=== PATIENT | male | born 1940 | race Caucasian/White ===

== ENCOUNTER 2016-08-10 07:44 | Day surgery (SDC) | payer MEDICARE, BC ==
[~2016-08-10 07:44] MED LIST: CHONDR SU A NA/HYALUR INTRAOC KIT (SURGICARE) ONE; EPINEPHRINE INJ/PF 1 MG/1 ML AMPULE ONE; KETOROLAC TROMETHAMINE 0.45% 4 DROP/0.4 ML DROPERETTE OD PRN; LIDOCAINE 1% INJ-PF (10 MG/ML) 30 ML SDV ONE; PHENYLEPHRINE/KETOROLAC 1%-0.3% 4 ML VIAL ONE
[2016-08-10] MEDS: TETRACAINE HCL 0.5% OPH SOLN 2 ML OD PRN ×3 (08:20→09:03)
[2016-08-10] MEDS: TROPICAMIDE 1% OPH SOLN 3 ML OD PRN ×3 (08:21→08:43)
[2016-08-10] MEDS: BESIFLOXACIN HCL 0.6% OPH SUSP 5 ML BOTTLE OD PRN ×2 (08:22→08:45)
[2016-08-10] MEDS: CYCLOPENTOLATE 0.2%/PHENYLEPHRINE 1% OPH SOLN 2 ML OD PRN ×3 (08:22→08:44)
[2016-08-10] MEDS ORDERED: MIDAZOLAM 2 MG/2 ML INJ ONE ×2 (08:49→09:11)
[2016-08-10] MEDS ORDERED: FENTANYL CITRATE INJ/PF 100 MCG/2 ML AMPUL ONE (08:49)
[2016-08-10] MEDS ORDERED: FLUMAZENIL INJ 0.5 MG/5 ML VIAL IV ONE (09:34)
[2016-08-10] MEDS ORDERED: DIPHENHYDRAMINE HCL 50 MG/ML VIAL ONE (09:34)
== END 2016-08-10 11:22 | disposition home or self-care (01) ==
LOC: SC 07:44
PROVIDERS: ATTEND Internal Medicine
PROC: 08RJ3JZ Replacement of Right Lens with Synthetic Substitute, Percutaneous Approach (ICD-10-PCS; principal; 2016-08-10 09:00)
DX: H25.811 Combined forms of age-related cataract, right eye (principal); H57.03 Miosis; K21.9 Gastro-esophageal reflux disease without esophagitis; E11.9 Type 2 diabetes mellitus without complications; I10 Essential (primary) hypertension; I25.2 Old myocardial infarction; Z79.899 Other long term (current) drug therapy; Z86.73 Personal history of transient ischemic attack (TIA), and cerebral infarction without residual deficits; Z79.4 Long term (current) use of insulin; Z79.82 Long term (current) use of aspirin; Z79.02 Long term (current) use of antithrombotics/antiplatelets; Z88.8 Allergy status to other drugs, medicaments and biological substances; Z85.038 Personal history of other malignant neoplasm of large intestine; Z85.46 Personal history of malignant neoplasm of prostate
CPT/HCPCS: 66982; 82962; J3490 ×3; J2250; A9270; J1200; J3010; C9447; 142; J0171

== ENCOUNTER 2016-09-21 08:41 | Day surgery (SDC) | payer MEDICARE, BC ==
[~2016-09-21 08:41] MED LIST changes: -CHONDR SU A NA/HYALUR INTRAOC KIT (SURGICARE) ONE; -EPINEPHRINE INJ/PF 1 MG/1 ML AMPULE ONE; -LIDOCAINE 1% INJ-PF (10 MG/ML) 30 ML SDV ONE; -PHENYLEPHRINE/KETOROLAC 1%-0.3% 4 ML VIAL ONE
[2016-09-21] MEDS: TETRACAINE HCL 0.5% OPH SOLN 2 ML OD PRN ×3 (09:14→10:03)
[2016-09-21] MEDS: TROPICAMIDE 1% OPH SOLN 3 ML OD PRN ×3 (09:14→09:34)
[2016-09-21] MEDS: CYCLOPENTOLATE 0.2%/PHENYLEPHRINE 1% OPH SOLN 2 ML OD PRN ×3 (09:15→09:35)
[2016-09-21] MEDS: BESIFLOXACIN HCL 0.6% OPH SUSP 5 ML BOTTLE OD PRN ×4 (09:15→10:27)
[2016-09-21] MEDS ORDERED: PHENYLEPHRINE/KETOROLAC 1%-0.3% 4 ML VIAL ONE (09:25)
[2016-09-21] MEDS ORDERED: LIDOCAINE 1% INJ-PF (10 MG/ML) 30 ML SDV ONE (09:26)
[2016-09-21] MEDS ORDERED: CHONDR SU A NA/HYALUR INTRAOC KIT (SURGICARE) ONE (09:26)
[2016-09-21] MEDS ORDERED: MIDAZOLAM 2 MG/2 ML INJ ONE (09:36)
[2016-09-21] MEDS ORDERED: DIPHENHYDRAMINE HCL 50 MG/ML VIAL ONE (09:36)
--- NOTE | 2016-09-21 18:03 | [facility] OPERATIVE REPORT E ---
[facility] Operative Report NAME: PAOLA RODRIGUEZ AGE: 75Y DATE OF SURGERY: 09/22/2015 ROOM: PREOPERATIVE DIAGNOSES: 1. CATARACT, RIGHT EYE. POSTOPERATIVE DIAGNOSES: 1. CATARACT, RIGHT EYE. OPERATION: Complex cataract extraction with use of a Malyugin ring due to a very myotic pupil. SURGEON: GRIFFIN RANDALL M.D. ANESTHESIA: Topical. PROCEDURE: After obtaining appropriate consent, the patient's right eye was prepped and draped in sterile fashion as well as the surgeon in a sterile manner and cataract surgery was started. First a paracentesis blade was used to make a small side-port incision. Viscoelastic was used to inflate the anterior chamber. Next a 2.4 mm incision was made with the paracentesis blade. A continuous capsulorrhexis incision was made using a cystotome and Utrata forceps. Following this hydrodissection was carried out to make the lens fully loose and mobile and it was rotated 90 degrees. Following this, a zinlud-kqt-tppgfhh technique was used to phacoemulsify the lens with a CDE of 13.99. The remaining cortex was removed with irrigation/aspiration. Provisc was instilled into the capsular bag to inflate the bag. A SN60WF, 24.0 diopter lens was placed. The remaining viscoelastic material was removed with irrigation/aspiration. Following this, a 10-0 nylon suture was used to close the incision and it was found to be watertight. Vigamox was instilled in the eye and a protective shield was placed over the eye. The patient returned to the postoperative recovery in stable condition. DICTATING PHYSICIAN: GRIFFIN RANDALL M.D. [id number] PHY#: [id number] ID: [id number] JOB#: [id number] ACCT: [id number] cc:GRIFFIN RANDALL M.D. > MARY
--- NOTE | 2016-09-21 18:08 | DISCHARGE SUMMARY E ---
Discharge Summary NAME: PAOLA RODRIGUEZ : 1940 AGE: 75Y ADMITTED: 09/21/2016 DISCHARGED: 09/21/2016 REASON FOR ADMISSION: This is a 75-year-old male who underwent cataract extraction of the right eye. DIAGNOSES: 1. Cataract, right eye. HOSPITAL COURSE: The patient underwent surgery because he was having difficulty driving at night secondary to oncoming headlights and trouble reading fine print. He should be on a regular diet. No bending at his waist. No heavy lifting. He should use his Besivance, Ilevro, and Durezol at 3:00 p.m. and 8:00 p.m. and sleep with a rigid shield, and I will see him for a 1-day postoperative tomorrow. DICTATING PHYSICIAN: GRIFFIN RANDALL M.D. [id number] PHY#: [id number] ID: [id number] JOB#: [id number] ACCT: [id number] cc:GRIFFIN RANDALL M.D. > MTDD
== END 2016-09-21 11:25 | disposition home or self-care (01) ==
LOC: SC 08:41
PROVIDERS: ATTEND Internal Medicine
PROC: 08RJ3JZ Replacement of Right Lens with Synthetic Substitute, Percutaneous Approach (ICD-10-PCS; principal; 2016-09-21 10:00)
DX: H25.813 Combined forms of age-related cataract, bilateral (principal); H57.03 Miosis; E11.9 Type 2 diabetes mellitus without complications; I10 Essential (primary) hypertension; K21.9 Gastro-esophageal reflux disease without esophagitis; Z79.4 Long term (current) use of insulin; Z86.73 Personal history of transient ischemic attack (TIA), and cerebral infarction without residual deficits; Z79.899 Other long term (current) drug therapy; Z79.82 Long term (current) use of aspirin; Z79.02 Long term (current) use of antithrombotics/antiplatelets; I25.2 Old myocardial infarction; Z95.1 Presence of aortocoronary bypass graft; Z88.0 Allergy status to penicillin; Z88.8 Allergy status to other drugs, medicaments and biological substances; Z85.46 Personal history of malignant neoplasm of prostate; Z85.038 Personal history of other malignant neoplasm of large intestine
CPT/HCPCS: 66982; 82962; V2632; J2250; J3490 ×2; A9270; J1200; C9447; 142

== ENCOUNTER 2016-10-12 09:09 | Day surgery (SDC) | payer MEDICARE, BC ==
[~2016-10-12 09:09] MED LIST changes: -KETOROLAC TROMETHAMINE 0.45% 4 DROP/0.4 ML DROPERETTE OD PRN; +KETOROLAC TROMETHAMINE 0.45% 4 DROP/0.4 ML DROPERETTE OS PRN
[2016-10-12] MEDS ORDERED: MIDAZOLAM 2 MG/2 ML INJ ONE (09:10)
[2016-10-12] MEDS ORDERED: CHONDR SU A NA/HYALUR INTRAOC KIT (SURGICARE) ONE (09:24)
[2016-10-12] MEDS ORDERED: LIDOCAINE 1% INJ-PF (10 MG/ML) 30 ML SDV ONE (09:24)
[2016-10-12] MEDS ORDERED: PHENYLEPHRINE/KETOROLAC 1%-0.3% 4 ML VIAL ONE (09:24)
[2016-10-12] MEDS: TROPICAMIDE 1% OPH SOLN 3 ML OS PRN ×3 (09:44→10:05)
[2016-10-12] MEDS: CYCLOPENTOLATE 0.2%/PHENYLEPHRINE 1% OPH SOLN 2 ML OS PRN ×3 (09:44→10:05)
[2016-10-12] MEDS: BESIFLOXACIN HCL 0.6% OPH SUSP 5 ML BOTTLE OS PRN ×3 (09:44→11:03)
[2016-10-12] MEDS: TETRACAINE HCL 0.5% OPH SOLN 2 ML OS PRN ×3 (09:45→10:31)
--- NOTE | 2016-10-12 20:13 | [facility] OPERATIVE REPORT E ---
[facility] Operative Report NAME: PAOLA RODRIGUEZ AGE: 75Y DATE OF SURGERY: 10/12/2016 ROOM: PREOPERATIVE DIAGNOSIS: CATARACT, LEFT EYE. POSTOPERATIVE DIAGNOSIS: CATARACT, LEFT EYE. OPERATION: Cataract extraction with Toric intraocular lens implant of the left eye. SURGEON: GRIFFIN RANDALL M.D. ANESTHESIA: Topical. PROCEDURE: After obtaining appropriate consent, the patient's left eye was prepped and draped in sterile fashion as well as the surgeon in a sterile manner and cataract surgery was started. First a paracentesis blade was used to make a small side-port incision. Viscoelastic was used to inflate the anterior chamber. Next a 2.4 mm incision was made with the paracentesis blade. A continuous capsulorrhexis incision was made using a cystotome and Utrata forceps. Following this hydrodissection was carried out to make the lens fully loose and mobile and it was rotated 90 degrees. Following this, a hqvfoh-vks-grhsgag technique was used to phacoemulsify the lens with a CDE of 11.37. The remaining cortex was removed with irrigation/aspiration. Provisc was instilled into the capsular bag to inflate the bag. A SN6AT4, 21.5 diopter lens rotated to 176 degrees was [address]. The remaining viscoelastic material was removed with irrigation/aspiration. Following this, a 10-0 nylon suture was used to close the incision and it was found to be watertight. Vigamox was instilled in the eye and a protective shield was placed over the eye. The patient returned to the postoperative recovery in stable condition. DICTATING PHYSICIAN: GRIFFIN RANDALL M.D. [id number] PHY#: [id number] ID: [id number] JOB#: [id number] ACCT: [id number] cc:GRIFFIN RANDALL M.D. >
--- NOTE | 2016-10-12 20:13 | DISCHARGE SUMMARY E ---
Discharge Summary NAME: PAOLA RODRIGUEZ : 1940 AGE: 75Y ADMITTED: 10/12/2016 DISCHARGED: 10/12/2016 This is a 75-year-old male who underwent cataract extraction with Toric intraocular lens of the left eye. DIAGNOSIS: Cataract, left eye. He underwent surgery because he having difficulty driving at night secondary to significant glare from headlights. DISCHARGE INSTRUCTIONS: He is to be on a regular diet. No bending at his waist, no heavy lifting. He is to use Besivance, Ilevro, and Durezol at 3:00 p.m. and 8:00 p.m., and sleep with a rigid shield. I will see him for his 1-day postoperative tomorrow. DICTATING PHYSICIAN: GRIFFIN RANDALL M.D. [id number] PHY#: [id number] ID: [id number] JOB#: [id number] ACCT: [id number] cc:GRIFFIN RANDALL M.D. >
== END 2016-10-12 12:05 | disposition home or self-care (01) ==
LOC: SC 09:09
PROVIDERS: ATTEND Internal Medicine
PROC: 08RK3JZ Replacement of Left Lens with Synthetic Substitute, Percutaneous Approach (ICD-10-PCS; principal; 2016-10-12 10:30)
DX: H25.812 Combined forms of age-related cataract, left eye (principal); Z96.1 Presence of intraocular lens; H57.03 Miosis; I10 Essential (primary) hypertension; E11.9 Type 2 diabetes mellitus without complications; Z88.0 Allergy status to penicillin; Z88.8 Allergy status to other drugs, medicaments and biological substances
CPT/HCPCS: 66984; 82962; V2787; J2250; J3490 ×2; A9270; C9447; 142

== ENCOUNTER → 2016-12-07 | Outpatient (CLI) | payer MEDICARE, BC ==
[2016-12-07 11:25] LABS: ABSOLUTE EOSINOPHILS # (AUTO) 0.1 10^3/uL (0.0-0.6); ABSOLUTE MONOCYTES (AUTO) 0.9 10^3/uL (0.1-1.4); ABSOLUTE NEUT (AUTO) 4.8 10^3/uL (1.7-8.2); BASOPHILS % (AUTO) 0.2 % (0-2); EOSINOPHILS % (AUTO) 1.6 % (0-6); HEMATOCRIT 36.9 % (37.9-51.0); HEMOGLOBIN 12.4 g/dL (13.5-17.0); HGB HCT DIFFERENCE 0.3; LYMPHOCYTES % (AUTO) 14.7 % (13-45); MEAN CORPUSCULAR HEMOGLOBIN 33.6 pg (27.0-33.4); MEAN CORPUSCULAR HGB CONC 33.6 g/dL (32.0-36.0); MEAN CORPUSCULAR VOLUME 100 fl (80-97); MONOCYTES % (AUTO) 12.7 % (3-13); RED BLOOD COUNT 3.69 10^6/uL (4.35-5.55); RED CELL DISTRIBUTION WIDTH 13.4 % (11.5-14.0); SEGMENTED NEUTROPHILS % (AUTO) 70.8 % (42-78); WHITE BLOOD COUNT 6.8 10^3/uL (4.0-10.5)
[2016-12-07 11:47] LABS: IRON 130.8 ug/dL (49-181)
== END ==
LOC: LAB 10:25
PROVIDERS: ATTEND Specialist
DX: D50.9 Iron deficiency anemia, unspecified (principal); C25.0 Malignant neoplasm of head of pancreas; R97.0 Elevated carcinoembryonic antigen [CEA]; R10.9 Unspecified abdominal pain
CPT/HCPCS: 36415; 82378; 82728; 83540; 85025

== ENCOUNTER → 2016-12-11 | Outpatient (CLI) | payer MEDICARE, BC ==
--- NOTE | 2016-12-11 14:51 | RADIOLOGY REPORT (SQ) ---
EXAM DESCRIPTION: CAROTID DOPPLER COMPLETED DATE/TIME: 12/11/2016 2:43 pm REASON FOR STUDY: DIZZINESS R42 DIZZINESS AND GIDDINESS prior right endarterectomy COMPARISON: None. TECHNIQUE: Grayscale ultrasound, Doppler velocity and spectra, and color Doppler images acquired of the extra-cranial carotid and vertebral arteries. Images stored on PACS. LIMITATIONS: None. FINDINGS: RIGHT CAROTID CCA Velocities: Within normal limits. ICA Velocities Peak systolic 1.2 m/s. End diastolic 0.25 m/s. Proximal ICA/CCA peak systolic ratio 1.2. Spectra normal. No significant plaque. LEFT CAROTID CCA Velocities: Within normal limits. ICA Velocities Peak systolic 0.81 m/s. End diastolic 0.20 m/s. Proximal ICA/CCA peak systolic ratio 0.8. There is complex plaque in the carotid bulb. VERTEBRAL ARTERIES: Antegrade flow. Normal waveforms. SUBCLAVIAN ARTERIES: No finding. OTHER: Velocities are elevated in the left external carotid artery. IMPRESSION: NO HEMODYNAMICALLY SIGNIFICANT STENOSIS. COMMENT: Quality ID #195: Velocity criteria are extrapolated from the diameter data as defined by t he Society of Radiologists in Ultrasound Consensus Conference. Radiology 2003: 229; 340-346. TECHNICAL DOCUMENTATION: JOB ID: [id number] [employer]- All Rights Reserved
== END ==
LOC: SP 13:43
PROVIDERS: ATTEND Family Medicine
DX: R42 Dizziness and giddiness (principal)
CPT/HCPCS: 93880

== ENCOUNTER → 2016-12-19 | Outpatient (CLI) | payer MEDICARE, BC ==
--- NOTE | 2016-12-19 11:56 | RADIOLOGY REPORT (SQ) ---
EXAM DESCRIPTION: MRA NECK WITHOUT COMPLETED DATE/TIME: 12/19/2016 11:13 am REASON FOR STUDY: ARTERIOSCLEROSIS OF CAROTID ARTERY I65.29 OCCLUSION AND STENOSIS OF UNSPECIFIED C AROTID ARTERY I65.23 OCCLUSION AND STENOSIS OF BILATERAL CAROTID ARTERIES COMPARISON: None. TECHNIQUE: Axial 2-D volume acquisition imaging through the extracranial carotid and vertebral arter ies with reformatting using 3-D MIPS. LIMITATIONS: None. FINDINGS: RIGHT CAROTID ARTERY: No stenosis or occlusive changes. Limited visualization of the orig in. LEFT CAROTID ARTERY: No stenosis or occlusive changes. Limited visualization of the origin. VERTEBRAL ARTERY: The left vertebral artery is dominant and patent. The right vertebral artery is sm all and inconsistently visualized throughout its course. OTHER: No other significant finding. IMPRESSION: 1. UNREMARKABLE MRI OF THE CAROTID ARTERIES. NO SIGNIFICANT STENOSIS. 2. DOMINANT LEFT VERTEBRAL ARTERY. RIGHT VERTEBRAL ARTERY IS VERY SMALL AND INCONSISTENTLY VISUALIZE D. CANNOT EXCLUDE STENOSIS OR SHORT SEGMENT OCCLUSION. COMMENT: Quality ID #195: Measurements of distal internal carotid diameter were used as the denomin ator for stenosis measurement. TECHNICAL DOCUMENTATION: JOB ID: [id number] [employer] All Rights Reserved
--- NOTE | 2016-12-19 12:03 | RADIOLOGY REPORT (SQ) ---
EXAM DESCRIPTION: MRA HEAD WITHOUT COMPLETED DATE/TIME: 12/19/2016 11:13 am REASON FOR STUDY: OCCLUSION AND STENOSIS OF BILATERAL CAROTID ARTERIES I65.29 OCCLUSION AND STENOSI S OF UNSPECIFIED CAROTID ARTERY I65.23 OCCLUSION AND STENOSIS OF BILATERAL CAROTID ARTERIES COMPARISON: None. TECHNIQUE: Axial 3-D uzwe-jx-xxzozj acquisition imaging performed through the brain in the area of t he [place]. Images reformatted using 3-D MIPS. LIMITATIONS: None. FINDINGS: SOURCE IMAGES: No unexpected findings on source images. No large masses. 3-D MIP: No aneurysm. No occlusions. Focal narrowing of the cavernous right internal carotid artery . origin of the right posterior cerebral artery. Apparent focal narrowing at the origin of th e right superior cerebellar artery. OTHER: No other significant finding. IMPRESSION: SUSPECT STENOSIS OF THE CAVERNOUS RIGHT INTERNAL CAROTID ARTERY. FOCAL STENOSIS AT THE ORIGIN OF THE RIGHT SUPERIOR CEREBELLAR ARTERY. NO OCCLUSIONS. TECHNICAL DOCUMENTATION: JOB ID: [id number] [employer]- All Rights Reserved
== END ==
LOC: RAD 09:06
PROVIDERS: ATTEND Internal Medicine Cardiovascular Disease
DX: I65.23 Occlusion and stenosis of bilateral carotid arteries (principal)
CPT/HCPCS: 70544; 70547

== ENCOUNTER → 2017-03-21 | Outpatient (CLI) | payer MEDICARE, BC ==
[2017-03-21 08:54] LABS: ABSOLUTE EOSINOPHILS # (AUTO) 0.2 10^3/uL (0.0-0.6); ABSOLUTE NEUT (AUTO) 6.5 10^3/uL (1.7-8.2); BASOPHILS % (AUTO) 0.3 % (0-2); EOSINOPHILS % (AUTO) 1.8 % (0-6); HEMOGLOBIN 13.5 g/dL (13.5-17.0); HGB HCT DIFFERENCE -0.5; LYMPHOCYTES % (AUTO) 11.5 % (13-45); MEAN CORPUSCULAR HEMOGLOBIN 33.5 pg (27.0-33.4); MEAN CORPUSCULAR VOLUME 101 fl (80-97); MONOCYTES % (AUTO) 11.8 % (3-13); RED BLOOD COUNT 4.04 10^6/uL (4.35-5.55); RED CELL DISTRIBUTION WIDTH 12.8 % (11.5-14.0); SEGMENTED NEUTROPHILS % (AUTO) 74.6 % (42-78); WHITE BLOOD COUNT 8.7 10^3/uL (4.0-10.5)
[2017-03-21 09:22] LABS: ALANINE AMINOTRANSFERASE 21 U/L (21-72); ALBUMIN 4.5 g/dL (3.5-5.0); ALKALINE PHOSPHATASE 79 U/L (38-126); ANION GAP 10 (5-19); ASPARTATE AMINO TRANSFERASE 22 U/L (17-59); BILIRUBIN,DIRECT 0.4 mg/dL (0.0-0.4); BILIRUBIN,TOTAL 0.5 mg/dL (0.2-1.3); BLOOD UREA NITROGEN 18 mg/dL (7-20); CALCIUM 9.9 mg/dL (8.4-10.2); CARBON DIOXIDE 30 mmol/L (22-30); CHLORIDE 100 mmol/L (98-107); CHOLESTEROL 162.02 mg/dL (0-200); CREATININE RESULT 1.19 mg/dL (0.52-1.25); Direct HDL 30 mg/dL (>40); GLUCOSE 197 mg/dL (75-110); POTASSIUM 5.2 mmol/L (3.6-5.0); SODIUM 140.1 mmol/L (137-145); TOTAL PROTEIN 7.9 g/dL (6.3-8.2); TRIGLYCERIDES 301 mg/dL (<150)
[2017-03-21 09:33] LABS: DIRECT LDL 92 mg/dL (<100)
[2017-03-21 09:37] LABS: VLDL CHOLESTEROL 60.2 mg/dL (10-31)
== END ==
LOC: LAB 08:40
PROVIDERS: ATTEND Family Medicine
DX: E78.2 Mixed hyperlipidemia (principal); E11.9 Type 2 diabetes mellitus without complications; I10 Essential (primary) hypertension
CPT/HCPCS: 36415; 80053; 80061; 83036; 85025

== ENCOUNTER → 2017-06-07 | Outpatient (CLI) | payer MEDICARE, BC ==
--- NOTE | 2017-06-07 12:42 | RADIOLOGY REPORT (SQ) ---
EXAM DESCRIPTION: CT SOFT TISSUE NECK WITH COMPLETED DATE/TIME: 06/07/2017 10:42 am REASON FOR STUDY: CHRONIC SIALOADENITIS K11.23 CHRONIC SIALOADENITIS COMPARISON: 03/23/[address] soft tissue neck CT brain 03/02/2016 TECHNIQUE: Post IV contrasted scanning from skull base through lung apices with review of bone, soft tissue and lung windows. Reconstructed coronal and sagittal MPR images reviewed. All images stored on PACS. All CT scanners at this facility use dose modulation, iterative reconstruction, and/or weight based d osing when appropriate to reduce radiation dose to as low as reasonably achievable (ALARA). [facility]: Dose Right [facility]: CareDose [facility]: Dose Right [facility]: Teradose 4D [facility]: Proenza Schouer CONTRAST TYPE AND DOSE: contrast/concentration: Isovue 370.00 mg/ml; Total Contrast Delivered: 75.0 ml; Total Saline Delivered: 55.0 ml The patient was pre-medicated for contrast allergy with an oral steroid prep. She had no immediate r eaction post injection of Isovue 370. RENAL FUNCTION: Creatinine 1.2 RADIATION DOSE: 23.3 mGy . LIMITATIONS: None. FINDINGS: SKULL BASE: Inferior brain parenchyma in the field of view is unremarkable. Post cataract surgery. MAJOR SALIVARY GLANDS: Right sub mandibular gland is not identified. This could be surgically absent or severely atrophied. Left submandibular gland unremarkable. Sublingual glands unremarkable. The bilateral parotid glands exhibits diffuse fatty replacement and are diffusely enlarged. No calcu li within the glands for Torsten's duct. No carotid ductal dilatation. No focal masses. No surroun ding inflammatory change in the adjacent fat. LYMPHADENOPATHY: No adenopathy. MUCOSAL MASSES OR ASYMMETRY: No mucosal masses or asymmetry. LARYNX/CORDS: No abnormal findings. VASCULAR STRUCTURES: There is carotid bifurcation calcification bilaterally, right bifurcation is pos t endarterectomy, widely patent. On the left side, calcific plaque is present causing about 50% diam eter narrowing of the proximal left ICA. Vertebral arteries are patent, left vertebral artery domina nt. Origins of the great vessels off the aortic arch are unremarkable. LUNG APICES: Clear. BONES: Mild degenerative disc changes in the cervical spine without high-grade central or foraminal s tenosis THYROID: Normal size. No masses. PARANASAL SINUSES: Clear. OTHER: No other significant finding. IMPRESSION: Post right carotid endarterectomy Right submandibular gland not identified, may be surgically absent Bilateral parotid fatty gland replacement, no dilated ducts, stone, or parotid masses are identified TECHNICAL DOCUMENTATION: JOB ID: [id number] Quality ID # [id number]: Final reports with documentation of one or more dose reduction techniques (e.g., Au tomated exposure control, adjustment of the mA and/or kV according to patient size, use of iterative reconstruction technique) 2010 [employer]- All Rights Reserved
== END ==
LOC: RAD 10:01
PROVIDERS: ATTEND Otolaryngology
DX: K11.23 Chronic sialoadenitis (principal)
CPT/HCPCS: 70491; 82565

== ENCOUNTER 2017-06-13 09:17 | Day surgery (SDC) | payer MEDICARE, BC ==
--- NOTE | 2017-06-12 14:37 | HISTORY AND PHYSICAL E ---
History and Physical NAME: PAOLA RODRIGUEZ : 1940 AGE: 76Y ADMITTED: 06/13/2017 ROOM: REASON FOR ADMISSION: Patient is being admitted for colon exam. HISTORY OF PRESENT ILLNESS: The patient is known to me. I saw him in the year 2000. At that time, he did have colonoscopy. PAST MEDICAL HISTORY: 1. Patient did have resected polyp from transverse colon and ascending colon, and sigmoid diverticulosis. 2. History of coronary artery disease. Patient's sagger soak in [address] Weeks. 3. Hiatus hernia and reflux. The patient used to see Dr. Khanna. REVIEW OF SYSTEMS: Hypertension, diabetes, coronary artery disease. SURGERIES: Appendectomy, tonsillectomy. He did have colonoscopy in 2002 showing polyps of ascending colon, adenomatous polyp, sigmoid diverticulosis, hiatal hernia and reflux. The patient did have another colonoscopy in 2013, at that time, 73 years old. Benign-looking polyp, ascending colon, 0.5 cm, resected by biopsy, and the polyp came back adenomatous polyp of ascending colon. MEDICATIONS: 1. Glucotrol. 2. Nitro. 3. Zantac. 4. Plavix. 5. Metoprolol. 6. Nexium. 7. Crestor. 8. Lexapro. 9. Fish oil. 10. Baby aspirin. ALLERGIES: 1. IODINE. 2. . PHYSICAL EXAMINATION: GENERAL: Blood pressure is 110/60, pulse 80, respirations 18, temp is 98. HEAD, EYES, EARS, NOSE, THROAT: Normal. NECK: Supple. LUNGS: Clear. ABDOMEN: Soft. NEUROLOGIC: Negative. LABORATORY DATA: Most recent labs are a white count of 6, hemoglobin 12, hematocrit 36. The patient's iron is normal. CEA is normal. CONCLUSION: 1. History of polyps. 2. Coronary artery disease. PLAN: Patient is admitted for colon screening on 06/13/2017. DICTATING PHYSICIAN: OLGA FOSTER M.D. [id number] PHY#: [id number] ID: [id number] JOB#: [id number] ACCT: [id number] cc:OLGA FOSTER M.D. >
[2017-06-13] MEDS ORDERED: ONDANSETRON HCL INJ/PF 4 MG/2 ML SDV ONE (09:51)
[2017-06-13] MEDS ORDERED: GLYCOPYRROLATE INJ 0.4 MG/2 ML VIAL ONE (09:51)
[2017-06-13] MEDS ORDERED: NALOXONE HCL INJ/PF 0.4 MG/1 ML SDV ONE (09:51)
[2017-06-13] MEDS ORDERED: FLUMAZENIL INJ 0.5 MG/5 ML VIAL ONE (09:52)
[2017-06-13] MEDS ORDERED: FENTANYL CITRATE INJ/PF 100 MCG/2 ML AMPUL ONE (09:52)
[2017-06-13] MEDS ORDERED: MIDAZOLAM 2 MG/2 ML INJ ONE (09:52)
[2017-06-13] MEDS ORDERED: EPINEPHRINE INJ 1 MG/10 ML DISP.SYRIN ONE (09:52)
[2017-06-13] MEDS ORDERED: GLUCAGON,HUMAN RECOMB 1 MG INJ ONE (09:53)
[2017-06-13] MEDS: MIDAZOLAM 2 MG/2 ML INJ ONE ×2 (10:33→10:46)
[2017-06-13] MEDS: MORPHINE SULFATE 10 MG/ML INJ ONE ×2 (10:35→10:44)
[2017-06-13 12:00] VITALS: BP 128/72
[2017-06-13 12:40] LABS: ABSOLUTE EOSINOPHILS # (AUTO) 0.1 10^3/uL (0.0-0.6); ABSOLUTE LYMPHOCYTES (AUTO) 1.2 10^3/uL (0.5-4.7); ABSOLUTE MONOCYTES (AUTO) 1.3 10^3/uL (0.1-1.4); ABSOLUTE NEUT (AUTO) 11.3 10^3/uL (1.7-8.2); BASOPHILS % (AUTO) 0.2 % (0-2); EOSINOPHILS % (AUTO) 0.8 % (0-6); HEMATOCRIT 39.9 % (37.9-51.0); HEMOGLOBIN 13.7 g/dL (13.5-17.0); HGB HCT DIFFERENCE 1.2; LYMPHOCYTES % (AUTO) 8.3 % (13-45); MEAN CORPUSCULAR HEMOGLOBIN 33.7 pg (27.0-33.4); MEAN CORPUSCULAR HGB CONC 34.3 g/dL (32.0-36.0); MEAN CORPUSCULAR VOLUME 98 fl (80-97); MONOCYTES % (AUTO) 9.6 % (3-13); RED BLOOD COUNT 4.06 10^6/uL (4.35-5.55); RED CELL DISTRIBUTION WIDTH 13.5 % (11.5-14.0); SEGMENTED NEUTROPHILS % (AUTO) 81.1 % (42-78); WHITE BLOOD COUNT 13.9 10^3/uL (4.0-10.5)
--- NOTE | 2017-06-13 13:27 | DISCHARGE SUMMARY E ---
Discharge Summary NAME: PAOLA RODRIGUEZ : 1940 AGE: 76Y ADMITTED: 06/13/2017 DISCHARGED: 06/13/2017 PROCEDURE: Colonoscopy. FINAL DIAGNOSES: 1. Diverticulosis sigmoid descending colon. 2. Diminutive polyp 2 mm cecum. 3. Diminutive polyp 2 mm transverse colon. 4. Large amount of stool in the right colon. RECOMMENDATION: Patient discharged with full liquid. Hold aspirin, nonsteroidal, and Plavix for today. Patient to see us in the office in the next few days. Patient allergic to FENTANYL, PENICILLIN, TETANUS, IODINE, GLUCOPHAGE, PREDNISONE, TAGAMET, AND INVOKANA. Colonoscopy no bleeding, no malignancy. I am going to obtain baseline CBC and CEA. DICTATING PHYSICIAN: OLGA FOSTER M.D. [id number] [id number] PHY#: [id number] ID: [id number] JOB#: [id number] ACCT: [id number] cc:OLGA FOSTER M.D. >
--- NOTE | 2017-06-13 13:34 | OPERATIVE REPORT E ---
Operative Report NAME: PAOLA RODRIGUEZ : 1940 AGE: 76Y DATE OF SURGERY: 06/13/2017 ROOM: PREOPERATIVE DIAGNOSES: 1. Colon screening. 2. History of polyps. POSTOPERATIVE DIAGNOSES: 1. Diverticulosis sigmoid descending colon. 2. Diminutive polyp in the transverse colon 2 mm, small biopsy. 3. A 2 mm diminutive polyp in the cecum. SURGEON: OLGA FOSTER M.D. DESCRIPTION: The right colon has large amount of solid stool. No biopsy obtained. Small tiny polyp 2 mm in the cecum. Cecum otherwise normal. Ascending colon normal. Transverse colon 2 mm diminutive polyp, sigmoid descending colon diverticulosis. Rectum shows mild external hemorrhoids. CONCLUSION: No evidence of malignancy. No bleeding. Diminutive tiny polyps. External hemorrhoids. Inadequate prep. RECOMMENDATION: Followup colonoscopy after 2 years with better prep. SEDATION: Patient allergic to FENTANYL. It caused him itching. We gave him 5 mg of morphine, 4 mg of Versed with adequate sedation. He is not allergic to morphine. He received 5 mg with good report and good sedation. He received prior morphine at [facility], he said, with no problem. We gave him morphine 5 mg and he responded nicely. DICTATING PHYSICIAN: OLGA FOSTER M.D. [id number] [id number] PHY#: [id number] ID: [id number] JOB#: [id number] ACCT: [id number] cc:OLGA FOSTER M.D. >
== END 2017-06-13 12:15 | disposition home or self-care (01) ==
LOC: END 09:17
PROVIDERS: ATTEND Specialist
PROC: 0DJD8ZZ Inspection of Lower Intestinal Tract, Via Natural or Artificial Opening Endoscopic (ICD-10-PCS; principal; 2017-06-13 10:00)
DX: Z12.11 Encounter for screening for malignant neoplasm of colon (principal); K57.30 Diverticulosis of large intestine without perforation or abscess without bleeding; D12.0 Benign neoplasm of cecum; D12.3 Benign neoplasm of transverse colon; R97.0 Elevated carcinoembryonic antigen [CEA]; K64.4 Residual hemorrhoidal skin tags; Z86.010 Personal history of colon polyps; I10 Essential (primary) hypertension; E11.9 Type 2 diabetes mellitus without complications; I25.10 Atherosclerotic heart disease of native coronary artery without angina pectoris; K21.9 Gastro-esophageal reflux disease without esophagitis; K44.9 Diaphragmatic hernia without obstruction or gangrene; Z79.02 Long term (current) use of antithrombotics/antiplatelets; Z79.899 Other long term (current) drug therapy; Z79.84 Long term (current) use of oral hypoglycemic drugs; Z91.048 Other nonmedicinal substance allergy status
CPT/HCPCS: 36415; 82962; 82378; 85025; G0121; J2250; J0171; J1610; J2270; J2405; 45378; J2310; J3010; J3490

== ENCOUNTER 2017-09-13 00:01 | Observation (INO) | payer MEDICARE, BC ==
[2017-09-13] MEDS ORDERED: ASPIRIN 81 MG TABLET, CHEWABLE PO ONE (00:17)
--- NOTE | 2017-09-13 00:29 | ER Document Report ---
ED General - General Stated Complaint: CHEST PAIN Time Seen by Provider: 09/13/17 00:17 TRAVEL OUTSIDE OF THE [place] IN LAST 30 DAYS: No - HPI Notes: Patient is a 76-year-old male with a history of coronary artery disease (prev coronary bypass, stent placement), carotid artery stenosis, diabetes, hypercholesterolemia who presents to the ED complaining of intermittent episodes of left sided chest pain with one episode of vomiting and diarrhea this evening. Patient states that the pain did not radiate. Patient states that the pain would last for several minutes. Nitro took away his pain. Patient currently does not have any chest pain, but did have pain prior to arrival when EMS arrived. Patient did receive 324 mg of aspirin when paramedics arrived. Patient has not had any associated dyspnea on exertion. Patient states that he is no longer on any blood thinners as he had a bleeding issue in the past. Patient states that he is otherwise eating and drinking without any difficulties. He is ambulating without any difficulties as well. He is urinating normally. Denies any headache, fever, neck pain, URI, sore throat, palpitations, syncope, cough, shortness of breath, wheeze, dyspnea, abdominal pain, nausea, urinary retention, dysuria, hematuria, back pain, loss of control of bowel or bladder, numbness/tingling, saddle anesthesia, muscle paralysis/weakness, dizziness, weakness, diaphoresis, or rash. Patient denies any smoking or IV drug use. Denies any previous history of DVT or PE. No prolonged immobilization, distance travel, or hormone use. - Related Data Allergies/Adverse Reactions: metformin [From Glucophage] Allergy (Intermediate, Verified 06/13/17 09:48) VOMITING, HIVES metformin HCl [From Glucophage] Allergy (Intermediate, Verified 06/13/17 09:48) NAUSEA, HIVES Penicillins Allergy (Intermediate, Verified 06/13/17 09:48) RASH Tetanus Vaccines and Toxoid [Tetanus] Allergy (Intermediate, Verified 06/13/17 09:48) RASH cimetidine [From Tagamet] Allergy (Verified 06/13/17 09:48) cimetidine HCl [From Tagamet] Allergy (Verified 06/13/17 09:48) fentanyl Allergy (Verified 06/13/17 09:48) Generalized Itching [place] Allergy (Intermediate, Uncoded 10/12/16 10:19) RASH Past Medical History - Social History Smoking Status: Never Smoker Family History: Reviewed & Not Pertinent - Past Medical History Cardiac Medical History: Reports: Hx Coronary Artery Disease, Hx Heart Attack - SLIGHT X2, Hx Hypercholesterolemia, Hx Hypertension - MEDS, Hx Peripheral Vascular Disease Pulmonary Medical History: Reports: Hx COPD, Hx Pneumonia Denies: Hx Asthma, Hx Bronchitis Neurological Medical History: Reports: 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 Denies: Hx Seizures Endocrine Medical History: Reports: Hx Diabetes Mellitus Type 2 GI Medical History: Reports: Hx Gastroesophageal Reflux Disease. Denies: Hx Hepatitis, Hx Hiatal Hernia, Hx Ulcer Musculoskeltal Medical History: Reports Hx Arthritis - generalized Psychiatric Medical History: Reports: Hx Depression Infectious Medical History: Denies: Hx Hepatitis Past Surgical History: Reports: Hx Appendectomy, Hx Cardiac Surgery - Quad bypass, stents x2., Hx Carotid Endarterectomy - RIGHT, Hx Coronary Artery Bypass Graft - 4 vessel CABG 2001, Hx Coronary Stent - x2, 2006, Hx Open Heart Surgery - JUN 2001,CAROTID 2001, Hx Orthopedic Surgery - 15 surgeries on the right arm and hand, Hx Tonsillectomy. Denies: Hx Pacemaker - CARDIAC IMPLANT MONITOR HAD 1 YEAR FOR DIZZINESS - Immunizations Hx Diphtheria, Pertussis, Tetanus Vaccination: No - allergic Hx Pneumococcal Vaccination: 01/20/07 Review of Systems - Review of Systems -: Yes All other systems reviewed and negative Physical Exam - Vital signs Vitals: Temp Pulse Resp BP Pulse Ox 98.3 F 84 18 149/69 H 98 09/13/17 00:01 09/13/17 00:01 09/13/17 00:01 09/13/17 00:01 09/13/17 00:01 - Notes Notes: PHYSICAL EXAMINATION: GENERAL: Well-appearing, well-nourished and in no acute distress. A&Ox4. Appears comfortable and answers questions appropriately. HEAD: Atraumatic, normocephalic. EYES: Pupils equal round and reactive to light, extraocular movements intact, sclera anicteric, conjunctiva are normal. ENT: Nares patent and without discharge. oropharynx clear without exudates. No tonsilar hypertrophy or erythema. Moist mucous membranes. NECK: Normal range of motion, supple without lymphadenopathy Chest: non-tender. no flail chest. LUNGS: Breath sounds clear to auscultation bilaterally and equal. No wheezes rales or rhonchi. HEART: Regular rate and rhythm without murmurs, rubs, gallops. ABDOMEN: Soft, nontender, nondistended abdomen. No guarding, no rebound. No masses appreciated. Normal bowel sounds present. No CVA tenderness bilaterally. Musculoskeletal: FROM to passive/active. Strength 5+/5. Ken neg b/l. Calves are soft, nontender, and non-erythematous. Extremities: No cyanosis, clubbing, or edema b/l. Peripheral pulses 2+. Capillary refill less than 3 seconds. NEUROLOGICAL: Cranial nerves grossly intact. Normal speech, normal gait. Normal sensory, motor exams PSYCH: Normal mood, normal affect. SKIN: Warm, Dry, normal turgor, no rashes or lesions noted. Course - Re-evaluation Re-evalutation: 09/13/17 00:29 Chest pain protocol started. labs and imaging pending pt received aspirin 324mg when EMS arrived Currently asymptomatic. 09/13/17 03:16 CBC, CMP, cardiac enzymes 2/EKG, chest x-ray are all unremarkable for any acute pathology. Patient has remained asymptomatic at this time. Vitals are stable. PE is otherwise unremarkable. Patient has a heart score of 4. Reviewed with the hospitalist who accepted patient for chest pain observation. Patient and family are in agreement with admission/plan. - Vital Signs Vital signs: Temp Pulse Resp BP Pulse Ox 98.3 F 84 17 141/64 H 97 09/13/17 00:01 09/13/17 00:01 09/13/17 01:00 09/13/17 01:00 09/13/17 01:00 - Laboratory Result Diagrams: 09/12/17 23:36 09/12/17 23:36 Laboratory results interpreted by me: 09/12/17 09/12/17 23:36 23:36 RBC 3.70 L Hgb 12.1 L Hct 35.1 L RDW 14.8 H Lymphocytes % 11.2 L Est GFR (Non-Af Amer) 59 L Direct Bilirubin 0.5 H ALT 18 L Creatine Kinase 28 L Discharge - Discharge Clinical Impression: Chest pain Qualifiers: Chest pain type: unspecified Qualified Code(s): R07.9 - Chest pain, unspecified Condition: Stable Disposition: ADMITTED OBSERVATION Admitting Provider: Hospitalist - Dr. Kenney Unit Admitted: Telemetry Referrals: MAE DIA MD [Primary Care Provider] - Follow up as needed
[2017-09-13 00:30] LABS: ABSOLUTE EOSINOPHILS # (AUTO) 0.1 10^3/uL (0.0-0.6); ABSOLUTE LYMPHOCYTES (AUTO) 1.1 10^3/uL (0.5-4.7); ABSOLUTE MONOCYTES (AUTO) 1.2 10^3/uL (0.1-1.4); ABSOLUTE NEUT (AUTO) 7.6 10^3/uL (1.7-8.2); BASOPHILS % (AUTO) 0.1 % (0-2); EOSINOPHILS % (AUTO) 0.8 % (0-6); HEMATOCRIT 35.1 % (37.9-51.0); HEMOGLOBIN 12.1 g/dL (13.5-17.0); LYMPHOCYTES % (AUTO) 11.2 % (13-45); MEAN CORPUSCULAR HEMOGLOBIN 32.5 pg (27.0-33.4); MEAN CORPUSCULAR HGB CONC 34.3 g/dL (32.0-36.0); MEAN CORPUSCULAR VOLUME 95 fl (80-97); MONOCYTES % (AUTO) 12.1 % (3-13); PLATELET COUNT 335 10^3/uL (150-450); RED CELL DISTRIBUTION WIDTH 14.8 % (11.5-14.0); SEGMENTED NEUTROPHILS % (AUTO) 75.8 % (42-78); TOTAL CELLS COUNTED % (AUTO) 100 %
--- NOTE | 2017-09-13 00:35 | RADIOLOGY REPORT (SQ) ---
EXAM DESCRIPTION: CHEST SINGLE VIEW CLINICAL HISTORY: chest pain COMPARISON: 03/02/2026 FINDINGS: Single frontal view of the chest. Atherosclerotic calcification and tortuosity of thoracic aorta. Heart is not enlarged. Prior median sternotomy. Leads overlie the chest. Blunting of the left costophrenic angle with linear left basilar opacities. No pneumothorax. No acute osseous abnormalities. Upper abdominal soft tissues are unremarkable. IMPRESSION: 1. Blunting of the left costophrenic angle may be related to pleural thickening or small left pleural effusion. 2. Streaky left basilar opacities may be related to scar/atelectasis however developing pneumonia could produce a similar appearance. Continued radiographic follow-up recommended.
[2017-09-13] MEDS ORDERED: ASPIRIN 81 MG TABLET, CHEWABLE ONE (00:42)
[2017-09-13 00:43] LABS: ALANINE AMINOTRANSFERASE 18 U/L (21-72); ALKALINE PHOSPHATASE 70 U/L (38-126); ANION GAP 12 (5-19); ASPARTATE AMINO TRANSFERASE 21 U/L (17-59); BILIRUBIN,DIRECT 0.5 mg/dL (0.0-0.4); BILIRUBIN,TOTAL 0.7 mg/dL (0.2-1.3); BLOOD UREA NITROGEN 15 mg/dL (7-20); CALCIUM 9.4 mg/dL (8.4-10.2); CARBON DIOXIDE 26 mmol/L (22-30); CHLORIDE 101 mmol/L (98-107); CREATINE KINASE 28 U/L (55-170); GLUCOSE 96 mg/dL (75-110); SODIUM 139.1 mmol/L (137-145); TOTAL PROTEIN 7.4 g/dL (6.3-8.2)
[2017-09-13 01:06] LABS: CREATINE KINASE MB 0.92 ng/mL (<4.55)
[2017-09-13 01:09] LABS: TROPONIN I < 0.012 ng/mL
[2017-09-13] MEDS ORDERED: ACETAMINOPHEN 325 MG TABLET PO PRN (03:28)
[2017-09-13] MEDS ORDERED: DOCUSATE SODIUM 100 MG CAPSULE PO PRN ×2 (03:28→17:00)
[2017-09-13] MEDS ORDERED: PROMETHAZINE HCL INJ 25 MG/1 ML VIAL IV PRN (03:28)
[2017-09-13] MEDS ORDERED: DEXTROSE 40% GEL 15 GM TUBE PO PRN ×2 (03:28)
[2017-09-13] MEDS ORDERED: ALBUTEROL SULFATE 0.083% NEB 2.5 MG/3 ML AMPUL NEB PRN (03:28)
[2017-09-13] MEDS ORDERED: GLUCAGON,HUMAN RECOMB 1 MG INJ SUBCUT PRN (03:28)
[2017-09-13] MEDS ORDERED: DEXTROSE 50%-WATER 25 GM/50 ML DISP.SYRIN IV PRN ×2 (03:28)
[2017-09-13] MEDS ORDERED: INFLUENZA ADLT QUAD (36MOS+) 2017-18 VAC 0.5 ML SYR IM PRN (04:51)
[2017-09-13] MEDS ORDERED: INSULIN LISPRO 100 UNIT/ML 3 ML VIAL SUBCUT PRN (05:25)
[2017-09-13] MEDS ORDERED: LANSOPRAZOLE 30 MG TAB.RAP.DR PO SCH (06:00)
[2017-09-13] MEDS: HEPARIN SOD (PORCINE) 5,000 UNIT/ML 1 ML SYRINGE SUBCUT SCH ×2 (06:00→15:41)
[2017-09-13 08:24] LABS: HEMATOCRIT 31.8 % (37.9-51.0); HEMOGLOBIN 10.7 g/dL (13.5-17.0); MEAN CORPUSCULAR HEMOGLOBIN 31.8 pg (27.0-33.4); MEAN CORPUSCULAR HGB CONC 33.7 g/dL (32.0-36.0); MEAN CORPUSCULAR VOLUME 94 fl (80-97); PLATELET COUNT 308 10^3/uL (150-450); RED BLOOD COUNT 3.37 10^6/uL (4.35-5.55); RED CELL DISTRIBUTION WIDTH 14.6 % (11.5-14.0); WHITE BLOOD COUNT 7.7 10^3/uL (4.0-10.5)
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
[2017-09-13 08:52] LABS: ANION GAP 11 (5-19); BLOOD UREA NITROGEN 14 mg/dL (7-20); CALCIUM 9.2 mg/dL (8.4-10.2); CARBON DIOXIDE 27 mmol/L (22-30); CHLORIDE 102 mmol/L (98-107); GLUCOSE 88 mg/dL (75-110); POTASSIUM 4.7 mmol/L (3.6-5.0); SODIUM 140.2 mmol/L (137-145)
[2017-09-13] MEDS ORDERED: CLOPIDOGREL BISULFATE 75 MG TABLET PO SCH (10:00)
[2017-09-13] MEDS ORDERED: RANOLAZINE 500 MG TAB.SR.12H PO SCH ×2 (10:00→22:00)
[2017-09-13] MEDS ORDERED: ASPIRIN 81 MG TABLET, CHEWABLE PO SCH (10:00)
--- NOTE | 2017-09-13 10:34 | EKG REPORT ---
SEVERITY:- ABNORMAL ECG - SINUS RHYTHM INCOMPLETE RIGHT BUNDLE BRANCH BLOCK : Confirmed by: Gregoria Xiong 13-Sep-2017 10:33:16
--- NOTE | 2017-09-13 10:34 | EKG REPORT ---
SEVERITY:- ABNORMAL ECG - SINUS RHYTHM IVCD, CONSIDER ATYPICAL RBBB : Confirmed by: Gregoria Xiong 13-Sep-2017 10:33:11
--- NOTE | 2017-09-13 12:40 | XCELERA REPORT ---
[address] [address] Transthoracic Echocardiogram Report Name: PAOLA RODRIGUEZ Age: 76 yrs Gender: Male : 1940 Patient Status: Inpatient Patient Location: [address] [place] [address] Study Date: 09/13/2017 10:53 AM Height: 71 in Weight: 173 lb BSA: 2.0 m2 Procedure: A complete two-dimensional transthoracic echocardiogram was performed (2D, M-mode, spectral and color flow Doppler). The study was technically adequate with some images being suboptimal in quality. Reason For Study: chest pain Ordering Physician: FANI REICH Performed By: Whit Coates Interpretation Summary The left ventricular ejection fraction is normal. Doppler measurements suggest pseudonormalized left ventricular relaxation, which is associated with grade II/IV or mild to moderate diastolic dysfunction There is mild concentric left ventricular hypertrophy. The left ventricle is grossly normal size. Not all wall segments were well visualized. The right ventricular systolic function is normal. The left atrium is mildly dilated. The right atrium is normal in size There is a trace amount of mitral regurgitation There is no mitral valve stenosis. No aortic regurgitation is present. There is no aortic valve stenosis There is a trace or physiologic amount of tricuspid regurgitation Tricuspid regurgitation jet envelope not well defined to measure RV systolic pressure accurately. The aortic root is not well visualized but is probably normal size. The inferior vena cava appeared normal and decreased > 50% with respiration (RAP 5-10 mmHg) There is no pericardial effusion. MMode/2D Measurements & Calculations RVDd: 3.4 cm LVIDd: 4.8 cmFS: 40.7 % Ao root diam: 3.5 cm IVSd: 1.0 cm LVIDs: 2.9 cmEDV(Teich): 108.0 ml LVPWd: 1.0 cmESV(Teich): 30.9 ml Ao root area: 9.6 cm2 EF(Teich): 71.4 % LA dimension: 3.8 cm LVOT diam: 2.1 cm LVOT area: 3.5 cm2 Doppler Measurements & Calculations MV E max jules: MV P1/2t max jules: Ao V2 max: LV V1 max P.1 cm/sec 75.5 cm/sec 152.0 cm/sec 4.1 mmHg MV A max jules: MV P1/2t: 71.4 msec Ao max PG: LV V1 max: 104.6 cm/sec MVA(P1/2t): 3.1 cm2 9.2 mmHg 101.2 cm/sec MV E/A: 0.70 MV dec slope: HELEN(V,D): 2.3 cm2 309.7 cm/sec2 PA V2 max: PI end-d jules: TR max jules: 109.6 cm/sec 129.0 cm/sec 226.8 cm/sec PA max PG: TR max P.8 mmHg 20.6 mmHg Left Ventricle The left ventricle is grossly normal size. There is mild concentric left ventricular hypertrophy. The left ventricular ejection fraction is normal. Doppler measurements suggest pseudonormalized left ventricular relaxation, which is associated with grade II/IV or mild to moderate diastolic dysfunction. Not all wall segments were well visualized. Right Ventricle The right ventricle is grossly normal size. There is normal right ventricular wall thickness. The right ventricular systolic function is normal. Atria The right atrium is normal in size. The left atrium is mildly dilated. Interarterial septum not well visualized and not well dopplered. Cannot comment on ASD/PFO presence. Mitral Valve The mitral valve is grossly normal. There is no mitral valve stenosis. There is a trace amount of mitral regurgitation. Aortic Valve The aortic valve opens well. There is no aortic valve stenosis. No aortic regurgitation is present. Tricuspid Valve The tricuspid valve is not well visualized, but is grossly normal. There is no tricuspid stenosis. There is a trace or physiologic amount of tricuspid regurgitation. Tricuspid regurgitation jet envelope not well defined to measure RV systolic pressure accurately. Pulmonic Valve The pulmonic valve is not well visualized. Great Vessels The aortic root is not well visualized but is probably normal size. The inferior vena cava appeared normal and decreased > 50% with respiration (RAP 5-10 mmHg). Effusions There is no pericardial effusion. : FANI REICH > Gregoria Xiong
--- NOTE | 2017-09-13 14:07 | DRAGON STRESS TEST REPORT ---
INTRAVENOUS LEXISCAN CARDIOLITE STRESS TEST USING SINGLE PHOTON EMMISION COMPUTERIZED TOMOGRAPHIC. DATE OF PROCEDURE: September 13, 2017, INDICATION : Chest pain CARDIAC RISK FACTORS: Known CAD with prior stents and bypass surgery RESTING EKG: Sinus rhythm, right bundle branch block pattern with secondary ST- T wave changes STRESS EKG: No significant changes noted with LexiScan bolus REASON FOR TERMINATION: Protocol. PROCEDURE REPORT: Baseline heart rate 85 beats per minute with blood pressure of 150/63. Patient had no significant complaints. Heart rate at 2 minutes post bolus 95 with a blood pressure of 131/58. 3 minutes post bolus heart rate 93 with blood pressure of 148/63. No significant EKG changes were noted. Patient had no significant complaints during the procedure or postprocedure. Patient injected with Aminophyllin 75 mg at 3 minutes or later after Lexiscan bolus. CONCLUSIONS: Normal EKG and hemodynamic response to IV LexiScan. NUCLEAR DATA: At rest the patient was given 12.87 millicuries of technetium 99 sestamibi injected intravenously. As per protocol rest gated SPECT images were obtained. On day of stress test, the patient was given intravenous LexiScan at a dose of 0.4 mg in 5 mL intravenously, followed by flush with normal saline. Subsequently the stress dose of 35.3 millicuries of technetium 99 sestamibi was injected intravenously. As per protocol stress gated images were obtained. NUCLEAR INTERPRETATION: Both raw and processed data were used for interpretation. Visual, qualitative, computer-generated quantitative data was used. There was good myocardial uptake of technetium compound. Motion artifact and soft tissue attenuations were noted. Increased visceral uptake was noted. Mild transient perfusion defect noted in the mid and distal anterolateral wall, diagonal territory, SDS score of 2, consistent with mild ischemia., No definitive areas of fixed perfusion defect or scars noted. EKG gated imaging showed LV EF at 56 %, rest and stress gated EF similar visually. T. I D. ratio was 1.03. Lung heart ratio noted to be within normal limits visually. No significant extracardiac and abnormal radiotracer activities were noted. RV free wall uptake was noted to be WNL. IMPRESSION: Also refer to comments under nuclear interpretation. Also test results needs to be interpreted in the context of pretest probability. 1. Mild transient perfusion defect noted in the mid and distal anterolateral wall, diagonal territory, SDS score of 2, consistent with mild ischemia. 2. There is no definitive scintigraphic evidence of myocardial infarction/scar. 3. EKG gated imaging shows left ventricular ejection fraction of approx. 56 %. 4. Clinical correlation requested as occasionally single vessel disease or balanced ischemia could be missed. In approximately 10% of the cases Lexiscan may not cause adequate vasodilatory stress. RECOMMENDATIONS: Aggressive risk factor modification and medical management. Further evaluation may be needed if continued symptoms or other high risk indicators are noted on clinical evaluation. Close cardiology follow-up is also recommended. Clinical correlation with echocardiogram derived ejection fraction. Inability to exercise by itself can lead to increased cardiovascular event risks. Consider cardiology consultation and or follow-up if clinically indicated. 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 MARY
[2017-09-13 16:11] VITALS: BP 160/65
[2017-09-13] MEDS ORDERED: METOPROLOL SUCCINATE 50 MG TAB.SR.24H PO PRN (16:32)
[2017-09-13] MEDS ORDERED: DIPHENHYDRAMINE HCL 25 MG CAPSULE PO PRN (16:32)
--- NOTE | 2017-09-13 17:57 | PDOC DISCHARGE SUMMARY ---
General - Admit/Disc Date/PCP Admission Date/Primary Care Provider: 09/13/17 03:19 MAE DIA Discharge Date: 09/13/17 - Discharge Diagnosis (1) Chest pain at rest Is this a current diagnosis for this admission?: Yes (2) Essential hypertension Is this a current diagnosis for this admission?: No (3) Nausea & vomiting Is this a current diagnosis for this admission?: Yes (4) Type 2 diabetes mellitus Is this a current diagnosis for this admission?: No - Additional Information Resuscitation Status: Full Code Discharge Diet: Cardiac Discharge Activity: Activity As Tolerated Prescriptions: Nitroglycerin 0.4 mg SL PRN PRN 30 Days #15 tab.subl PRN Reason: chest pain Home Medications: Aspirin [Aspirin EC] 81 mg PO DAILY 09/13/17 Cholecalciferol (Vitamin D3) [Vitamin D3 2000 unit Tablet] 2,000 unit PO DAILY 09/13/17 Cyanocobalamin (Vitamin B-12) [Vitamin B-12 1000 mcg Tablet] 1,000 mcg PO DAILY 09/13/17 Diphenhydramine HCl [Benadryl 25 mg Capsule] 25 mg PO BIDP PRN 09/13/17 Escitalopram Oxalate [Lexapro 10 mg Tablet] 10 mg PO DAILY 09/13/17 Esomeprazole Magnesium [Nexium] 40 mg PO QAM 09/13/17 Fenofibrate [Lipofen] 150 mg PO DAILY 09/13/17 Folic Acid [Folvite 1 mg Tablet] 1 mg PO DAILY 09/13/17 Gabapentin [Neurontin 300 mg Capsule] 600 mg PO Q6 09/13/17 Insulin Aspart [Novolog Insulin (Aspart) 100 unit/mL] 0 unit SUBCUT .SLD SCALE 09/13/17 Insulin Degludec [Tresiba Flextouch U-200] 80 units SUBCUT QHS 09/13/17 Metoprolol Succinate [Toprol Xl 50 mg Tab.sr] 50 mg PO DAILYP PRN 09/13/17 Nitroglycerin 0.4 mg SL PRN PRN 30 Days #15 tab.subl 09/13/17 Ranolazine [Ranexa] 1,000 mg PO Q12 09/13/17 Rosuvastatin Calcium [Crestor 20 mg Tablet] 20 mg PO QHS 09/13/17 Ubidecarenone/Vit E Acet [Co Q-10 100 mg Softgel] 1 each PO DAILY 09/13/17 Vit C/E/Zn/Coppr/Lutein/Zeaxan [Preservision Areds 2 Softgel] 1 each PO BID 02/23 History of Present Illness History of Present Illness: PAOLA RODRIGUEZ is a 76 year old malewith history of CAD (post CABG 4 and PCI 2 years later with stenting of one vessel with 2 stents per patient), recent GI bleed 3 weeks ago (off Plavix) was admitted with above-mentioned complaints. According to the patient, he had chest pain around 10 AM while at rest, localized to the anterior chest wall. He describes it as pressure-like, 4/10 in intensity which lasted for about half an hour with no alleviating or aggravating factors. He does take a baby aspirin daily. He had a similar episode around 4 PM but it lasted longer so he called 911. The pain was relieved by 3 sublingual nitro and 4 baby aspirins given prior to admission. The pain was associated with some nausea but no shortness of breath, palpitations, diaphoresis or any syncope. He apparently vomited once around 8 PM and his vomitus was bilious, nonbloody. Original H&P dictated by Dr. Livingston. Please refer to it for complete details. Hospital Course Hospital Course: Patient was admitted for chest pain. First 2 troponins were negative. Stress test showed mild transient perfusion defect noted in the mid and distal anterior lateral wall, diagnosed territory, SDS score of 2, consistent with mild ischemia. There is no definite scintigraphic evidence of mild cardial infarction/scar. EKG gated imaging shows left ventricular ejection fraction of approximately 56%. Patient on echo has grade 2 mild to moderate diastolic dysfunction. Patient has no pedal edema. Patient was resumed on his cardiac medication. Patient is currently chest pain-free. Patient was prescribed nitroglycerin to take as needed for chest pain. Patient is aware of how to take medication when needed. Blood glucose appear fairly well-controlled. EKG did not show any abnormalities. Patient blood pressures fairly well controlled. Vomiting diarrhea resolved. Patient is feeling well. Patient no longer has any chest pain. Physical Exam Vital Signs: Temp Pulse Resp BP Pulse Ox 98.4 F 93 18 160/65 H 96 09/13/17 16:00 09/13/17 16:00 09/13/17 16:00 09/13/17 16:00 09/13/17 16:00 Intake & Output 09/12/17 09/13/17 09/14/17 06:59 06:59 06:59 Intake Total 10 Balance 10 Weight 78.9 kg General appearance: PRESENT: no acute distress, well-developed, well-nourished Head exam: PRESENT: normocephalic Eye exam: PRESENT: EOMI. ABSENT: scleral icterus Ear exam: PRESENT: normal external ear exam Mouth exam: PRESENT: moist Neck exam: ABSENT: carotid bruit, JVD, lymphadenopathy, thyromegaly Respiratory exam: PRESENT: clear to auscultation carrington. ABSENT: rales, rhonchi, wheezes Cardiovascular exam: PRESENT: RRR. ABSENT: diastolic murmur, rubs, systolic murmur Pulses: PRESENT: normal dorsalis pedis pul Vascular exam: PRESENT: normal capillary refill GI/Abdominal exam: PRESENT: normal bowel sounds, soft. ABSENT: distended, guarding, mass, organolmegaly, rebound, tenderness Rectal exam: PRESENT: deferred Extremities exam: PRESENT: full ROM. ABSENT: calf tenderness, clubbing, pedal edema Neurological exam: PRESENT: alert, awake, oriented to person, oriented to place , oriented to time, oriented to situation, CN II-XII grossly intact. ABSENT: motor sensory deficit Psychiatric exam: PRESENT: appropriate affect, normal mood. ABSENT: homicidal ideation, suicidal ideation Skin exam: PRESENT: dry, intact, warm. ABSENT: cyanosis, rash Results Laboratory Results: 09/13/17 07:55 09/13/17 07:55 09/13/17 09/13/17 07:55 07:55 WBC 7.7 RBC 3.37 L Hgb 10.7 L Hct 31.8 L MCV 94 MCH 31.8 MCHC 33.7 RDW 14.6 H Plt Count 308 Sodium 140.2 Potassium 4.7 Chloride 102 Carbon Dioxide 27 Anion Gap 11 BUN 14 Creatinine 0.94 Est GFR ( Amer) > 60 Est GFR (Non-Af Amer) > 60 Glucose 88 Calcium 9.2 09/13/17 09/13/17 07:55 14:33 Troponin I < 0.012 < 0.012 Impressions: Chest X-Ray 09/13/17 00:17 IMPRESSION: 1. Blunting of the left costophrenic angle may be related to pleural thickening or small left pleural effusion. 2. Streaky left basilar opacities may be related to scar/atelectasis however developing pneumonia could produce a similar appearance. Continued radiographic follow-up recommended. Qualifiers - * PATEINT BEING DISCHARGED WITH ANY OF THE FOLLOWING DIAGNOSIS?: No Plan Time Spent: Less than 30 Minutes
[2017-09-13] MEDS ORDERED: GABAPENTIN 300 MG CAPSULE PO SCH (18:00)
[2017-09-13] MEDS ORDERED: (PENDING PHARMACY ID) (Vit C/E/Zn/Coppr/Lutein/Zeaxan [Preservision Areds 2 Softgel] 1 EAC PO SCH (18:00)
[2017-09-13] MEDS ORDERED: REGADENOSON INJ 0.4 MG/5 ML DISP.SYRIN IV ONE (18:15)
[2017-09-13] MEDS ORDERED: AMINOPHYLLINE INJ/PF 250 MG/10 ML SDV IV ONE (18:15)
[2017-09-13] MEDS ORDERED: (PENDING PHARMACY ID) (Rosuvastatin Calcium [Crestor 20 Mg Tablet] 20 MG) PO SCH (22:00)
[2017-09-13] MEDS ORDERED: ATORVASTATIN CALCIUM 40 MG TABLET PO SCH (22:00)
[2017-09-13] MEDS ORDERED: (PENDING PHARMACY ID) (Ranolazine [Ranexa] 1,000 MG) PO SCH (22:00)
[2017-09-13] MEDS ORDERED: INSULIN DEGLUDEC 80 UNIT SUBCUT SCH (22:00)
[2017-09-14] MEDS ORDERED: ASPIRIN 81 MG TABLET, ENT COATED PO SCH (10:00)
[2017-09-14] MEDS ORDERED: CYANOCOBALAMIN (VITAMIN B-12) 1,000 MCG TABLET PO SCH (10:00)
[2017-09-14] MEDS ORDERED: ESCITALOPRAM OXALATE 10 MG TABLET PO SCH (10:00)
[2017-09-14] MEDS ORDERED: (PENDING PHARMACY ID) (Ubidecarenone/Vit E Acet [Co Q-10 100 Mg Softgel] 1 EACH) PO SCH (10:00)
[2017-09-14] MEDS ORDERED: FENOFIBRATE 150 MG PO SCH (10:00)
[2017-09-14] MEDS ORDERED: FOLIC ACID 1 MG TABLET PO SCH (10:00)
[2017-09-14] MEDS ORDERED: (PENDING PHARMACY ID) (Cholecalciferol (Vitamin D3) [Vitamin D3 2000 Unit Tablet] 2,000 UN PO SCH (10:00)
== END 2017-09-13 18:40 | disposition home or self-care (01) ==
LOC: ER 00:01 → EH 03:19 → 5 04:40
PROVIDERS: ADMIT Internal Medicine Geriatric Medicine; ATTEND Internal Medicine Geriatric Medicine
PROC: 3E0234Z Introduction of Serum, Toxoid and Vaccine into Muscle, Percutaneous Approach (ICD-10-PCS; principal; 2017-09-13)
DX: R07.89 Other chest pain (principal); I10 Essential (primary) hypertension; R11.2 Nausea with vomiting, unspecified; R19.7 Diarrhea, unspecified; E11.51 Type 2 diabetes mellitus with diabetic peripheral angiopathy without gangrene; I65.29 Occlusion and stenosis of unspecified carotid artery; I25.2 Old myocardial infarction; E78.5 Hyperlipidemia, unspecified; M21.831 Other specified acquired deformities of right forearm; K21.9 Gastro-esophageal reflux disease without esophagitis; Z95.5 Presence of coronary angioplasty implant and graft; Z95.1 Presence of aortocoronary bypass graft; Z79.82 Long term (current) use of aspirin; Z79.899 Other long term (current) drug therapy; Z87.19 Personal history of other diseases of the digestive system; Z90.49 Acquired absence of other specified parts of digestive tract; Z87.01 Personal history of pneumonia (recurrent); Z79.4 Long term (current) use of insulin; Z98.890 Other specified postprocedural states; Z89.021 Acquired absence of right finger(s); Z89.422 Acquired absence of other left toe(s); Z86.73 Personal history of transient ischemic attack (TIA), and cerebral infarction without residual deficits; Z23 Encounter for immunization
CPT/HCPCS: 93005 ×2; 99285; 36415; 82553; 82962; 82550; 85025; 85027; 80048; 80053; 84484; 83880; 93306; 93017; 71045; 78452; 90686; 93010; A9500; J2785; A9270 ×3; J1644; J3490; J0280; Q9969; G0378

== ENCOUNTER 2018-08-16 02:40 | Emergency (ER) | payer MEDICARE, BC ==
[2018-08-16 03:18] VITALS: BP 123/70
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
[2018-08-16 07:13] LABS: APPEARANCE,URINE CLOUDY; BILIRUBIN,URINE NEGATIVE (NEGATIVE); COLOR,URINE AMBER; GLUCOSE, URINE NEGATIVE (NEGATIVE); KETONES,URINE NEGATIVE (NEGATIVE); LEUKOCYTE ESTERASE,URINE SMALL (NEGATIVE); NITRITE,URINE NEGATIVE (NEGATIVE); PROTEIN,URINE 100 mg/dL (NEGATIVE); URINE SPECIFIC GRAVITY 1.012; UROBILINOGEN,URINE NEGATIVE mg/dL (<2.0)
== END 2018-08-16 08:01 | disposition home or self-care (01) ==
LOC: ER 02:40
DX: T83.010A Breakdown (mechanical) of cystostomy catheter, initial encounter (principal); Y84.6 Urinary catheterization as the cause of abnormal reaction of the patient, or of later complication, without mention of misadventure at the time of the procedure; N39.0 Urinary tract infection, site not specified; R31.0 Gross hematuria; C61 Malignant neoplasm of prostate; I25.10 Atherosclerotic heart disease of native coronary artery without angina pectoris; I10 Essential (primary) hypertension; E11.51 Type 2 diabetes mellitus with diabetic peripheral angiopathy without gangrene; J44.9 Chronic obstructive pulmonary disease, unspecified; Z88.8 Allergy status to other drugs, medicaments and biological substances; Z88.0 Allergy status to penicillin; Z88.7 Allergy status to serum and vaccine; Z88.5 Allergy status to narcotic agent; Z95.1 Presence of aortocoronary bypass graft; Z95.5 Presence of coronary angioplasty implant and graft
CPT/HCPCS: 81001; 87086; 99283

== ENCOUNTER → 2018-12-20 | Outpatient (CLI) | payer MEDICARE, BC ==
--- NOTE | 2018-12-20 11:32 | RADIOLOGY REPORT (SQ) ---
EXAM DESCRIPTION: U/S RETROPERITON (RENAL/AORTA) COMPLETED DATE/TIME: 12/20/2018 11:24 am REASON FOR STUDY: GROSS HEMATURIA (R31.0) R31.0 GROSS HEMATURIA COMPARISON: None. TECHNIQUE: Dynamic and static grayscale images acquired of the kidneys and bladder and recorded on P ACS. Additional selected color Doppler and spectral images recorded. LIMITATIONS: None. FINDINGS: RIGHT KIDNEY: Normal size. Normal echogenicity. No solid or suspicious masses. No h ydronephrosis. No calcifications. LEFT KIDNEY: Normal size. Normal echogenicity. No solid or suspicious masses. No hydronephrosi s. There is a small left renal cyst. This is measured 2.2 x 2.2 x 1.7 cm. No calcifications. BLADDER: No masses. OTHER FINDINGS: No other significant finding. IMPRESSION: Small left renal cyst. No other significant findings. TECHNICAL DOCUMENTATION: JOB ID: [id number] [employer]- All Rights Reserved Reading location - IP/workstation name: [email or web address]
== END ==
LOC: RAD 11:05
PROVIDERS: ATTEND Urology
DX: R31.0 Gross hematuria (principal); N28.1 Cyst of kidney, acquired
CPT/HCPCS: 76770

== ENCOUNTER 2019-01-12 16:57 | Emergency (ER) | payer MEDICARE, BC ==
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
[2019-01-12 20:37] VITALS: BP 150/78
[2019-01-12 21:05] LABS: APPEARANCE,URINE CLOUDY; BILIRUBIN,URINE NEGATIVE (NEGATIVE); COLOR,URINE DARK YELLOW; GLUCOSE, URINE 150 mg/dL (NEGATIVE); KETONES,URINE NEGATIVE (NEGATIVE); LEUKOCYTE ESTERASE,URINE LARGE (NEGATIVE); NITRITE,URINE NEGATIVE (NEGATIVE); PROTEIN,URINE 100 mg/dL (NEGATIVE); URINE SPECIFIC GRAVITY 1.017; UROBILINOGEN,URINE NEGATIVE mg/dL (<2.0)
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
== END 2019-01-12 20:44 | disposition home or self-care (01) ==
LOC: ER 16:57
DX: T83.091A Other mechanical complication of indwelling urethral catheter, initial encounter (principal); X58.XXXA Exposure to other specified factors, initial encounter; N48.89 Other specified disorders of penis; M54.6 Pain in thoracic spine; M79.10 Myalgia, unspecified site; I25.10 Atherosclerotic heart disease of native coronary artery without angina pectoris; I25.2 Old myocardial infarction; E78.00 Pure hypercholesterolemia, unspecified; I10 Essential (primary) hypertension; Z86.73 Personal history of transient ischemic attack (TIA), and cerebral infarction without residual deficits; E11.9 Type 2 diabetes mellitus without complications; Z95.1 Presence of aortocoronary bypass graft
CPT/HCPCS: 51702; 81001; 99283

== ENCOUNTER 2019-01-24 07:49 | Inpatient (IN) | payer MEDICARE, BC ==
[2019-01-24] MEDS ORDERED: NORMAL SALINE 1000 ML 1,000 ML IV ONE ×2 (07:56→09:16)
[2019-01-24] MEDS ORDERED: LEVOFLOXACIN 750 MG/D5W RTU 750 MG/150 ML RTUPB IV ONE (07:56)
[2019-01-24] MEDS ORDERED: ACETAMINOPHEN 325 MG TABLET PO ONE (07:56)
[2019-01-24] MEDS ORDERED: LIDOCAINE 2% URO-JET 5 ML KIT MM ONE (07:56)
[2019-01-24 08:27] LABS: AMORPHOUS SEDIMENT,URINE TRACE /HPF; APPEARANCE,URINE SLIGHTLY-CLOUDY; BILIRUBIN,URINE NEGATIVE (NEGATIVE); COLOR,URINE YELLOW; GLUCOSE, URINE NEGATIVE (NEGATIVE); KETONES,URINE NEGATIVE (NEGATIVE); LEUKOCYTE ESTERASE,URINE LARGE (NEGATIVE); NITRITE,URINE POSITIVE (NEGATIVE); PROTEIN,URINE 100 mg/dL (NEGATIVE); URINE SPECIFIC GRAVITY 1.011; UROBILINOGEN,URINE NEGATIVE mg/dL (<2.0)
[2019-01-24 08:31] LABS: ABSOLUTE LYMPHOCYTES (AUTO) 0.6 10^3/uL (0.5-4.7); ABSOLUTE MONOCYTES (AUTO) 0.6 10^3/uL (0.1-1.4); ABSOLUTE NEUT (AUTO) 10.3 10^3/uL (1.7-8.2); BASOPHILS % (AUTO) 0.4 % (0-2); EOSINOPHILS % (AUTO) 0.1 % (0-6); HEMATOCRIT 34.1 % (37.9-51.0); HEMOGLOBIN 11.6 g/dL (13.5-17.0); LYMPHOCYTES % (AUTO) 5.5 % (13-45); MEAN CORPUSCULAR HEMOGLOBIN 32.3 pg (27.0-33.4); MEAN CORPUSCULAR HGB CONC 34.1 g/dL (32.0-36.0); MEAN CORPUSCULAR VOLUME 95 fl (80-97); MONOCYTES % (AUTO) 4.8 % (3-13); PLATELET COUNT 336 10^3/uL (150-450); RED BLOOD COUNT 3.61 10^6/uL (4.35-5.55); SEGMENTED NEUTROPHILS % (AUTO) 89.2 % (42-78); TOTAL CELLS COUNTED % (AUTO) 100 %; WHITE BLOOD COUNT 11.6 10^3/uL (4.0-10.5)
--- NOTE | 2019-01-24 08:31 | RADIOLOGY REPORT (SQ) ---
EXAM DESCRIPTION: CHEST SINGLE VIEW COMPLETED DATE/TIME: 01/24/2019 8:15 am REASON FOR STUDY: fever, tachycardia COMPARISON: AP chest 03/02/2016, 09/13/2017 EXAM PARAMETERS: NUMBER OF VIEWS: One view. TECHNIQUE: Single frontal radiographic view of the chest acquired. RADIATION DOSE: NA LIMITATIONS: None. FINDINGS: LUNGS AND PLEURA: No acute infiltrates. No pleural effusion or pneumothorax. MEDIASTINUM AND HILAR STRUCTURES: No masses. Contour normal. HEART AND VASCULAR STRUCTURES: No cardiomegaly. Old sternotomy for CABG. BONES: No acute findings. HARDWARE: Loop recorder anterior left chest OTHER: No other significant finding. IMPRESSION: No acute findings TECHNICAL DOCUMENTATION: JOB ID: [id number] [employer]- All Rights Reserved Reading location - IP/workstation name: [email or web address]
[2019-01-24 08:34] LABS: INTERNATIONAL RATION (INR) 1.19; PROTHROMBIN TIME 15.2 SEC (11.4-15.4)
[2019-01-24 08:44] LABS: ALANINE AMINOTRANSFERASE 22 U/L (21-72); ALBUMIN 3.6 g/dL (3.5-5.0); ALKALINE PHOSPHATASE 67 U/L (38-126); ANION GAP 10 (5-19); ASPARTATE AMINO TRANSFERASE 46 U/L (17-59); BILIRUBIN,DIRECT 0.4 mg/dL (0.0-0.4); BILIRUBIN,TOTAL 0.7 mg/dL (0.2-1.3); BLOOD UREA NITROGEN 20 mg/dL (7-20); CALCIUM 8.9 mg/dL (8.4-10.2); CARBON DIOXIDE 26 mmol/L (22-30); CHLORIDE 100 mmol/L (98-107); CREATINE KINASE 313 U/L (55-170); GLUCOSE 140 mg/dL (75-110); POTASSIUM 5.3 mmol/L (3.6-5.0); TOTAL PROTEIN 7.1 g/dL (6.3-8.2)
[2019-01-24 08:50] LABS: VENOUS BLOOD BASE EXCESS 1.7 mmol/L; VENOUS BLOOD HCO3 25.8 mmol/L (20-32); VENOUS BLOOD PCO2 39.2 mmHg (35-63); VENOUS BLOOD PH 7.44 (7.30-7.42)
[2019-01-24 08:57] LABS: TROPONIN I 2.43 ng/mL
[2019-01-24] MEDS ORDERED: IPRATROPIUM/ALBUTEROL 0.5-2.5 MG/3 ML AMPUL NEB PRN (10:01)
[2019-01-24] MEDS ORDERED: PROMETHAZINE HCL INJ 25 MG/1 ML VIAL IV PRN (10:01)
[2019-01-24] MEDS ORDERED: ONDANSETRON HCL INJ/PF 4 MG/2 ML SDV IV PRN (10:01)
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
--- NOTE | 2019-01-24 13:42 | EKG REPORT ---
SEVERITY:- ABNORMAL ECG - SINUS TACHYCARDIA IVCD, CONSIDER ATYPICAL RBBB ST DEPRESSION, CONSIDER ISCHEMIA, ANT-LAT LDS : Confirmed by: Jared Martinez MD 24-Jan-2019 13:41:26
--- NOTE | 2019-01-24 13:44 | EKG REPORT ---
SEVERITY:- ABNORMAL ECG - SINUS TACHYCARDIA IVCD, CONSIDER ATYPICAL RBBB ST DEPRESSION, CONSIDER ISCHEMIA, ANT-LAT LDS, CONSIDER L MAIN CRITICAL STENOSIS. : Confirmed by: Jared Martinez MD 24-Jan-2019 13:42:43
[2019-01-24] MEDS ORDERED: HEPARIN SOD (PORCINE) 5,000 UNIT/ML 1 ML VIAL SUBCUT SCH (14:00)
[2019-01-24] MEDS: RINGERS SOLUTION,LACTATED 1,000 ML IV PRN (14:56)
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
[2019-01-24] MEDS ORDERED: NITROGLYCERIN 0.4 MG/TAB 25 TAB/BOTTLE SL PRN (17:26)
[2019-01-24] MEDS ORDERED: (PENDING PHARMACY ID) (Ubidecarenone/Vit E Acet [Co Q-10 100 Mg Softgel] 1 EACH) PO SCH (18:00)
[2019-01-24] MEDS: DOCUSATE SODIUM 100 MG CAPSULE PO SCH (19:00)
[2019-01-24] MEDS ORDERED: HYDRALAZINE HCL INJ/PF 20 MG/1 ML SDV IV PRN (19:18)
[2019-01-24] MEDS ORDERED: METOPROLOL TARTRATE PF/INJ 5 MG/5 ML SDV IV ONE (19:30)
[2019-01-24] MEDS ORDERED: HYDRALAZINE HCL INJ/PF 20 MG/1 ML SDV IV ONE (19:30)
[2019-01-24] MEDS ORDERED: ASPIRIN 325 MG TABLET PO ONE (19:30)
[2019-01-24] MEDS: HEPARIN SODIUM,PORCINE/D5W 25,000 UNIT/250 ML RTUINJ IV PRN (19:34)
[2019-01-24] MEDS: RANOLAZINE 500 MG TAB.SR.12H PO SCH (21:51)
[2019-01-24] MEDS: ATORVASTATIN CALCIUM 40 MG TABLET PO SCH (21:51)
[2019-01-24] MEDS: ACETAMINOPHEN 325 MG TABLET PO PRN (21:51)
[2019-01-24] MEDS: METOPROLOL SUCCINATE 25 MG TAB.SR.24H PO SCH (21:52)
[2019-01-24] MEDS: FAMOTIDINE 20 MG TABLET PO SCH (21:52)
[2019-01-24] MEDS ORDERED: (PENDING PHARMACY ID) (Ranolazine [Ranexa] 1,000 MG) PO SCH (22:00)
[2019-01-24] MEDS ORDERED: (PENDING PHARMACY ID) (Rosuvastatin Calcium [Crestor 20 Mg Tablet] 20 MG) PO SCH (22:00)
[2019-01-25] MEDS: GABAPENTIN 300 MG CAPSULE PO SCH ×4 (00:28→16:59)
[2019-01-25] MEDS ORDERED: CEFEPIME 2 GM/D5W RTU 2 GM/50 ML RTUPB IV ONE (00:45)
[2019-01-25 04:21] LABS: ABSOLUTE LYMPHOCYTES (AUTO) 1.4 10^3/uL (0.5-4.7); ABSOLUTE MONOCYTES (AUTO) 1.3 10^3/uL (0.1-1.4); ABSOLUTE NEUT (AUTO) 9.9 10^3/uL (1.7-8.2); BASOPHILS % (AUTO) 0.3 % (0-2); HEMATOCRIT 31.4 % (37.9-51.0); HEMOGLOBIN 10.6 g/dL (13.5-17.0); LYMPHOCYTES % (AUTO) 11.2 % (13-45); MEAN CORPUSCULAR HEMOGLOBIN 32.3 pg (27.0-33.4); MEAN CORPUSCULAR HGB CONC 33.7 g/dL (32.0-36.0); MEAN CORPUSCULAR VOLUME 96 fl (80-97); MONOCYTES % (AUTO) 9.9 % (3-13); PLATELET COUNT 286 10^3/uL (150-450); RED BLOOD COUNT 3.28 10^6/uL (4.35-5.55); RED CELL DISTRIBUTION WIDTH 13.9 % (11.5-14.0); SEGMENTED NEUTROPHILS % (AUTO) 78.6 % (42-78); TOTAL CELLS COUNTED % (AUTO) 100 %; WHITE BLOOD COUNT 12.6 10^3/uL (4.0-10.5)
[2019-01-25 04:47] LABS: POTASSIUM 4.5 mmol/L (3.6-5.0)
[2019-01-25 04:49] LABS: ANION GAP 9 (5-19); BLOOD UREA NITROGEN 18 mg/dL (7-20); CALCIUM 8.3 mg/dL (8.4-10.2); CARBON DIOXIDE 25 mmol/L (22-30); CHLORIDE 100 mmol/L (98-107); GLUCOSE 192 mg/dL (75-110)
[2019-01-25] MEDS ORDERED: HEPARIN SOD (PORCINE) 1,000 UNIT/ML 1 ML VIAL ONE (05:11)
[2019-01-25] MEDS ORDERED: HEPARIN SOD (PORCINE) 1,000 UNIT/ML 10 ML VIAL ONE (05:14)
[2019-01-25] MEDS: RANOLAZINE 500 MG TAB.SR.12H PO SCH ×2 (09:38→21:43)
[2019-01-25] MEDS: CHOLECALCIFEROL (D3) 1,000 UNIT (25 MCG) TABLET PO SCH (09:39)
[2019-01-25] MEDS: METOPROLOL SUCCINATE 25 MG TAB.SR.24H PO SCH (09:40)
[2019-01-25] MEDS: ESCITALOPRAM OXALATE 10 MG TABLET PO SCH (09:40)
[2019-01-25] MEDS: FAMOTIDINE 20 MG TABLET PO SCH ×2 (09:40→21:43)
[2019-01-25] MEDS: FENOFIBRATE NANOCRYSTALLIZED 145 MG TABLET PO SCH (09:40)
[2019-01-25] MEDS: DOCUSATE SODIUM 100 MG CAPSULE PO SCH ×2 (09:47→17:01)
[2019-01-25] MEDS ORDERED: FENOFIBRATE 150 MG PO SCH (10:00)
[2019-01-25] MEDS ORDERED: (PENDING PHARMACY ID) (Cholecalciferol (Vitamin D3) [Vitamin D3 2000 Unit Tablet] 2,000 UN PO SCH (10:00)
[2019-01-25] MEDS ORDERED: LEVOFLOXACIN 500 MG/D5W RTU 500 MG/100 ML RTUPB IV SCH (10:00)
[2019-01-25] MEDS ORDERED: (PENDING PHARMACY ID) (Ubidecarenone/Vit E Acet [Co Q-10 100 Mg Softgel] 1 EACH) PO SCH (10:00)
[2019-01-25] MEDS ORDERED: CEFEPIME 2 GM/D5W RTU 2 GM/50 ML RTUPB IV SCH (10:00)
--- NOTE | 2019-01-25 11:29 | PDOC PROGRESS REPORT ---
Subjective Progress Note for:: 01/25/19 Subjective:: PAOLA RODRIGUEZ is a 78 year old male past medical history of COPD, TIA, diabetes type 2, GERD, depression, CAD status post CABG, prostate cancer status post chemoradiation, not a surgical candidate, complicated by urinary retention, suprapubic catheter in place on the right side, recurrent UTI. Patient was brought to ED by EMS after noticed that he was altered. As per EMS report patient had a fever, was alert to verbal command but was mumbling. In route to ED EMS recorded temperature of 100.6. As per who is at the bedside she thinks that the patient was overheated yesterday when he was working with his tractor. This morning she noted that pat ient was coughing producing mucus. She also noted that he was altered and not following command. On my encounter patient is alert oriented x3, pleasant and cooperative with physical examination, denies any fever, chills, nausea, vomiting, diarrhea, constipation or any urinary symptoms. In ED he was found to have elevated troponins, lactic acid, potassium, UA positive for leukocyte esterase and nitrites. Diagnosed with sepsis possibly source UTI and hospitalist consulted for admission. 01/25/2019. On 01/24/2019 around 6 PM troponin was found to have trended up to 7.5, still patient no chest pain, Dr. Hinkle performance tester was contacted immediately who suggested to talk to the patient and see if he would like to be transferred or can be started on heparin drip and aspirin until his sepsis has been treated and kidney has recovered and then he will have a stress test done here and based on the finding he will either be transferred off for new PCI or LHC here. Patient and his who is at the bedside both agreed to stay here and be started on heparin drip and treat his underlying sepsis and BLAKE and wait for a stress test. This morning patient is alert oriented x4 cooperative with physical examination, denies any chest pain, complaining of swelling, denies any fever, shortness of breath, chest pain, nausea, vomiting, diarrhea, constipation. Reason For Visit: SEPSIS, UTI Physical Exam Vital Signs: Temp Pulse Resp BP Pulse Ox 97.8 F 90 24 H 130/73 H 100 01/25/19 07:45 01/25/19 07:45 01/25/19 07:45 01/25/19 07:45 01/25/19 07:45 Intake & Output 01/24/19 01/25/19 01/26/19 06:59 06:59 06:59 Intake Total 2243 Output Total 1820 Balance 423 Weight 79.3 kg General appearance: PRESENT: no acute distress, well-developed, well-nourished Head exam: PRESENT: atraumatic, normocephalic Neck exam: ABSENT: carotid bruit, JVD, lymphadenopathy, thyromegaly Respiratory exam: PRESENT: clear to auscultation [place]. ABSENT: rales, rhonchi, wheezes Cardiovascular exam: PRESENT: RRR. ABSENT: diastolic murmur, rubs, systolic murmur GI/Abdominal exam: PRESENT: normal bowel sounds, soft. ABSENT: distended, guarding, mass, organolmegaly, rebound, tenderness Neurological exam: PRESENT: alert, awake, oriented to person, oriented to place, oriented to time, oriented to situation, CN II-XII grossly intact. ABSENT: motor sensory deficit Results Laboratory Results: 01/25/19 04:02 01/25/19 04:02 01/24/19 01/24/19 01/24/19 11:50 15:59 17:26 WBC RBC Hgb Hct MCV MCH MCHC RDW Plt Count Seg Neutrophils % Lymphocytes % Monocytes % Eosinophils % Basophils % Absolute Neutrophils Absolute Lymphocytes Absolute Monocytes Absolute Eosinophils Absolute Basophils Sodium Potassium Chloride Carbon Dioxide Anion Gap BUN Creatinine Est GFR ( Amer) Est GFR (Non-Af Amer) Glucose Lactic Acid 2.4 H 1.8 1.6 Calcium Magnesium 01/25/19 01/25/19 04:02 04:02 WBC 12.6 H RBC 3.28 L Hgb 10.6 L Hct 31.4 L MCV 96 MCH 32.3 MCHC 33.7 RDW 13.9 Plt Count 286 Seg Neutrophils % 78.6 H Lymphocytes % 11.2 L Monocytes % 9.9 Eosinophils % 0.0 Basophils % 0.3 Absolute Neutrophils 9.9 H Absolute Lymphocytes 1.4 Absolute Monocytes 1.3 Absolute Eosinophils 0.0 Absolute Basophils 0.0 Sodium 133.5 L Potassium 4.5 Chloride 100 Carbon Dioxide 25 Anion Gap 9 BUN 18 Creatinine 1.08 Est GFR ( Amer) > 60 Est GFR (Non-Af Amer) > 60 Glucose 192 H Lactic Acid Calcium 8.3 L Magnesium 1.8 01/24/19 01/24/19 01/24/19 07:22 07:22 17:26 Creatine Kinase 313 H CK-MB (CK-2) 12.00 H Troponin I 2.430 7.750 01/25/19 00:49 Creatine Kinase CK-MB (CK-2) Troponin I 7.600 Impressions: Chest X-Ray 01/24/19 07:56 IMPRESSION: No acute findings Assessment and Plan - Diagnosis (1) Sepsis Qualifiers: Sepsis type: sepsis due to unspecified organism Qualified Code(s): A41.9 - Sepsis, unspecified organism Is this a current diagnosis for this admission?: Yes Plan: Improving. Vitals WNL. 01/25/2019. SBP [id number], T-max 97.8, pulse 90s, RR 1624, SPO2 100% on 2 L NC. WBC 12.6, hemoglobin 10.6, platelets 286, sodium 133, potassium 4.5, creatinine 1.08. Lactic acid 1.6. On admission evidenced by hypotension, AMS, elevated lactic acid, BLAKE, elevated troponins, leukocytosis. Likely source UTI. Culture positive for gram negative rods. Pending sensitivity. Day 2 IV antibiotics. Day 1 cefepime. Day 1 day of levofloxacin. Continue empiric broad-spectrum IV antibiotics, volume resuscitation, admit to IMCU. Follow-up blood and urine culture. (2) Elevated troponin Is this a current diagnosis for this admission?: Yes Plan: Denies any anginal symptoms. Troponin 2.4, 7.7, 7.6 respectively. Likely NSTEMI type II due to underlying sepsis by demand mismatch NSTEMI type I. Continue antiplatelets, BEAU, heparin drip, beta-blockers, statins. Follow cardiology recommendation. Notes. On 01/24/2019 around 6 PM troponin was found to have trended up to 7.5, still patient no chest pain, Dr. Hinkle performance tester was contacted immediately who suggested to talk to the patient and see if he would like to be transferred or can be started on heparin drip and aspirin until his sepsis has been treated and kidney has recovered and then he will have a stress test done here and based on the finding he will either be transferred off for new PCI or LHC here. I talked the patient and who is at the bedside they both agreed to stay here and get treated for his sepsis and pursue left heart cath. Patient was also seen by Dr. Hinkle on 01/25/2020 and agreed to stay. Per patient and his who is in the room his aspirin and Plavix were both stopped by his performance tester due to bleeding caused by complication of radiation to the prostate for his underlying prostate cancer. His BEAU and beta-blockers were also held due to hypotension. (3) CAD (coronary artery disease) Qualifiers: Coronary Disease-Associated Artery/Lesion type: bypass graft, autologous artery Associated angina: without angina Qualified Code(s): I25.810 - Atherosclerosis of coronary artery bypass graft(s) without angina pectoris Is this a current diagnosis for this admission?: Yes Plan: History of CABG. Denies any anginal symptoms. Continue antiplatelets, BEAU, heparin drip, beta-blockers, statins. Cardiology following. (4) UTI (urinary tract infection) Qualifiers: Urinary tract infection type: catheter-associated UTI Indwelling urinary catheter type: unspecified Encounter type: initial encounter Qualified Code(s): T83.511A - Infection and inflammatory reaction due to indwelling urethral catheter, initial encounter; N39.0 - Urinary tract infection, site not specified Is this a current diagnosis for this admission?: Yes Plan: As per #1. (5) Dyslipidemia Is this a current diagnosis for this admission?: Yes Plan: Start home meds. Diet and lifestyle modification recommended. (6) Gastroesophageal reflux disease Is this a current diagnosis for this admission?: Yes Plan: Restart home meds. (7) HTN (hypertension) Is this a current diagnosis for this admission?: Yes Plan: Start home meds. Adjust dosage as needed. PRN IV hydralazine. Outpatient PCP follow-up. (8) Suprapubic catheter Is this a current diagnosis for this admission?: Yes Plan: Catheter care. Replace cath. Outpatient urology follow-up. (9) Type 2 diabetes mellitus Is this a current diagnosis for this admission?: Yes Plan: Well-controlled. 2017 A1c 6.9% Diabetic diet, sliding scale insulin, long-acting insulin, pre-meal insulin, Accu-Chek, hypoglycemic protocol. Adjust dosage as needed. Restart home meds upon discharge. Outpatient PCP follow-up. (10) Hyperkalemia Is this a current diagnosis for this admission?: Yes Plan: Resolved. Potassium WNL. Hyperkalemia protocol. BMP tomorrow. Admit to telemetry. (11) Acute renal failure Qualifiers: Acute renal failure type: unspecified Qualified Code(s): N17.9 - Acute kidney failure, unspecified Is this a current diagnosis for this admission?: Yes Plan: Resolved. Creatinine WNL. Hx of CKD. Prerenal. Most likely due to underlying sepsis. Baseline creatinine 1.5. Cautious diuresis guided by volume status, avoid nephrotoxic meds. BMP tomorrow.
[2019-01-25] MEDS ORDERED: LISINOPRIL 5 MG TABLET PO SCH (12:00)
[2019-01-25] MEDS: CEFEPIME HCL 2 GM in DEXTROSE 5%-WATER 50 ML IV SCH (12:12)
[2019-01-25] MEDS: HEPARIN SODIUM,PORCINE/D5W 25,000 UNIT/250 ML RTUINJ IV PRN (16:02)
[2019-01-25] MEDS: RINGERS SOLUTION,LACTATED 1,000 ML IV PRN (16:02)
[2019-01-25] MEDS: LISINOPRIL 5 MG TABLET PO SCH (21:43)
[2019-01-25] MEDS: ATORVASTATIN CALCIUM 40 MG TABLET PO SCH (21:43)
[2019-01-25] MEDS: METOPROLOL SUCCINATE 50 MG TAB.SR.24H PO SCH (21:43)
[2019-01-25] MEDS ORDERED: METOPROLOL SUCCINATE 25 MG TAB.SR.24H PO SCH (22:00)
--- NOTE | 2019-01-25 22:20 | Progress Note ---
Provider Note Provider Note: CARDIOLOGY PROGRESS NOTE by Dr. Joanne Kithcen on 01/25/2019. SUBJECTIVE: The patient today's awake alert and oriented x3. The patient denies any chest pain or discomfort. There is no shortness of breath. There is no PND or orthopnea. There is no bleeding on heparin. There is no TIA CVA symptoms. No atrial or ventricular arrhythmia seen. PHYSICAL EXAMINATION: The patient is well-built and well-nourished. At present in no acute distress. Selected Entries 01/25/19 12:22 Temperature 98.4 F Temperature Oral Source Pulse Rate 89 Respiratory 16 Rate Blood Pressure 135/76 H Blood Pressure 95 Mean BP Location Right Arm BP Position Supine O2 Sat by Pulse 100 Oximetry HEAD: Is atraumatic normocephalic. EYES: Pupils are equal round regular reactive light accommodation. NOSE: Nasal mucous membranes are intact. External canals are clear. MOUTH: Mucous membranes of mouth are moist. Tongue is moist. THROAT: There is no redness of the oropharynx. There is no exudates. SKIN: There is no skin rashes or skin lesions. There is no ecchymosis or petechiae. There is no skin lesions or rashes. NECK: Is supple. There is no JVD. Carotids are equal there is no bruits. There is no accessory muscle respiration use. TRACHEA is central. LUNGS: Is clear to auscultation percussion. There is no rhonchi rales or wheezing. HEART: S1-S2 is heard. There is no S3 gallop. There is no gallop the systolic murmur left sternal border and the apex there is no rub. ABDOMEN: There is no hepatosplenomegaly. Bowel sounds are well heard. There is supra a week cystostomy catheter in situ. The area/site of insertion looks clean without infection. EXTREMITIES: Fe morals are diminished. There is no femoral bruits. Leg pulses are diminished. There is no pedal edema. There is no DVT or cellulitis. There is no calf tenderness. COSMETIC ASSEMBLER: Patient is conscious awake alert oriented x3 with no focal deficit. PSYCHIATRIC: Patient judgment insight are intact his affect is normal. 01/24/19 08:47 Blood Culture - Preliminary Blood NO GROWTH IN 24 HOURS 01/24/19 08:35 Blood Culture - Preliminary Blood Gram Negative Rods 01/24/19 08:00 Urine Culture - Preliminary Catheterized Urine Gram Negative Rods Gram Negative Rods#2 Abnormal - 24 hr 01/25/19 01/25/19 01/25/19 04:02 04:02 04:02 WBC 12.6 H RBC 3.28 L Hgb 10.6 L Hct 31.4 L Seg Neutrophils % 78.6 H Lymphocytes % 11.2 L Absolute Neutrophils 9.9 H APTT 45.3 H Sodium 133.5 L Glucose 192 H POC Glucose Calcium 8.3 L 01/25/19 01/25/19 01/25/19 07:46 12:16 12:22 WBC RBC Hgb Hct Seg Neutrophils % Lymphocytes % Absolute Neutrophils APTT 84.8 H Sodium Glucose POC Glucose 171 H 180 H Calcium 01/25/19 01/25/19 16:54 21:17 WBC RBC Hgb Hct Seg Neutrophils % Lymphocytes % Absolute Neutrophils APTT Sodium Glucose POC Glucose 165 H 161 H Calcium Chest X-Ray 01/24/19 07:56 IMPRESSION: No acute findings IMPRESSION/RECOMMENDATION: 1. Non-ST elevation NV: Patient with known coronary artery disease. Troponin has plateaued. The patient has no further chest pain. In fact she did not even have chest pain when he came in. But the patient has a coronary anatomy when he has a vessel that cannot be stented or bypassed. Hence continue the patient on IV heparin at full dose for 48 hours. Continue aspirin and statin. Will add oral nitrates, and will increase the patient's metoprolol to 50 mg. Continue patient Ranexa. Will recheck the patient EKG and troponin in the morning. 2. Sepsis secondary to gram-negative urinary tract infection. Note the patient's lactic acid level has normalized. Continue antibiotics. Await sensitivity studies. 3. Coronary artery disease: Note patient anti-CAD medications are being maximized. 4. Hypertension: Well controlled. Continue current medications. 5. Diabetes mellitus: Continue antidiabetic medication and serial Accu-Cheks. 6. Hyperlipidemia: Continue statin. 7. Confusion and altered mental status on admission most likely secondary to metabolic effects of sepsis. This is resolved. No evidence of TIA or CVA. 8. Chronic kidney disease stage III: Follow renal function. Avoid nephrotoxic drugs. 9. History of prostate cancer: Status post suprapubic cystostomy. MEDICATIONS reviewed. Medications adjusted. Management plan discussed with hospitalist on the case. Medical decision making is of high complexity. 40 minutes spent on this patient more than 50% of time spent in direct patient care. Will follow.
[2019-01-26] MEDS: GABAPENTIN 300 MG CAPSULE PO SCH ×4 (00:27→17:22)
[2019-01-26] MEDS: CEFEPIME HCL 2 GM in DEXTROSE 5%-WATER 50 ML IV SCH ×2 (00:29→11:45)
[2019-01-26] MEDS: ACETAMINOPHEN 325 MG TABLET PO PRN (03:31)
[2019-01-26] MEDS: RINGERS SOLUTION,LACTATED 1,000 ML IV PRN (05:04)
[2019-01-26 06:37] LABS: ABSOLUTE LYMPHOCYTES (AUTO) 1.3 10^3/uL (0.5-4.7); ABSOLUTE MONOCYTES (AUTO) 1.1 10^3/uL (0.1-1.4); ABSOLUTE NEUT (AUTO) 10.1 10^3/uL (1.7-8.2); BASOPHILS % (AUTO) 0.1 % (0-2); EOSINOPHILS % (AUTO) 0.1 % (0-6); HEMATOCRIT 33.8 % (37.9-51.0); HEMOGLOBIN 11.3 g/dL (13.5-17.0); LYMPHOCYTES % (AUTO) 10.4 % (13-45); MEAN CORPUSCULAR HEMOGLOBIN 31.8 pg (27.0-33.4); MEAN CORPUSCULAR HGB CONC 33.5 g/dL (32.0-36.0); MEAN CORPUSCULAR VOLUME 95 fl (80-97); PLATELET COUNT 284 10^3/uL (150-450); RED BLOOD COUNT 3.56 10^6/uL (4.35-5.55); RED CELL DISTRIBUTION WIDTH 13.9 % (11.5-14.0); SEGMENTED NEUTROPHILS % (AUTO) 80.4 % (42-78); TOTAL CELLS COUNTED % (AUTO) 100 %; WHITE BLOOD COUNT 12.5 10^3/uL (4.0-10.5)
[2019-01-26 06:51] LABS: ANION GAP 7 (5-19); BLOOD UREA NITROGEN 20 mg/dL (7-20); CALCIUM 8.5 mg/dL (8.4-10.2); CARBON DIOXIDE 25 mmol/L (22-30); CHLORIDE 99 mmol/L (98-107); GLUCOSE 209 mg/dL (75-110); POTASSIUM 4.4 mmol/L (3.6-5.0)
[2019-01-26] MEDS: FAMOTIDINE 20 MG TABLET PO SCH ×2 (09:30→21:29)
[2019-01-26] MEDS: RANOLAZINE 500 MG TAB.SR.12H PO SCH ×2 (09:30→21:29)
[2019-01-26] MEDS: ISOSORBIDE MONONITRATE 30 MG TAB.ER.24H PO SCH (09:30)
[2019-01-26] MEDS: METOPROLOL SUCCINATE 50 MG TAB.SR.24H PO SCH ×2 (09:31→21:29)
[2019-01-26] MEDS: CHOLECALCIFEROL (D3) 1,000 UNIT (25 MCG) TABLET PO SCH (09:31)
[2019-01-26] MEDS: FENOFIBRATE NANOCRYSTALLIZED 145 MG TABLET PO SCH (09:31)
[2019-01-26] MEDS: LISINOPRIL 5 MG TABLET PO SCH ×2 (09:32→21:30)
[2019-01-26] MEDS: ESCITALOPRAM OXALATE 10 MG TABLET PO SCH (09:32)
[2019-01-26] MEDS: DOCUSATE SODIUM 100 MG CAPSULE PO SCH ×2 (09:34→17:23)
[2019-01-26] MEDS: HEPARIN SODIUM,PORCINE/D5W 25,000 UNIT/250 ML RTUINJ IV PRN (11:53)
[2019-01-26] MEDS ORDERED: DEXTROSE 40% GEL 15 GM TUBE PO PRN ×2 (11:59)
[2019-01-26] MEDS ORDERED: GLUCAGON,HUMAN RECOMB 1 MG INJ IM PRN (11:59)
[2019-01-26] MEDS ORDERED: DEXTROSE 50%-WATER 25 GM/50 ML DISP.SYRIN IV PRN ×2 (11:59)
--- NOTE | 2019-01-26 12:05 | PDOC PROGRESS REPORT ---
Subjective Progress Note for:: 01/26/19 Subjective:: PAOLA RODRIGUEZ is a 78 year old male past medical history of COPD, TIA, diabetes type 2, GERD, depression, CAD status post CABG, prostate cancer status post chemoradiation, not a surgical candidate, complicated by urinary retention, suprapubic catheter in place on the right side, recurrent UTI. Patient was brought to ED by EMS after noticed that he was altered. As per EMS report patient had a fever, was alert to verbal command but was mumbling. In route to ED EMS recorded temperature of 100.6. As per who is at the bedside she thinks that the patient was overheated yesterday when he was working with his tractor. This morning she noted that pat ient was coughing producing mucus. She also noted that he was altered and not following command. On my encounter patient is alert oriented x3, pleasant and cooperative with physical examination, denies any fever, chills, nausea, vomiting, diarrhea, constipation or any urinary symptoms. In ED he was found to have elevated troponins, lactic acid, potassium, UA positive for leukocyte esterase and nitrites. Diagnosed with sepsis possibly source UTI and hospitalist consulted for admission. 01/25/2019. On 01/24/2019 around 6 PM troponin was found to have trended up to 7.5, still patient no chest pain, Dr. Hinkle concreter was contacted immediately who suggested to talk to the patient and see if he would like to be transferred or can be started on heparin drip and aspirin until his sepsis has been treated and kidney has recovered and then he will have a stress test done here and based on the finding he will either be transferred off for new PCI or C here. Patient and his who is at the bedside both agreed to stay here and be started on heparin drip and treat his underlying sepsis and BLAKE and wait for a stress test. This morning patient is alert oriented x4 cooperative with physical examination, denies any chest pain, complaining of swelling, denies any fever, shortness of breath, chest pain, nausea, vomiting, diarrhea, constipation. 01/26/2019. No acute events overnight. Complaining of feeling weak, does not have an appetite, otherwise denies any fever, chills, nausea, vomiting, diarrhea, constipation, chest pain or any shortness of breath. Reason For Visit: SEPSIS, UTI Physical Exam Vital Signs: Temp Pulse Resp BP Pulse Ox 97.4 F 78 20 142/72 H 100 01/26/19 07:49 01/26/19 07:49 01/26/19 07:49 01/26/19 07:49 01/26/19 07:49 Intake & Output 01/25/19 01/26/19 01/27/19 06:59 06:59 06:59 Intake Total 2243 2694 250 Output Total 1820 2100 Balance 423 594 250 Weight 79.3 kg 83 kg General appearance: PRESENT: no acute distress, well-developed, well-nourished Head exam: PRESENT: atraumatic, normocephalic Respiratory exam: PRESENT: clear to auscultation [place]. ABSENT: rales, rhonchi, wheezes GI/Abdominal exam: PRESENT: normal bowel sounds, soft. ABSENT: distended, guarding, mass, organolmegaly, rebound, tenderness Extremities exam: PRESENT: full ROM. ABSENT: calf tenderness, clubbing, pedal e terra Neurological exam: PRESENT: alert, awake, oriented to person, oriented to place, oriented to time, oriented to situation, CN II-XII grossly intact. ABSENT: motor sensory deficit Results Laboratory Results: 01/26/19 06:23 01/26/19 06:23 01/26/19 01/26/19 06:23 06:23 WBC 12.5 H RBC 3.56 L Hgb 11.3 L Hct 33.8 L MCV 95 MCH 31.8 MCHC 33.5 RDW 13.9 Plt Count 284 Seg Neutrophils % 80.4 H Lymphocytes % 10.4 L Monocytes % 9.0 Eosinophils % 0.1 Basophils % 0.1 Absolute Neutrophils 10.1 H Absolute Lymphocytes 1.3 Absolute Monocytes 1.1 Absolute Eosinophils 0.0 Absolute Basophils 0.0 Sodium 131.0 L Potassium 4.4 Chloride 99 Carbon Dioxide 25 Anion Gap 7 BUN 20 Creatinine 0.89 Est GFR ( Amer) > 60 Est GFR (Non-Af Amer) > 60 Glucose 209 H Calcium 8.5 Magnesium 1.9 01/24/19 08:35 Blood Blood Culture - Final Klebsiella Oxytoca 01/24/19 01/24/19 01/24/19 07:22 07:22 17:26 Creatine Kinase 313 H CK-MB (CK-2) 12.00 H Troponin I 2.430 7.750 01/25/19 01/25/19 00:49 12:16 Creatine Kinase CK-MB (CK-2) Troponin I 7.600 6.140 Impressions: Chest X-Ray 01/24/19 07:56 IMPRESSION: No acute findings Assessment and Plan - Diagnosis (1) Sepsis Qualifiers: Sepsis type: sepsis due to unspecified organism Qualified Code(s): A41.9 - Sepsis, unspecified organism Is this a current diagnosis for this admission?: Yes Plan: Improving. Vitals WNL. Urine and blood culture both growing Klebsiella oxytoca pansensitive. 01/25/2019. SBP 425662, T-max 97.8, pulse 90s, RR 1624, SPO2 100% on 2 L NC. WBC 12.6, hemoglobin 10.6, platelets 286, sodium 133, potassium 4.5, creatinine 1.08. Lactic acid 1.6. On admission evidenced by hypotension, AMS, elevated lactic acid, BLAKE, elevated troponins, leukocytosis. Likely source UTI. Culture positive for gram negative rods. Pending sensitivity. Day 3 IV antibiotics. Day 2 cefepime. Day 1 day of levofloxacin. Continue empiric broad-spectrum IV antibiotics, volume resuscitation, admit to IMCU. Blood culture growing Klebsiella oxytoca. Urine culture 1/2 Klebsiella oxytoca. Gram-negative rods pending sensitivity. Follow-up blood and urine culture. (2) Elevated troponin Is this a current diagnosis for this admission?: Yes Plan: Denies any anginal symptoms. Troponin 2.4, 7.7, 7.6, 6.14 respectively. Likely NSTEMI type II due to underlying sepsis by demand mismatch or NSTEMI type I. Continue antiplatelets, BEAU, heparin drip, beta-blockers, statins. Cardiology following. Recommendations noted. Notes. On 01/24/2019 around 6 PM troponin was found to have trended up to 7.5, still patient no chest pain, Dr. Hinkle concreter was contacted immediately who suggested to talk to the patient and see if he would like to be transferred or can be started on heparin drip and aspirin until his sepsis has been treated and kidney has recovered and then he will have a stress test done here and based on the finding he will either be transferred off for new PCI or C here. I talked the patient and who is at the bedside they both agreed to stay here and get treated for his sepsis and pursue left heart cath. Patient was also seen by Dr. Hinkle on 01/25/2020 and agreed to stay. Per patient and his who is in the room his aspirin and Plavix were both stopped by his concreter due to bleeding caused by complication of radiation to the prostate for his underlying prostate cancer. His BEAU and beta-blockers were also held due to hypotension. (3) CAD (coronary artery disease) Qualifiers: Coronary Disease-Associated Artery/Lesion type: bypass graft, autologous artery Associated angina: without angina Qualified Code(s): I25.810 - Atherosclerosis of coronary artery bypass graft(s) without angina pectoris Is this a current diagnosis for this admission?: Yes Plan: History of CABG. Denies any anginal symptoms. Continue antiplatelets, BEAU, heparin drip, beta-blockers, statins. Cardiology following. (4) UTI (urinary tract infection) Qualifiers: Urinary tract infection type: catheter-associated UTI Indwelling urinary catheter type: unspecified Encounter type: initial encounter Qualified Code(s): T83.511A - Infection and inflammatory reaction due to indwelling urethral catheter, initial encounter; N39.0 - Urinary tract infection, site not specified Is this a current diagnosis for this admission?: Yes Plan: As per #1. (5) Dyslipidemia Is this a current diagnosis for this admission?: Yes Plan: Start home meds. Diet and lifestyle modification recommended. (6) Gastroesophageal reflux disease Is this a current diagnosis for this admission?: Yes Plan: Restart home meds. (7) HTN (hypertension) Is this a current diagnosis for this admission?: Yes Plan: Start home meds. Adjust dosage as needed. PRN IV hydralazine. Outpatient PCP follow-up. (8) Suprapubic catheter Is this a current diagnosis for this admission?: Yes Plan: Catheter care. Replace cath. Outpatient urology follow-up. (9) Type 2 diabetes mellitus Is this a current diagnosis for this admission?: Yes Plan: Well-controlled. 2017 A1c 6.9% Diabetic diet, sliding scale insulin, long-acting insulin, pre-meal insulin, Accu-Chek, hypoglycemic protocol. Adjust dosage as needed. Restart home meds upon discharge. Outpatient PCP follow-up. (10) Hyperkalemia Is this a current diagnosis for this admission?: Yes Plan: Resolved. Potassium WNL. Hyperkalemia protocol. BMP tomorrow. Admit to telemetry. (11) Acute renal failure Qualifiers: Acute renal failure type: unspecified Qualified Code(s): N17.9 - Acute kidney failure, unspecified Is this a current diagnosis for this admission?: Yes Plan: Resolved. Creatinine WNL. Hx of CKD. Prerenal. Most likely due to underlying sepsis. Baseline creatinine 1.5. Cautious diuresis guided by volume status, avoid nephrotoxic meds. BMP t omorrow.
[2019-01-26] MEDS ORDERED: INSULIN GLARGINE,HUM.REC.ANLOG 1,000 UNIT/10 ML VIAL SUBCUT SCH (13:00)
[2019-01-26] MEDS: INSULIN REG, HUMAN 100 UNIT/ML 3 ML VIAL (PYX) SUBCUT SCH ×3 (14:12→21:21)
[2019-01-26] MEDS: INSULIN GLARGINE,HUM.REC.ANLOG 1,000 UNIT/10 ML VIAL SUBCUT SCH (21:22)
[2019-01-26] MEDS: ATORVASTATIN CALCIUM 40 MG TABLET PO SCH (21:29)
[2019-01-27] MEDS: GABAPENTIN 300 MG CAPSULE PO SCH ×4 (00:47→21:03)
[2019-01-27] MEDS: CEFEPIME HCL 2 GM in DEXTROSE 5%-WATER 50 ML IV SCH (00:47)
[2019-01-27 05:09] LABS: ABSOLUTE BASOPHILS # (AUTO) 0.1 10^3/uL (0.0-0.2); ABSOLUTE LYMPHOCYTES (AUTO) 1.4 10^3/uL (0.5-4.7); ABSOLUTE MONOCYTES (AUTO) 0.9 10^3/uL (0.1-1.4); ABSOLUTE NEUT (AUTO) 10.6 10^3/uL (1.7-8.2); BASOPHILS % (AUTO) 0.7 % (0-2); EOSINOPHILS % (AUTO) 0.1 % (0-6); HEMATOCRIT 33.9 % (37.9-51.0); HEMOGLOBIN 11.6 g/dL (13.5-17.0); LYMPHOCYTES % (AUTO) 10.6 % (13-45); MEAN CORPUSCULAR HEMOGLOBIN 32.2 pg (27.0-33.4); MEAN CORPUSCULAR HGB CONC 34.2 g/dL (32.0-36.0); MEAN CORPUSCULAR VOLUME 94 fl (80-97); MONOCYTES % (AUTO) 6.9 % (3-13); PLATELET COUNT 275 10^3/uL (150-450); RED CELL DISTRIBUTION WIDTH 14.1 % (11.5-14.0); SEGMENTED NEUTROPHILS % (AUTO) 81.7 % (42-78); TOTAL CELLS COUNTED % (AUTO) 100 %
[2019-01-27 07:21] LABS: ALANINE AMINOTRANSFERASE 190 U/L (21-72); ALBUMIN 2.8 g/dL (3.5-5.0); ALKALINE PHOSPHATASE 72 U/L (38-126); ANION GAP 9 (5-19); ASPARTATE AMINO TRANSFERASE 420 U/L (17-59); BILIRUBIN,TOTAL 1.4 mg/dL (0.2-1.3); BLOOD UREA NITROGEN 23 mg/dL (7-20); CARBON DIOXIDE 25 mmol/L (22-30); CHLORIDE 99 mmol/L (98-107); GLUCOSE 136 mg/dL (75-110); POTASSIUM 4.3 mmol/L (3.6-5.0); TOTAL PROTEIN 6.3 g/dL (6.3-8.2)
[2019-01-27] MEDS: HEPARIN SODIUM,PORCINE/D5W 25,000 UNIT/250 ML RTUINJ IV PRN (07:54)
[2019-01-27] MEDS: INSULIN REG, HUMAN 100 UNIT/ML 3 ML VIAL (PYX) SUBCUT SCH ×4 (08:54→22:14)
[2019-01-27] MEDS ORDERED: ONDANSETRON HCL INJ/PF 4 MG/2 ML SDV IV PRN (09:00)
[2019-01-27] MEDS: FENOFIBRATE NANOCRYSTALLIZED 145 MG TABLET PO SCH (09:36)
[2019-01-27] MEDS: METOPROLOL SUCCINATE 50 MG TAB.SR.24H PO SCH ×2 (09:37→21:05)
[2019-01-27] MEDS: DOCUSATE SODIUM 100 MG CAPSULE PO SCH ×2 (09:37→18:26)
[2019-01-27] MEDS: ESCITALOPRAM OXALATE 10 MG TABLET PO SCH (09:37)
[2019-01-27] MEDS: CHOLECALCIFEROL (D3) 1,000 UNIT (25 MCG) TABLET PO SCH (09:37)
[2019-01-27] MEDS: FAMOTIDINE 20 MG TABLET PO SCH ×2 (09:38→21:05)
[2019-01-27] MEDS: RANOLAZINE 500 MG TAB.SR.12H PO SCH ×2 (09:38→21:05)
[2019-01-27] MEDS: LISINOPRIL 5 MG TABLET PO SCH ×2 (09:38→21:05)
[2019-01-27] MEDS: ISOSORBIDE MONONITRATE 30 MG TAB.ER.24H PO SCH (09:38)
--- NOTE | 2019-01-27 10:43 | PDOC PROGRESS REPORT ---
Subjective Progress Note for:: 01/27/19 Subjective:: PAOLA RODRIGUEZ is a 78 year old male past medical history of COPD, TIA, diabetes type 2, GERD, depression, CAD status post CABG, prostate cancer status post chemoradiation, not a surgical candidate, complicated by urinary retention, suprapubic catheter in place on the right side, recurrent UTI. Patient was brought to ED by EMS after noticed that he was altered. As per EMS report patient had a fever, was alert to verbal command but was mumbling. In route to ED EMS recorded temperature of 100.6. As per who is at the bedside she thinks that the patient was overheated yesterday when he was working with his tractor. This morning she noted that pat ient was coughing producing mucus. She also noted that he was altered and not following command. On my encounter patient is alert oriented x3, pleasant and cooperative with physical examination, denies any fever, chills, nausea, vomiting, diarrhea, constipation or any urinary symptoms. In ED he was found to have elevated troponins, lactic acid, potassium, UA positive for leukocyte esterase and nitrites. Diagnosed with sepsis possibly source UTI and hospitalist consulted for admission. 01/25/2019. On 01/24/2019 around 6 PM troponin was found to have trended up to 7.5, still patient no chest pain, Dr. Hinkle client retention specialist was contacted immediately who suggested to talk to the patient and see if he would like to be transferred or can be started on heparin drip and aspirin until his sepsis has been treated and kidney has recovered and then he will have a stress test done here and based on the finding he will either be transferred off for new PCI or LHC here. Patient and his who is at the bedside both agreed to stay here and be started on heparin drip and treat his underlying sepsis and BLAKE and wait for a stress test. This morning patient is alert oriented x4 cooperative with physical examination, denies any chest pain, complaining of swelling, denies any fever, shortness of breath, chest pain, nausea, vomiting, diarrhea, constipation. 01/26/2019. No acute events overnight. Complaining of feeling weak, does not have an appetite, otherwise denies any fever, chills, nausea, vomiting, diarrhea, constipation, chest pain or any shortness of breath. 01/27/2019. No acute events overnight. Patient complaining of low appetite otherwise feeling better than yesterday. Denies any fever, chills, nausea, vomiting, chest pain or any urinary symptoms. Urine culture growing Klebsiella oxytoca and Procidentia Rettgeri both resistant to penicillins. Blood culture growing Klebsiella oxytoca resistant only to ampicillin. Reason For Visit: SEPSIS, UTI Physical Exam Vital Signs: Temp Pulse Resp BP Pulse Ox 98.6 F 78 20 149/73 H 98 01/27/19 07:34 01/27/19 07:34 01/27/19 07:34 01/27/19 07:34 01/27/19 07:34 Intake & Output 01/26/19 01/27/19 01/28/19 06:59 06:59 06:59 Intake Total 2694 790 250 Output Total 2100 1150 Balance 594 -360 250 Weight 83 kg 83.8 kg General appearance: PRESENT: no acute distress, well-developed, well-nourished Head exam: PRESENT: atraumatic, normocephalic Respiratory exam: PRESENT: clear to auscultation [place]. ABSENT: rales, rhonchi, wheezes Cardiovascular exam: PRESENT: RRR. ABSENT: diastolic murmur, rubs, systolic murmur GI/Abdominal exam: PRESENT: normal bowel sounds, soft. ABSENT: distended, guarding, mass, organolmegaly, rebound, tenderness Gentrourinary exam: PRESENT: other - Suprapubic catheter in place. Neurological exam: PRESENT: alert, awake, oriented to person, oriented to place, oriented to time, oriented to situation, CN II-XII grossly intact. ABSENT: motor sensory deficit Results Laboratory Results: 01/27/19 04:26 01/27/19 06:39 01/27/19 01/27/19 01/27/19 04:26 04:26 06:39 WBC 13.0 H RBC 3.60 L Hgb 11.6 L Hct 33.9 L MCV 94 MCH 32.2 MCHC 34.2 RDW 14.1 H Plt Count 275 Seg Neutrophils % 81.7 H Lymphocytes % 10.6 L Monocytes % 6.9 Eosinophils % 0.1 Basophils % 0.7 Absolute Neutrophils 10.6 H Absolute Lymphocytes 1.4 Absolute Monocytes 0.9 Absolute Eosinophils 0.0 Absolute Basophils 0.1 Sodium Cancelled 132.7 L Potassium Cancelled 4.3 Chloride Cancelled 99 Carbon Dioxide Cancelled 25 Anion Gap Cancelled 9 BUN Cancelled 23 H Creatinine Cancelled 0.87 Est GFR ( Amer) Cancelled > 60 Est GFR (Non-Af Amer) Cancelled > 60 Glucose Cancelled 136 H Calcium Cancelled 8.0 L Magnesium Cancelled 2.0 Total Bilirubin Cancelled 1.4 H AST Cancelled 420 H ALT Cancelled 190 H Alkaline Phosphatase Cancelled 72 Total Protein Cancelled 6.3 Albumin Cancelled 2.8 L 01/24/19 08:00 Catheterized Urine Urine Culture - Final Providencia Rettgeri Klebsiella Oxytoca 01/24/19 08:35 Blood Blood Culture - Final Klebsiella Oxytoca 01/24/19 01/24/19 01/24/19 07:22 07:22 17:26 Creatine Kinase 313 H CK-MB (CK-2) 12.00 H Troponin I 2.430 7.750 01/25/19 01/25/19 01/26/19 00:49 12:16 06:23 Creatine Kinase CK-MB (CK-2) Troponin I 7.600 6.140 3.500 Impressions: Chest X-Ray 01/24/19 07:56 IMPRESSION: No acute findings Assessment and Plan - Diagnosis (1) Sepsis Qualifiers: Sepsis type: sepsis due to unspecified organism Qualified Code(s): A41.9 - Sepsis, unspecified organism Is this a current diagnosis for this admission?: Yes Plan: Resolved. Vitals WNL. Urine culture growing Klebsiella oxytoca and Procidentia Rettgeri both resistant to penicillins. Blood culture growing Klebsiella oxytoca resistant only to ampicillin. On admission evidenced by hypotension, AMS, elevated lactic acid, BLAKE, elevated troponins, leukocytosis. Likely source UTI. Day 4 IV antibiotics. Received 3 days of IV cefepime. Day 1 levofloxacin. P.o. levofloxacin, continue , continue monitoring vitals. Urine culture growing Klebsiella oxytoca and Procidentia Rettgeri both resistant to penicillins. Blood culture growing Klebsiella oxytoca resistant only to ampicillin. Repeat cultures negative. (2) Elevated troponin Is this a current diagnosis for this admission?: Yes Plan: Denies any anginal symptoms. Troponin 2.4, 7.7, 7.6, 6.14 respectively. Likely NSTEMI type II due to underlying sepsis by demand mismatch or NSTEMI type I. Continue antiplatelets, BEAU, heparin drip, beta-blockers, statins. Cardiology following. Recommendations noted. Notes. On 01/24/2019 around 6 PM troponin was found to have trended up to 7.5, still patient no chest pain, Dr. Hinkle client retention specialist was contacted immediately who suggested to talk to the patient and see if he would like to be transferred or can be started on heparin drip and aspirin until his sepsis has been treated and kidney has recovered and then he will have a stress test done here and based on the finding he will either be transferred off for new PCI or LHC here. I talked the patient and who is at the bedside they both agreed to stay here and get treated for his sepsis and pursue left heart cath. Patient was also seen by Dr. Hinkle on 01/25/2020 and agreed to stay. Per patient and his who is in the room his aspirin and Plavix were both stopped by his client retention specialist due to bleeding caused by complication of radiation to the prostate for his underlying prostate cancer. His BEAU and beta-blockers were also held due to hypotension. (3) CAD (coronary artery disease) Qualifiers: Coronary Disease-Associated Artery/Lesion type: bypass graft, autologous artery Associated angina: without angina Qualified Code(s): I25.810 - Atherosclerosis of coronary artery bypass graft(s) without angina pectoris Is this a current diagnosis for this admission?: Yes Plan: History of CABG. Denies any anginal symptoms. Continue antiplatelets, BEAU, heparin drip, beta-blockers, statins. Cardiology following. (4) UTI (urinary tract infection) Qualifiers: Urinary tract infection type: catheter-associated UTI Indwelling urinary catheter type: unspecified Encounter type: initial encounter Qualified Code(s): T83.511A - Infection and inflammatory reaction due to indwelling urethral catheter, initial encounter; N39.0 - Urinary tract infection, site not specified Is this a current diagnosis for this admission?: Yes Plan: As per #1. (5) Dyslipidemia Is this a current diagnosis for this admission?: Yes Plan: Start home meds. Diet and lifestyle modification recommended. (6) Gastroesophageal reflux disease Is this a current diagnosis for this admission?: Yes Plan: Restart home meds. (7) HTN (hypertension) Is this a current diagnosis for this admission?: Yes Plan: Start home meds. Adjust dosage as needed. PRN IV hydralazine. Outpatient PCP follow-up. (8) Suprapubic catheter Is this a current diagnosis for this admission?: Yes Plan: Catheter care. Patient will need replacement of his suprapubic cath unfortunately no urology's appointment available at [facility]. Patient has establish care with urologist as outpatient. Follow-up with outpatient ur ology. (9) Type 2 diabetes mellitus Is this a current diagnosis for this admission?: Yes Plan: Well-controlled. 2017 A1c 6.9% Diabetic diet, sliding scale insulin, long-acting insulin, pre-meal insulin, Accu-Chek, hypoglycemic protocol. Adjust dosage as needed. Restart home meds upon discharge. Outpatient PCP follow-up. (10) Hyperkalemia Is this a current diagnosis for this admission?: Yes Plan: Resolved. Potassium WNL. Hyperkalemia protocol. BMP tomorrow. Admit to telemetry. (11) Acute renal failure Qualifiers: Acute renal failure type: unspecified Qualified Code(s): N17.9 - Acute kidney failure, unspecified Is this a current diagnosis for this admission?: Yes Plan: Resolved. Creatinine WNL. Hx of CKD. Prerenal. Most likely due to underlying sepsis. Baseline creatinine 1.5. Cautious diuresis guided by volume status, avoid nephrotoxic meds. BMP tomorrow.
[2019-01-27] MEDS ORDERED: MEGESTROL ACETATE SUSP 400 MG/10 ML UDCUP PO ONE ×2 (13:00→19:00)
[2019-01-27] MEDS: LEVOFLOXACIN 750 MG TABLET PO SCH (18:18)
[2019-01-27] MEDS: ATORVASTATIN CALCIUM 40 MG TABLET PO SCH (21:05)
[2019-01-27] MEDS: INSULIN GLARGINE,HUM.REC.ANLOG 1,000 UNIT/10 ML VIAL SUBCUT SCH (21:11)
[2019-01-28] MEDS: HEPARIN SODIUM,PORCINE/D5W 25,000 UNIT/250 ML RTUINJ IV PRN (03:01)
[2019-01-28] MEDS: GABAPENTIN 300 MG CAPSULE PO SCH ×5 (05:33→23:04)
[2019-01-28 08:19] LABS: ANION GAP 7 (5-19); BLOOD UREA NITROGEN 23 mg/dL (7-20); CARBON DIOXIDE 27 mmol/L (22-30); CHLORIDE 101 mmol/L (98-107); GLUCOSE 89 mg/dL (75-110); POTASSIUM 3.8 mmol/L (3.6-5.0)
[2019-01-28 08:47] LABS: HEMATOCRIT 33.8 % (37.9-51.0); HEMOGLOBIN 11.4 g/dL (13.5-17.0); MEAN CORPUSCULAR HGB CONC 33.8 g/dL (32.0-36.0); MEAN CORPUSCULAR VOLUME 95 fl (80-97); PLATELET COUNT 279 10^3/uL (150-450); RED BLOOD COUNT 3.57 10^6/uL (4.35-5.55); RED CELL DISTRIBUTION WIDTH 14.3 % (11.5-14.0); WHITE BLOOD COUNT 13.5 10^3/uL (4.0-10.5)
[2019-01-28 09:14] LABS: ABSOLUTE LYMPHOCYTES# (MANUAL) 3.4 10^3/uL (0.5-4.7); ABSOLUTE MONOCYTES # (MANUAL) 0.7 10^3/uL (0.1-1.4); BASOPHILS % (MANUAL) 0 % (0-2); EOSINOPHILS % (MANUAL) 1 % (0-6); LYMPHOCYTES % (MANUAL) 24 % (13-45); MONOCYTES % (MANUAL) 5 % (3-13); NUCLEATED RED BLOOD CELLS 3 /100 WBC (0); SEGMENTED NEUTROPHILS % (MAN) 69 % (42-78); TOTAL CELLS COUNTED 100
[2019-01-28 09:15] LABS: ANISOCYTOSIS SLIGHT; PLATELET COMMENT ADEQUATE; TOXIC GRANULATION 1+
[2019-01-28] MEDS: INSULIN REG, HUMAN 100 UNIT/ML 3 ML VIAL (PYX) SUBCUT SCH ×4 (10:14→21:37)
[2019-01-28] MEDS: FENOFIBRATE NANOCRYSTALLIZED 145 MG TABLET PO SCH (10:21)
[2019-01-28] MEDS: DOCUSATE SODIUM 100 MG CAPSULE PO SCH ×2 (10:21→17:14)
[2019-01-28] MEDS: RANOLAZINE 500 MG TAB.SR.12H PO SCH ×2 (10:22→21:23)
[2019-01-28] MEDS: LISINOPRIL 5 MG TABLET PO SCH ×2 (10:22→21:22)
[2019-01-28] MEDS: FAMOTIDINE 20 MG TABLET PO SCH ×2 (10:22→21:22)
[2019-01-28] MEDS: METOPROLOL SUCCINATE 50 MG TAB.SR.24H PO SCH ×2 (10:22→21:22)
[2019-01-28] MEDS: ESCITALOPRAM OXALATE 10 MG TABLET PO SCH (10:23)
[2019-01-28] MEDS: ISOSORBIDE MONONITRATE 30 MG TAB.ER.24H PO SCH (10:23)
[2019-01-28] MEDS: CHOLECALCIFEROL (D3) 1,000 UNIT (25 MCG) TABLET PO SCH (10:23)
[2019-01-28] MEDS: LEVOFLOXACIN 750 MG TABLET PO SCH (12:33)
[2019-01-28] MEDS: MEGESTROL ACETATE SUSP 400 MG/10 ML UDCUP PO SCH (13:00)
--- NOTE | 2019-01-28 17:24 | PDOC PROGRESS REPORT ---
Subjective Progress Note for:: 01/28/19 Subjective:: PAOLA RODRIGUEZ is a 78 year old male past medical history of COPD, TIA, diabetes type 2, GERD, depression, CAD status post CABG, prostate cancer status post chemoradiation, not a surgical candidate, complicated by urinary retention, suprapubic catheter in place on the right side, recurrent UTI. Patient was brought to ED by EMS after noticed that he was altered. As per EMS report patient had a fever, was alert to verbal command but was mumbling. In route to ED EMS recorded temperature of 100.6. As per who is at the bedside she thinks that the patient was overheated yesterday when he was working with his tractor. This morning she noted that pat ient was coughing producing mucus. She also noted that he was altered and not following command. On my encounter patient is alert oriented x3, pleasant and cooperative with physical examination, denies any fever, chills, nausea, vomiting, diarrhea, constipation or any urinary symptoms. In ED he was found to have elevated troponins, lactic acid, potassium, UA positive for leukocyte esterase and nitrites. Diagnosed with sepsis possibly source UTI and hospitalist consulted for admission. 01/25/2019. On 01/24/2019 around 6 PM troponin was found to have trended up to 7.5, still patient no chest pain, Dr. Hinkle flight engineer performance qualified was contacted immediately who suggested to talk to the patient and see if he would like to be transferred or can be started on heparin drip and aspirin until his sepsis has been treated and kidney has recovered and then he will have a stress test done here and based on the finding he will either be transferred off for new PCI or LHC here. Patient and his who is at the bedside both agreed to stay here and be started on heparin drip and treat his underlying sepsis and BLAKE and wait for a stress test. This morning patient is alert oriented x4 cooperative with physical examination, denies any chest pain, complaining of swelling, denies any fever, shortness of breath, chest pain, nausea, vomiting, diarrhea, constipation. 01/26/2019. No acute events overnight. Complaining of feeling weak, does not have an appetite, otherwise denies any fever, chills, nausea, vomiting, diarrhea, constipation, chest pain or any shortness of breath. 01/27/2019. No acute events overnight. Patient complaining of low appetite otherwise feeling better than yesterday. Denies any fever, chills, nausea, vomiting, chest pain or any urinary symptoms. Urine culture growing Klebsiella oxytoca and Procidentia Rettgeri both resistant to penicillins. Blood culture growing Klebsiella oxytoca resistant only to ampicillin. 01/28/2019. No acute events overnight. Denies any chest pain. Complaining of weakness, complaining of low appetite. Denies any fever, chills, nausea, vomiting, diarrhea, constipation or any urinary symptoms. Reason For Visit: SEPSIS, UTI Physical Exam Vital Signs: Temp Pulse Resp BP Pulse Ox 98.3 F 63 20 130/59 H 95 01/28/19 15:54 01/28/19 15:54 01/28/19 15:54 01/28/19 15:54 01/28/19 15:54 Intake & Output 01/27/19 01/28/19 01/29/19 06:59 06:59 06:59 Intake Total 790 942 Output Total 1150 1950 Balance -360 -1008 Weight 83.8 kg 83.1 kg General appearance: PRESENT: no acute distress, well-developed, well-nourished Head exam: PRESENT: atraumatic, normocephalic Respiratory exam: PRESENT: clear to auscultation [place]. ABSENT: rales, rhonchi, wheezes Cardiovascular exam: PRESENT: RRR. ABSENT: diastolic murmur, rubs, systolic murmur GI/Abdominal exam: PRESENT: normal bowel sounds, soft. ABSENT: distended, guarding, mass, organolmegaly, rebound, tenderness Results Laboratory Results: 01/28/19 06:25 01/28/19 06:25 01/28/19 01/28/19 06:25 06:25 WBC 13.5 H RBC 3.57 L Hgb 11.4 L Hct 33.8 L MCV 95 MCH 32.0 MCHC 33.8 RDW 14.3 H Plt Count 279 Seg Neutrophils % Not Reportable Lymphocytes % Not Reportable Monocytes % Not Reportable Eosinophils % Not Reportable Basophils % Not Reportable Absolute Neutrophils Not Reportable Absolute Lymphocytes Not Reportable Absolute Monocytes Not Reportable Absolute Eosinophils Not Reportable Absolute Basophils Not Reportable Sodium 134.9 L Potassium 3.8 Chloride 101 Carbon Dioxide 27 Anion Gap 7 BUN 23 H Creatinine 0.88 Est GFR ( Amer) > 60 Est GFR (Non-Af Amer) > 60 Glucose 89 Calcium 8.0 L 01/24/19 01/24/19 01/24/19 07:22 07:22 17:26 Creatine Kinase 313 H CK-MB (CK-2) 12.00 H Troponin I 2.430 7.750 01/25/19 01/25/19 01/26/19 00:49 12:16 06:23 Creatine Kinase CK-MB (CK-2) Troponin I 7.600 6.140 3.500 01/28/19 10:57 Creatine Kinase CK-MB (CK-2) Troponin I 1.280 Impressions: Chest X-Ray 01/24/19 07:56 IMPRESSION: No acute findings Assessment and Plan - Diagnosis (1) Sepsis Qualifiers: Sepsis type: sepsis due to unspecified organism Qualified Code(s): A41.9 - Sepsis, unspecified organism Is this a current diagnosis for this admission?: Yes Plan: Resolved. Vitals WNL. Urine culture growing Klebsiella oxytoca and Procidentia Rettgeri both resistant to penicillins. Blood culture growing Klebsiella oxytoca resistant only to ampicillin. On admission evidenced by hypotension, AMS, elevated lactic acid, BLAKE, elevated troponins, leukocytosis. Likely source UTI. Day 5 of antibiotics. Received 4 days of IV antibiotics. Received 3 days of IV cefepime. Day 2 p.o. levofloxacin. Continue p.o. levofloxacin, continue monitoring vitals. Urine culture growing Klebsiella oxytoca and Procidentia Rettgeri both resistant to penicillins. Blood culture growing Klebsiella oxytoca resistant only to ampicillin. Repeat cultures negative. (2) Elevated troponin Is this a current diagnosis for this admission?: Yes Plan: Denies any anginal symptoms. Troponin 2.4, 7.7, 7.6, 6.14, 1.26 respectively. Likely NSTEMI type II due to underlying sepsis by demand mismatch or NSTEMI type I. Continue antiplatelets, BEAU, heparin drip, beta-blockers, statins. Cardiology following. Recommendations noted. Notes. On 01/24/2019 around 6 PM troponin was found to have trended up to 7.5, still patient no chest pain, Dr. Hinkle flight engineer performance qualified was contacted immediately who suggested to talk to the patient and see if he would like to be transferred or can be started on heparin drip and aspirin until his sepsis has been treated and kidney has recovered and then he will have a stress test done here and based on the finding he will either be transferred off for new PCI or LHC here. I talked the patient and who is at the bedside they both agreed to stay here and get treated for his sepsis and pursue left heart cath. Patient was also seen by Dr. Hinkle on 01/25/2020 and agreed to stay. Per patient and his who is in the room his aspirin and Plavix were both stopped by his flight engineer performance qualified due to bleeding caused by complication of radiation to the prostate for his underlying prostate cancer. His BEAU and beta-blockers were also held due to hypotension. (3) CAD (coronary artery disease) Qualifiers: Coronary Disease-Associated Artery/Lesion type: bypass graft, autologous artery Associated angina: without angina Qualified Code(s): I25.810 - Atherosclerosis of coronary artery bypass graft(s) without angina pectoris Is this a current diagnosis for this admission?: Yes Plan: History of CABG. Denies any anginal symptoms. Continue antiplatelets, BEAU, heparin drip, beta-blockers, statins. Cardiology following. (4) UTI (urinary tract infection) Qualifiers: Urinary tract infection type: catheter-associated UTI Indwelling urinary catheter type: unspecified Encounter type: initial encounter Qualified C ode(s): T83.511A - Infection and inflammatory reaction due to indwelling urethral catheter, initial encounter; N39.0 - Urinary tract infection, site not specified Is this a current diagnosis for this admission?: Yes Plan: As per #1. (5) Dyslipidemia Is this a current diagnosis for this admission?: Yes Plan: Start home meds. Diet and lifestyle modification recommended. (6) Gastroesophageal reflux disease Is this a current diagnosis for this admission?: Yes Plan: Restart home meds. (7) HTN (hypertension) Is this a current diagnosis for this admission?: Yes Plan: Start home meds. Adjust dosage as needed. PRN IV hydralazine. Outpatient PCP follow-up. (8) Suprapubic catheter Is this a current diagnosis for this admission?: Yes Plan: Catheter care. Patient will need replacement of his suprapubic cath unfortunately no urology's appointment available at [facility]. Patient has establish care with urologist as outpatient. Follow-up with outpatient urology. (9) Type 2 diabetes mellitus Is this a current diagnosis for this admission?: Yes Plan: Well-controlled. 2017 A1c 6.9% Diabetic diet, sliding scale insulin, long-acting insulin, pre-meal insulin, Accu-Chek, hypoglycemic protocol. Adjust dosage as needed. Restart home meds upon discharge. Outpatient PCP follow-up. (10) Hyperkalemia Is this a current diagnosis for this admission?: Yes Plan: Resolved. Potassium WNL. Hyperkalemia protocol. BMP tomorrow. Admit to telemetry. (11) Acute renal failure Qualifiers: Acute renal failure type: unspecified Qualified Code(s): N17.9 - Acute kidney failure, unspecified Is this a current diagnosis for this admission?: Yes Plan: Resolved. Creatinine WNL. Hx of CKD. Prerenal. Most likely due to underlying sepsis. Baseline creatinine 1.5. Cautious diuresis guided by volume status, avoid nephrotoxic meds. BMP tomorrow.
[2019-01-28] MEDS: INSULIN GLARGINE,HUM.REC.ANLOG 1,000 UNIT/10 ML VIAL SUBCUT SCH (21:22)
[2019-01-28] MEDS: ATORVASTATIN CALCIUM 40 MG TABLET PO SCH (21:23)
[2019-01-29] MEDS: GABAPENTIN 300 MG CAPSULE PO SCH ×3 (05:16→17:56)
[2019-01-29 06:35] LABS: HEMATOCRIT 34.1 % (37.9-51.0); HEMOGLOBIN 11.5 g/dL (13.5-17.0); MEAN CORPUSCULAR HEMOGLOBIN 31.7 pg (27.0-33.4); MEAN CORPUSCULAR HGB CONC 33.6 g/dL (32.0-36.0); MEAN CORPUSCULAR VOLUME 94 fl (80-97); PLATELET COUNT 272 10^3/uL (150-450); RED BLOOD COUNT 3.63 10^6/uL (4.35-5.55); RED CELL DISTRIBUTION WIDTH 14.3 % (11.5-14.0); WHITE BLOOD COUNT 13.6 10^3/uL (4.0-10.5)
[2019-01-29 06:56] LABS: ALANINE AMINOTRANSFERASE 138 U/L (21-72); ALBUMIN 2.6 g/dL (3.5-5.0); ALKALINE PHOSPHATASE 74 U/L (38-126); ANION GAP 7 (5-19); ASPARTATE AMINO TRANSFERASE 140 U/L (17-59); BILIRUBIN,DIRECT 0.6 mg/dL (0.0-0.4); BILIRUBIN,TOTAL 0.9 mg/dL (0.2-1.3); BLOOD UREA NITROGEN 17 mg/dL (7-20); CARBON DIOXIDE 27 mmol/L (22-30); CHLORIDE 102 mmol/L (98-107); GLUCOSE 116 mg/dL (75-110); POTASSIUM 3.9 mmol/L (3.6-5.0); TOTAL PROTEIN 6.1 g/dL (6.3-8.2)
[2019-01-29 07:40] LABS: ABSOLUTE MONOCYTES # (MANUAL) 1.6 10^3/uL (0.1-1.4); BASOPHILS % (MANUAL) 0 % (0-2); EOSINOPHILS % (MANUAL) 0 % (0-6); LYMPHOCYTES % (MANUAL) 15 % (13-45); MONOCYTES % (MANUAL) 12 % (3-13); NUCLEATED RED BLOOD CELLS 2 /100 WBC (0); SEGMENTED NEUTROPHILS % (MAN) 73 % (42-78); TOTAL CELLS COUNTED 100
[2019-01-29 07:41] LABS: ANISOCYTOSIS SLIGHT; BURR CELLS SLIGHT; OVALOCYTES SLIGHT; PLATELET COMMENT ADEQUATE; POIKILOCYTOSIS 1+; POLYCHROMASIA SLIGHT
[2019-01-29] MEDS: INSULIN REG, HUMAN 100 UNIT/ML 3 ML VIAL (PYX) SUBCUT SCH ×4 (08:56→22:44)
[2019-01-29] MEDS: LISINOPRIL 5 MG TABLET PO SCH ×2 (09:06→22:45)
[2019-01-29] MEDS: FAMOTIDINE 20 MG TABLET PO SCH ×2 (09:06→22:45)
[2019-01-29] MEDS: ISOSORBIDE MONONITRATE 30 MG TAB.ER.24H PO SCH (09:06)
[2019-01-29] MEDS: FENOFIBRATE NANOCRYSTALLIZED 145 MG TABLET PO SCH (09:07)
[2019-01-29] MEDS: CHOLECALCIFEROL (D3) 1,000 UNIT (25 MCG) TABLET PO SCH (09:07)
[2019-01-29] MEDS: ESCITALOPRAM OXALATE 10 MG TABLET PO SCH (09:08)
[2019-01-29] MEDS: METOPROLOL SUCCINATE 50 MG TAB.SR.24H PO SCH ×2 (09:08→22:45)
[2019-01-29] MEDS: RANOLAZINE 500 MG TAB.SR.12H PO SCH ×2 (09:08→22:45)
[2019-01-29] MEDS: DOCUSATE SODIUM 100 MG CAPSULE PO SCH ×2 (09:09→17:55)
[2019-01-29] MEDS: MEGESTROL ACETATE SUSP 400 MG/10 ML UDCUP PO SCH (09:17)
[2019-01-29] MEDS: LEVOFLOXACIN 750 MG TABLET PO SCH (12:43)
[2019-01-29] MEDS: HEPARIN SOD (PORCINE) 5,000 UNIT/ML 1 ML VIAL SUBCUT SCH ×2 (15:00→22:30)
--- NOTE | 2019-01-29 15:08 | PDOC PROGRESS REPORT ---
Subjective Progress Note for:: 01/29/19 Subjective:: PAOLA RODRIGUEZ is a 78 year old male past medical history of COPD, TIA, diabetes type 2, GERD, depression, CAD status post CABG, prostate cancer status post chemoradiation, not a surgical candidate, complicated by urinary retention, suprapubic catheter in place on the right side, recurrent UTI. Patient was brought to ED by EMS after noticed that he was altered. As per EMS report patient had a fever, was alert to verbal command but was mumbling. In route to ED EMS recorded temperature of 100.6. As per who is at the bedside she thinks that the patient was overheated yesterday when he was working with his tractor. This morning she noted that pat ient was coughing producing mucus. She also noted that he was altered and not following command. On my encounter patient is alert oriented x3, pleasant and cooperative with physical examination, denies any fever, chills, nausea, vomiting, diarrhea, constipation or any urinary symptoms. In ED he was found to have elevated troponins, lactic acid, potassium, UA positive for leukocyte esterase and nitrites. Diagnosed with sepsis possibly source UTI and hospitalist consulted for admission. 01/25/2019. On 01/24/2019 around 6 PM troponin was found to have trended up to 7.5, still patient no chest pain, Dr. Hinkle hourly associate was contacted immediately who suggested to talk to the patient and see if he would like to be transferred or can be started on heparin drip and aspirin until his sepsis has been treated and kidney has recovered and then he will have a stress test done here and based on the finding he will either be transferred off for new PCI or LHC here. Patient and his who is at the bedside both agreed to stay here and be started on heparin drip and treat his underlying sepsis and BLAKE and wait for a stress test. This morning patient is alert oriented x4 cooperative with physical examination, denies any chest pain, complaining of swelling, denies any fever, shortness of breath, chest pain, nausea, vomiting, diarrhea, constipation. 01/26/2019. No acute events overnight. Complaining of feeling weak, does not have an appetite, otherwise denies any fever, chills, nausea, vomiting, diarrhea, constipation, chest pain or any shortness of breath. 01/27/2019. No acute events overnight. Patient complaining of low appetite otherwise feeling better than yesterday. Denies any fever, chills, nausea, vomiting, chest pain or any urinary symptoms. Urine culture growing Klebsiella oxytoca and Procidentia Rettgeri both resistant to penicillins. Blood culture growing Klebsiella oxytoca resistant only to ampicillin. 01/28/2019. No acute events overnight. Denies any chest pain. Complaining of weakness, complaining of low appetite. Denies any fever, chills, nausea, vomiting, diarrhea, constipation or any urinary symptoms. 01/29/2019. No acute events overnight. Mild improvement of low appetite. Patient does not like to eat because he does not like hospital food he denies any chest pain, shortness of breath, nausea vomiting diarrhea or constipation. Reason For Visit: SEPSIS, UTI Physical Exam Vital Signs: Temp Pulse Resp BP Pulse Ox 97.6 F 59 L 17 126/56 H 100 01/29/19 10:54 01/29/19 14:00 01/29/19 10:54 01/29/19 07:30 01/29/19 10:54 Intake & Output 01/28/19 01/29/19 01/30/19 06:59 06:59 06:59 Intake Total 942 1406 240 Output Total 6088 5095 Balance -2961 -3554 240 Weight 83.1 kg 81.5 kg General appearance: PRESENT: no acute distress, well-developed, well-nourished Head exam: PRESENT: atraumatic, normocephalic Respiratory exam: PRESENT: clear to auscultation [place]. ABSENT: rales, rhonchi, wheezes Cardiovascular exam: PRESENT: RRR. ABSENT: diastolic murmur, rubs, systolic murmur Rectal exam: PRESENT: deferred Results Laboratory Results: 01/29/19 05:58 01/29/19 05:58 01/29/19 01/29/19 05:58 05:58 WBC 13.6 H RBC 3.63 L Hgb 11.5 L Hct 34.1 L MCV 94 MCH 31.7 MCHC 33.6 RDW 14.3 H Plt Count 272 Seg Neutrophils % Not Reportable Lymphocytes % Not Reportable Monocytes % Not Reportable Eosinophils % Not Reportable Basophils % Not Reportable Absolute Neutrophils Not Reportable Absolute Lymphocytes Not Reportable Absolute Monocytes Not Reportable Absolute Eosinophils Not Reportable Absolute Basophils Not Reportable Sodium 135.9 L Potassium 3.9 Chloride 102 Carbon Dioxide 27 Anion Gap 7 BUN 17 Creatinine 0.84 Est GFR ( Amer) > 60 Est GFR (Non-Af Amer) > 60 Glucose 116 H Calcium 8.0 L Magnesium 2.2 Total Bilirubin 0.9 AST 140 H ALT 138 H Alkaline Phosphatase 74 Total Protein 6.1 L Albumin 2.6 L 01/24/19 08:47 Blood Blood Culture - Final NO GROWTH IN 5 DAYS 01/24/19 01/24/19 01/24/19 07:22 07:22 17:26 Creatine Kinase 313 H CK-MB (CK-2) 12.00 H Troponin I 2.430 7.750 01/25/19 01/25/19 01/26/19 00:49 12:16 06:23 Creatine Kinase CK-MB (CK-2) Troponin I 7.600 6.140 3.500 01/28/19 10:57 Creatine Kinase CK-MB (CK-2) Troponin I 1.280 Impressions: Chest X-Ray 01/24/19 07:56 IMPRESSION: No acute findings Assessment and Plan - Diagnosis (1) Sepsis Qualifiers: Sepsis type: sepsis due to unspecified organism Qualified Code(s): A41.9 - Sepsis, unspecified organism Is this a current diagnosis for this admission?: Yes Plan: Resolved. Vitals WNL. Urine culture growing Klebsiella oxytoca and Procidentia Rettgeri both resistant to penicillins. Blood culture growing Klebsiella oxytoca resistant only to ampicillin. On admission evidenced by hypotension, AMS, elevated lactic acid, BLAKE, elevated troponins, leukocytosis. Likely source UTI. Day 6 of antibiotics. Received 4 days of IV antibiotics. Received 3 days of IV cefepime. Day 3 p.o. levofloxacin. Continue p.o. levofloxacin, continue monitoring vitals. Urine culture growing Klebsiella oxytoca and Procidentia Rettgeri both resistant to penicillins. Blood culture growing Klebsiella oxytoca resistant only to ampicillin. Repeat cultures negative. (2) Elevated troponin Is this a current diagnosis for this admission?: Yes Plan: Denies any anginal symptoms. Troponin 2.4, 7.7, 7.6, 6.14, 1.26 respectively. Likely NSTEMI type II due to underlying sepsis by demand mismatch or NSTEMI type I. Continue antiplatelets, BEAU, beta-blockers, statins. Cardiology following. Recommendations noted. Pending 2D echo. Notes. On 01/24/2019 around 6 PM troponin was found to have trended up to 7.5, still patient no chest pain, Dr. Hinkle hourly associate was contacted immediately who suggested to talk to the patient and see if he would like to be transferred or can be started on heparin drip and aspirin until his sepsis has been treated and kidney has recovered and then he will have a stress test done here and based on the finding he will either be transferred off for new PCI or LHC here. I talked the patient and who is at the bedside they both agreed to stay here and get treated for his sepsis and pursue left heart cath. Patient was also seen by Dr. Hinkle on 01/25/2020 and agreed to stay. Per patient and his who is in the room his aspirin and Plavix were both stopped by his hourly associate due to bleeding caused by complication of radiation to the prostate for his underlying prostate cancer. His BEAU and beta-blockers were also held due to hypotension. (3) CAD (coronary artery disease) Qualifiers: Coronary Disease-Associated Artery/Lesion type: bypass graft, autologous artery Associated angina: without angina Qualified Code(s): I25.810 - Atherosclerosis of coronary artery bypass graft(s) without angina pectoris Is this a current diagnosis for this admission?: Yes Plan: History of CABG. Denies any anginal symptoms. Continue antiplatelets, BEAU, heparin drip, beta-blockers, statins. Cardiology following. (4) UTI (urinary tract infection) Qualifiers: Urinary tract infection type: catheter-associated UTI Indwelling urinary catheter type: unspecified Encounter type: initial encounter Qualified Code(s): T83.511A - Infection and inflammatory reaction due to indwelling urethral catheter, initial encounter; N39.0 - Urinary tract infection, site not specified Is this a current diagnosis for this admission?: Yes Plan: As per #1. (5) Dyslipidemia Is this a current diagnosis for this admission?: Yes Plan: Start home meds. Diet and lifestyle modification recommended. (6) Gastroesophageal reflux disease Is this a current diagnosis for this admission?: Yes Plan: Restart home meds. (7) HTN (hypertension) Is this a current diagnosis for this admission?: Yes Plan: Start home meds. Adjust dosage as needed. PRN IV hydralazine. Outpatient PCP follow-up. (8) Suprapubic catheter Is this a current diagnosis for this admission?: Yes Plan: Catheter care. Patient will need replacement of his suprapubic cath unfortunately no urology's appointment available at [facility]. Patient has establish care with urologist as outpatient. Follow-up with outpatient urology. (9) Type 2 diabetes mellitus Is this a current diagnosis for this admission?: Yes Plan: Well-controlled. 2017 A1c 6.9% Diabetic diet, sliding scale insulin, long-acting insulin, pre-meal insulin, Accu-Chek, hypoglycemic protocol. Adjust dosage as needed. Restart home meds upon discharge. Outpatient PCP follow-up. (10) Hyperkalemia Is this a current diagnosis for this admission?: Yes Plan: Resolved. Potassium WNL. Hyperkalemia protocol. BMP tomorrow. Admit to telemetry. (11) Acute renal failure Qualifiers: Acute renal failure type: unspecified Qualified Code(s): N17.9 - Acute kidney failure, unspecified Is this a current diagnosis for this admission?: Yes Plan: Resolved. Creatinine WNL. Hx of CKD. Prerenal. Most likely due to underlying sepsis. Baseline creatinine 1.5. Cautious diuresis guided by volume status, avoid nephrotoxic meds. BMP tomorrow.
--- NOTE | 2019-01-29 21:49 | Progress Note ---
Provider Note Provider Note: CARDIOLOGY PROGRESS NOTE by Dr. Joanne Kitchen on 01/29/2019. SUBJECTIVE: The patient denies any chest pain or discomfort. There is no PND orthopnea or shortness of breath. There is no arrhythmia seen on the monitor. There is no TIA CVA symptoms. The patient is awake alert and oriented x3 he is anxious to go home. We will stop his atorvastatin due to abnormal liver function tests. PHYSICAL EXAMINATION: The patient appears to be well-built and well-nourished in no acute distress. Selected Entries 01/29/19 01/29/19 10:54 15:34 Temperature 97.6 F 98.7 F Temperature Oral Oral Source Pulse Rate 62 60 Respiratory 17 Rate Blood Pressure 137/62 H Blood Pressure 87 Mean BP Location Right Arm Right Arm BP Position Supine Supine O2 Sat by Pulse 100 94 Oximetry Oxygen Flow 3.00 Rate Oxygen Delivery Nasal Cannula Room Air Method HEAD: Is atraumatic normocephalic. EYES: Pupils are equal round regular reactive light accommodation. NOSE: Nasal mucous membranes are intact. External canals are clear. MOUTH: Mucous membranes of mouth are moist. Tongue is moist. THROAT: There is no redness of the oropharynx. There is no exudates. SKIN: There is no skin rashes or skin lesions. There is no ecchymosis or petechiae. There is no skin lesions or rashes. NECK: Is supple. There is no JVD. Carotids are equal there is no bruits. There is no accessory muscle respiration use. TRACHEA is central. LUNGS: Is clear to auscultation percussion. There is no rhonchi rales or wheezing. HEART: S1-S2 is heard. There is no S3 gallop. There is no gallop the systolic murmur left sternal border and the apex there is no rub. ABDOMEN: There is no hepatosplenomegaly. Bowel sounds are well heard. There is supra pubic cystostomy catheter in situ. The area/site of insertion looks clean without infection. EXTREMITIES: Femorals are diminished. There is no femoral bruits. Leg pulses are diminished. There is no pedal edema. There is no DVT or cellulitis. There is no calf tenderness. SAFETY PROFESSIONAL: Patient is conscious awake alert oriented x3 with no focal deficit. PSYCHIATRIC: Patient judgment insight are intact his affect is normal. 01/29/19 01/29/19 05:58 05:58 WBC 13.6 H RBC 3.63 L Hgb 11.5 L Hct 34.1 L Plt Count 272 Sodium 135.9 L Potassium 3.9 Chloride 102 Carbon Dioxide 27 BUN 17 Creatinine 0.84 Est GFR ( Amer) > 60 Est GFR (Non-Af Amer) > 60 Glucose 116 H Calcium 8.0 L Magnesium 2.2 Total Bilirubin 0.9 Direct Bilirubin 0.6 H Neonat Total Bilirubin Not Reportable Neonat Direct Bilirubin Not Reportable Neonat Indirect Bili Not Reportable AST 140 H ALT 138 H Alkaline Phosphatase 74 ECHO: The left ventricle is normal in size. There is mild concentric left ventricular hypertrophy. LV EF is 60% The left ventricular ejection fraction is within normal limits. Doppler measurements suggest normal left ventricular diastolic function The left ventricular wall motion is normal. There is no thrombus. No ASD,VSD , or PFO seen. The right ventricle is mild to moderately dilated. The right atrium is mildly dilated. The left atrium is mildly dilated. There is mild mitral annular calcification. There is no evidence of mitral valve prolapse. There is no vegetation seen on the mitral valve. There is no mitral valve stenosis. There is a mild amount of mitral regurgitation There is no aortic valvular vegetation. There is no aortic valve stenosis There is aortic sclerosis without aortic stenosis. There is no LVOT obstruction. No aortic regurgitation is present. There is no tricuspid stenosis. There is a moderate to severe amount of tricuspid regurgitation There is moderate pulmonary hypertension by echo RVSP is 56 to 61 mm of Hg,with RA mean of 5 to 10. There is no pulmonic valvular stenosis. There is a trace amount of pulmonic regurgitation The aortic root is normal size. The inferior vena cava appeared normal and decreased > 50% with respiration (RAP 5-10 mmHg) IMPRESSION/RECOMMENDATION: 1. Non-ST elevation DE: Patient with known coronary artery disease. The patient's troponin is trending down. Patient asymptomatic. The patient is a full dose IV heparin has been changed to DVT prophylaxis heparin doses. I have discussed the patient's case with Dr. Christos Mcgill, the patient's supervisor hand silvering. He agrees with the current management and when the patient is discharged he will have the patient see him as early as possible. 2. Sepsis secondary to gram-negative urinary tract infection. Note this is resolved 3. Coronary artery disease: Note patient anti-CAD medications have been ma ximized. 4. Hypertension: Well controlled. Continue current medications. 5. Diabetes mellitus: Continue antidiabetic medication and serial Accu-Cheks. 6. Hyperlipidemia: In view of abnormal liver function tests. The patient statin. 7. Confusion and altered mental status on admission most likely secondary to metabolic effects of sepsis. This is resolved. No evidence of TIA or CVA. 8.? History of chronic kidney disease stage III. At present the GFR is normal, with normal renal function. Probably secondary to dehydration. 9. Abnormal liver function test. We will stop the patient's statin. Will have the patient recheck his LFTs by his PMD as an outpatient in 2 to 3 weeks. Would if the liver function test become normal then we will restart the patient's statin at a lower dose. 10. History of prostate cancer: Status post suprapubic cystostomy Echo findings discussed with the patient. Management plan discussed with attending physician. Medications reviewed medications adjusted in the form of stopping the patient's statin. Medical decision making is of moderate complexity. The patient's cardiac status is stable. Would recommend discharging the patient home on current medications. Would recommend that the patient recheck the patient's LFTs in 2 to 3 weeks, and resume statin if possible at the low-dose. Cardiac status is stable will sign off. This has been discussed with the hospitalist attending physician on the case.
--- NOTE | 2019-01-29 22:09 | XCELERA REPORT ---
[address] [address] Transthoracic Echocardiogram Report Name: PAOLA RODRIGUEZ Age: 78 yrs Gender: Male : 1940 Patient Status: Inpatient Patient Location: [address] [place] [address] Study Date: 01/29/2019 11:08 AM Height: 71 in Weight: 179 lb BSA: 2.0 m2 Procedure: A two-dimensional transthoracic echocardiogram with color flow Doppler was performed. Study Quality: Good. Reason For Study: NSTEMI / MR History: NSTEMI / MR. Ordering Physician: JOANNE AGUILAR Performed By: Shanika Coleman Interpretation Summary The left ventricle is normal in size. There is mild concentric left ventricular hypertrophy. LV EF is 60% The left ventricular ejection fraction is within normal limits. Doppler measurements suggest normal left ventricular diastolic function The left ventricular wall motion is normal. There is no thrombus. No ASD,VSD , or PFO seen. The right ventricle is mild to moderately dilated. The right atrium is mildly dilated. The left atrium is mildly dilated. There is mild mitral annular calcification. There is no evidence of mitral valve prolapse. There is no vegetation seen on the mitral valve. There is no mitral valve stenosis. There is a mild amount of mitral regurgitation There is no aortic valvular vegetation. There is no aortic valve stenosis There is aortic sclerosis without aortic stenosis. There is no LVOT obstruction. No aortic regurgitation is present. There is no tricuspid stenosis. There is a moderate to severe amount of tricuspid regurgitation There is moderate pulmonary hypertension by echo RVSP is 56 to 61 mm of Hg,with RA mean of 5 to 10. There is no pulmonic valvular stenosis. There is a trace amount of pulmonic regurgitation The aortic root is normal size. The inferior vena cava appeared normal and decreased > 50% with respiration (RAP 5-10 mmHg) There is no pericardial effusion. MMode/2D Measurements & Calculations RVDd: 4.7 cm LVIDd: 4.8 cm FS: 33.1 % Ao root diam: 3.1 cm IVSd: 1.3 cm LVIDs: 3.2 cm EDV(Teich): 105.2 ml Ao root area: 7.7 cm2 LVPWd: 1.3 cm ESV(Teich): 40.4 ml LA dimension: 4.5 cm EF(Teich): 61.6 % Doppler Measurements & Calculations MV E max jules: MV P1/2t max jules: Ao V2 max: LV V1 max P.5 cm/sec 113.5 cm/sec 170.4 cm/sec 3.8 mmHg MV A max jules: MV P1/2t: 58.8 msec Ao max PG: LV V1 max: 37.0 cm/sec MVA(P1/2t): 3.7 cm2 11.6 mmHg 97.7 cm/sec MV E/A: 3.0 MV dec slope: 565.6 cm/sec2 MV dec time: 0.19 sec PA V2 max: PI end-d jules: TR max jules: MV P1/2t-pr_phl: 70.6 cm/sec 153.4 cm/sec 357.1 cm/sec 58.8 msec PA max P.0 mmHg TR max P.0 mmHg Left Ventricle The left ventricle is normal in size. There is mild concentric left ventricular hypertrophy. LV EF is 60%. The left ventricular ejection fraction is within normal limits. Doppler measurements suggest normal left ventricular diastolic function. The left ventricular wall motion is normal. There is no thrombus. No ASD,VSD , or PFO seen. Right Ventricle The right ventricle is mild to moderately dilated. The right ventricle is not well visualized secondary to technical limitations. The right ventricular systolic function is normal. Atria The right atrium is mildly dilated. The left atrium is mildly dilated. Mitral Valve There is mild mitral annular calcification. There is no evidence of mitral valve prolapse. There is no vegetation seen on the mitral valve. There is no mitral valve stenosis. There is a mild amount of mitral regurgitation. Aortic Valve There is no aortic valvular vegetation. There is no aortic valve stenosis. There is aortic sclerosis without aortic stenosis. There is no LVOT obstruction. No aortic regurgitation is present. Tricuspid Valve There is no tricuspid stenosis. There is a moderate to severe amount of tricuspid regurgitation. There is moderate pulmonary hypertension by echo. RVSP is 56 to 61 mm of Hg,with RA mean of 5 to 10. Pulmonic Valve There is no pulmonic valvular stenosis. There is a trace amount of pulmonic regurgitation. Great Vessels The aortic root is normal size. The inferior vena cava appeared normal and decreased > 50% with respiration (RAP 5-10 mmHg). Effusions There is no pericardial effusion. : JOANNE AGUILAR > Joanne Aguilar
[2019-01-29] MEDS: INSULIN GLARGINE,HUM.REC.ANLOG 1,000 UNIT/10 ML VIAL SUBCUT SCH (22:45)
[2019-01-29] MEDS: ATORVASTATIN CALCIUM 40 MG TABLET PO SCH (22:45)
[2019-01-30] MEDS: GABAPENTIN 300 MG CAPSULE PO SCH ×3 (00:36→12:49)
[2019-01-30] MEDS: HEPARIN SOD (PORCINE) 5,000 UNIT/ML 1 ML VIAL SUBCUT SCH (06:57)
[2019-01-30 07:53] VITALS: BP 155/67
[2019-01-30] MEDS: INSULIN REG, HUMAN 100 UNIT/ML 3 ML VIAL (PYX) SUBCUT SCH ×2 (07:57→12:48)
[2019-01-30 10:05] LABS: HEMATOCRIT 34.9 % (37.9-51.0); HEMOGLOBIN 11.8 g/dL (13.5-17.0); MEAN CORPUSCULAR HEMOGLOBIN 32.2 pg (27.0-33.4); MEAN CORPUSCULAR VOLUME 95 fl (80-97); PLATELET COUNT 316 10^3/uL (150-450); RED BLOOD COUNT 3.68 10^6/uL (4.35-5.55); RED CELL DISTRIBUTION WIDTH 14.5 % (11.5-14.0); WHITE BLOOD COUNT 11.8 10^3/uL (4.0-10.5)
[2019-01-30] MEDS: RANOLAZINE 500 MG TAB.SR.12H PO SCH (10:21)
[2019-01-30 10:22] LABS: ALANINE AMINOTRANSFERASE 91 U/L (21-72); ALBUMIN 2.7 g/dL (3.5-5.0); ALKALINE PHOSPHATASE 68 U/L (38-126); ANION GAP 7 (5-19); ASPARTATE AMINO TRANSFERASE 63 U/L (17-59); BILIRUBIN,DIRECT 0.5 mg/dL (0.0-0.4); BILIRUBIN,TOTAL 0.8 mg/dL (0.2-1.3); BLOOD UREA NITROGEN 15 mg/dL (7-20); CALCIUM 8.5 mg/dL (8.4-10.2); CARBON DIOXIDE 25 mmol/L (22-30); CHLORIDE 102 mmol/L (98-107); GLUCOSE 221 mg/dL (75-110); POTASSIUM 4.5 mmol/L (3.6-5.0); TOTAL PROTEIN 6.1 g/dL (6.3-8.2)
[2019-01-30] MEDS: FENOFIBRATE NANOCRYSTALLIZED 145 MG TABLET PO SCH (10:22)
[2019-01-30] MEDS: LISINOPRIL 5 MG TABLET PO SCH (10:22)
[2019-01-30] MEDS: CHOLECALCIFEROL (D3) 1,000 UNIT (25 MCG) TABLET PO SCH (10:23)
[2019-01-30] MEDS: FAMOTIDINE 20 MG TABLET PO SCH (10:24)
[2019-01-30] MEDS: ESCITALOPRAM OXALATE 10 MG TABLET PO SCH (10:24)
[2019-01-30] MEDS: ISOSORBIDE MONONITRATE 30 MG TAB.ER.24H PO SCH (10:24)
[2019-01-30] MEDS: METOPROLOL SUCCINATE 50 MG TAB.SR.24H PO SCH (10:25)
[2019-01-30] MEDS: MEGESTROL ACETATE SUSP 400 MG/10 ML UDCUP PO SCH (10:30)
[2019-01-30] MEDS ORDERED: PROMETHAZINE HCL INJ 25 MG/1 ML VIAL IV PRN (10:30)
[2019-01-30 10:35] LABS: ABSOLUTE LYMPHOCYTES# (MANUAL) 2.2 10^3/uL (0.5-4.7); ABSOLUTE MONOCYTES # (MANUAL) 1.1 10^3/uL (0.1-1.4); BASOPHILS % (MANUAL) 0 % (0-2); EOSINOPHILS % (MANUAL) 1 % (0-6); LYMPHOCYTES % (MANUAL) 17 % (13-45); METAMYELOCYTES % (MANUAL) 2 % (0); MONOCYTES % (MANUAL) 9 % (3-13); NUCLEATED RED BLOOD CELLS 1 /100 WBC (0); SEGMENTED NEUTROPHILS % (MAN) 67 % (42-78); TOTAL CELLS COUNTED 100
[2019-01-30 10:37] LABS: ANISOCYTOSIS SLIGHT; PLATELET COMMENT ADEQUATE; POLYCHROMASIA 1+; PROMYELOCYTES % (MANUAL) 2 % (0); TOXIC GRANULATION SLIGHT
[2019-01-30] MEDS: DOCUSATE SODIUM 100 MG CAPSULE PO SCH (12:42)
[2019-01-30] MEDS: LEVOFLOXACIN 750 MG TABLET PO SCH (12:48)
[2019-01-31 14:16] LABS: PATH REVIEW PATHOLOGIST REVIEWED
--- NOTE | 2019-01-31 17:58 | PDOC DISCHARGE SUMMARY ---
General - Admit/Disc Date/PCP Admission Date/Primary Care Provider: 01/24/19 11:48 MAE DIA Discharge Date: 01/30/19 - Discharge Diagnosis (1) Sepsis Is this a current diagnosis for this admission?: Yes (2) Elevated troponin Is this a current diagnosis for this admission?: Yes (3) CAD (coronary artery disease) Is this a current diagnosis for this admission?: Yes (4) UTI (urinary tract infection) Is this a current diagnosis for this admission?: Yes (5) Dyslipidemia Is this a current diagnosis for this admission?: Yes (6) Gastroesophageal reflux disease Is this a current diagnosis for this admission?: Yes (7) HTN (hypertension) Is this a current diagnosis for this admission?: Yes (8) Suprapubic catheter Is this a current diagnosis for this admission?: Yes (9) Type 2 diabetes mellitus Is this a current diagnosis for this admission?: Yes (10) Hyperkalemia Is this a current diagnosis for this admission?: Yes (11) Acute renal failure Is this a current diagnosis for this admission?: Yes - Additional Information Prescriptions: Isosorbide Mononitrate [Imdur 30 mg Tablet.er] 30 mg PO DAILY 30 Days #30 tab.er.24h Levofloxacin [Levaquin 750 mg Tablet] 750 mg PO DAILY 5 Days #5 tab Lisinopril [Prinivil 5 mg Tablet] 5 mg PO DAILY 30 Days #30 tablet Metoprolol Succinate [Toprol Xl 50 mg Tab.sr] 50 mg PO DAILY 30 Days #30 tab.sr.24h Home Medications: Cholecalciferol (Vitamin D3) [Vitamin D3 2000 unit Tablet] 2,000 unit PO DAILY 09/13/17 Cyanocobalamin (Vitamin B-12) [Vitamin B-12 1000 mcg Tablet] 1,000 mcg PO DAILY 09/13/17 Diphenhydramine HCl [Benadryl 25 mg Capsule] 25 mg PO BIDP PRN 09/13/17 Escitalopram Oxalate [Lexapro 10 mg Tablet] 10 mg PO DAILY 09/13/17 Fenofibrate [Lipofen] 150 mg PO DAILY 09/13/17 Folic Acid [Folvite 1 mg Tablet] 1 mg PO DAILY 09/13/17 Gabapentin [Neurontin 300 mg Capsule] 600 mg PO Q6 09/13/17 Insulin Aspart [Novolog Insulin (Aspart) 100 unit/mL] 30 unit SUBCUT .+ SLD SCALE 09/13/17 Insulin Degludec [Tresiba Flextouch U-200] 70 units SUBCUT QHS 09/13/17 Ranolazine [Ranexa] 1,000 mg PO Q12 09/13/17 Ubidecarenone/Vit E Acet [Co Q-10 100 mg Softgel] 1 each PO DAILY 09/13/17 Vit C/E/Zn/Coppr/Lutein/Zeaxan [Preservision Areds 2 Softgel] 1 each PO BID 09/13/17 Chlorzoxazone [Parafon Forte Dsc 500 mg Tablet] 500 mg PO HSP PRN 01/24/19 Esomeprazole Magnesium [Nexium] 20 mg PO QAM 01/24/19 Nitroglycerin 0.4 mg SL Q5MP PRN 01/24/19 Isosorbide Mononitrate [Imdur 30 mg Tablet.er] 30 mg PO DAILY 30 Days #30 tab.er.24h 01/30/19 Levofloxacin [Levaquin 750 mg Tablet] 750 mg PO DAILY 5 Days #5 tab 01/30/19 Lisinopril [Prinivil 5 mg Tablet] 5 mg PO DAILY 30 Days #30 tablet 01/30/19 Metoprolol Succinate [Toprol Xl 50 mg Tab.sr] 50 mg PO DAILY 30 Days #30 ta b.sr.24h 01/30/19 History of Present Illness History of Present Illness: PAOLA RODRIGUEZ is a 78 year old male past medical history of COPD, TIA, diabetes type 2, GERD, depression, CAD status post CABG, prostate cancer status post chemoradiation, not a surgical candidate, complicated by urinary retention, suprapubic catheter in place on the right side, recurrent UTI. Patient was brought to ED by EMS after noticed that he was altered. As per EMS report patient had a fever, was alert to verbal command but was mumbling. In route to ED EMS recorded temperature of 100.6. As per who is at the bedside she thinks that the patient was overheated yesterday when he was working with his tractor. This morning she noted that patient was coughing producing mucus. She also noted that he was altered and not following command. On my encounter patient is alert oriented x3, pleasant and cooperative with physical examination, denies any fever, chills, nausea, vomiting, diarrhea, constipation or any urinary symptoms. In ED he was found to have elevated troponins, lactic acid, potassium, UA positive for leukocyte esterase and nitrites. Diagnosed with sepsis possibly source UTI and hospitalist consulted for admission. Hospital Course Hospital Course: (1) Sepsis Resolved. Vitals WNL. Urine culture growing Klebsiella oxytoca and Procidentia Rettgeri both resistant to penicillins. Blood culture growing Klebsiella oxytoca resistant only to ampicillin. On admission evidenced by hypotension, AMS, elevated lactic acid, BLAKE, elevated troponins, leukocytosis. Likely source urine. Received 7 days of antibiotics inpatient and was discharged on levofloxacin p.o. to complete another 5 days a total of 12 days. Received 4 days of IV antibiotics. Received 3 days of IV cefepime. Received 4 days of p.o. levofloxacin. Urine culture growing Klebsiella oxytoca and Procidentia Rettgeri both resistant to penicillins. Blood culture growing Klebsiella oxytoca resistant only to ampicillin. Repeat cultures negative. Follow-up with PCP. (2) Elevated troponin Denies any anginal symptoms. Troponin 2.4, 7.7, 7.6, 6.14, 1.26 respectively. Likely NSTEMI type II due to underlying sepsis by demand mismatch or NSTEMI type I. Was started on antiplatelets, BEAU, beta-blockers, statins. Cardiology consulted. Recommendations noted. 2D echo LVEF 65%. An appointment was made for patient to see his wellness program coordinator as soon as possible. Dr. Hinkle wellness program coordinator had contacted his wellness program coordinator and updated him. Notes. On 01/24/2019 around 6 PM troponin was found to have trended up to 7.5, still patient no chest pain, Dr. Hinkle wellness program coordinator was contacted immediately who suggested to talk to the patient and see if he would like to be transferred or can be started on heparin drip and aspirin until his sepsis has been treated and kidney has recovered and then he will have a stress test done here and based on the finding he will either be transferred off for new PCI or LHC here. I talked the patient and who is at the bedside they both agreed to stay here and get treated for his sepsis and pursue left heart cath. Patient was also seen by Dr. Hinkle on 01/25/2020 and agreed to stay. Per patient and his who is in the room his aspirin and Plavix were both stopped by his wellness program coordinator due to bleeding caused by complication of radiation to the prostate for his underlying prostate cancer. His BEAU and beta-blockers were also held due to hypotension. (3) CAD (coronary artery disease) History of CABG. Denies any anginal symptoms. Continue antiplatelets, BEAU, heparin drip, beta-blockers, statins. Cardiology consulted and recommendations noted. (4) UTI (urinary tract infection) As per #1. (5) Dyslipidemia Restarted home meds. Diet and lifestyle modification recommended. (6) Gastroesophageal reflux disease Hemoglobin stable. Restart home meds. (7) HTN (hypertension) Normotensive. Restarted home meds. Adjust dosage as needed. PRN IV hydralazine. Outpatient PCP follow-up. (8) Suprapubic catheter Catheter care. Patient will need replacement of his suprapubic cath unfortunately no urology's appointment available at [facility]. Patient has establish care with urologist as outpatient. An appointment was made for him to see his urologist as outpatient. (9) Type 2 diabetes mellitus Well-controlled. 2017 A1c 6.9% Diabetic diet, sliding scale insulin, long-acting insulin, pre-meal insulin, Accu-Chek, hypoglycemic protocol. Adjust dosage as needed. Restart home meds upon discharge. Outpatient PCP follow-up. (10) Hyperkalemia Resolved. Potassium WNL. Hyperkalemia protocol. BMP tomorrow. Admit to telemetry. (11) Acute renal failure Resolved. Creatinine WNL. Hx of CKD. Prerenal. Most likely due to underlying sepsis. Baseline creatinine 1.5. Started on cautious diuresis guided by volume status, avoid nephrotoxic meds. Telemetry BMP. BMP tomorrow. Physical Exam Vital Signs: Temp Pulse Resp BP Pulse Ox 98.2 F 64 17 155/67 H 97 01/30/19 07:13 01/30/19 07:13 01/30/19 07:13 01/30/19 07:13 01/30/19 07:13 Intake & Output 01/30/19 01/31/19 02/01/19 06:59 06:59 06:59 Intake Total 840 Output Total 2300 800 Balance -1460 -800 Weight 81 kg General appearance: PRESENT: no acute distress, well-developed, well-nourished Head exam: PRESENT: atraumatic, normocephalic Respiratory exam: PRESENT: clear to auscultation [place]. ABSENT: rales, rhonchi, wheezes Cardiovascular exam: PRESENT: RRR. ABSENT: diastolic murmur, rubs, systolic murmur GI/Abdominal exam: PRESENT: normal bowel sounds, soft. ABSENT: distended, guarding, mass, organolmegaly, rebound, tenderness Neurological exam: PRESENT: alert, awake, oriented to person, oriented to place, oriented to time, oriented to situation, CN II-XII grossly intact. ABSENT: motor sensory deficit Results Laboratory Results: 01/30/19 09:38 01/30/19 09:38 01/24/19 01/24/19 01/24/19 07:22 07:22 17:26 Creatine Kinase 313 H CK-MB (CK-2) 12.00 H Troponin I 2.430 7.750 01/25/19 01/25/19 01/26/19 00:49 12:16 06:23 Creatine Kinase CK-MB (CK-2) Troponin I 7.600 6.140 3.500 01/28/19 10:57 Creatine Kinase CK-MB (CK-2) Troponin I 1.280 Impressions: Chest X-Ray 01/24/19 07:56 IMPRESSION: No acute findings Qualifiers - * PATIENT BEING DISCHARGED WITH ANY OF THE FOLLOWING DIAGNOSIS: No Acute Heart Failure - Is this a Heart Failure Patient?: No
== END 2019-01-30 13:13 | disposition home or self-care (01) | DRG 698 ==
LOC: ER 07:49 → EH 11:48 → 3S 21:12
PROVIDERS: ADMIT Internal Medicine; ATTEND Internal Medicine
DX: T83.511A Infection and inflammatory reaction due to indwelling urethral catheter, initial encounter (principal); A41.9 Sepsis, unspecified organism; I21.A1 Myocardial infarction type 2; N17.9 Acute kidney failure, unspecified; I25.810 Atherosclerosis of coronary artery bypass graft(s) without angina pectoris; N39.0 Urinary tract infection, site not specified; E78.5 Hyperlipidemia, unspecified; K21.9 Gastro-esophageal reflux disease without esophagitis; J44.9 Chronic obstructive pulmonary disease, unspecified; B96.1 Klebsiella pneumoniae [K. pneumoniae] as the cause of diseases classified elsewhere; B96.89 Other specified bacterial agents as the cause of diseases classified elsewhere; Z16.11 Resistance to penicillins; E11.51 Type 2 diabetes mellitus with diabetic peripheral angiopathy without gangrene; C61 Malignant neoplasm of prostate; F32.9 Major depressive disorder, single episode, unspecified; E11.22 Type 2 diabetes mellitus with diabetic chronic kidney disease; N18.3 Chronic kidney disease, stage 3 (moderate); I13.10 Hypertensive heart and chronic kidney disease without heart failure, with stage 1 through stage 4 chronic kidney disease, or unspecified chronic kidney disease; E78.00 Pure hypercholesterolemia, unspecified; I25.2 Old myocardial infarction; Z79.899 Other long term (current) drug therapy; Z79.4 Long term (current) use of insulin; Z86.73 Personal history of transient ischemic attack (TIA), and cerebral infarction without residual deficits; Z95.1 Presence of aortocoronary bypass graft; Z92.3 Personal history of irradiation; Z95.5 Presence of coronary angioplasty implant and graft; Z88.6 Allergy status to analgesic agent; Z88.0 Allergy status to penicillin; Z88.7 Allergy status to serum and vaccine; Z88.8 Allergy status to other drugs, medicaments and biological substances
CPT/HCPCS: 36415; 51702; 71045; 80048; 80053; 81001; 82550; 82553; 82803; 82962; 83605; 83735; 84484; 85025; 85610; 85730; 87040; 87077; 87086; 87088; 87186; 87493; 93005; 93010; 93306; 96361; 96365; 99291; J0360; J0692; J1644; J1815; J1956; J2405; J3490; J7030; J7060; J7120

== ENCOUNTER 2019-02-07 09:10 | Observation (INO) | payer MEDICARE, BC ==
[2019-02-07] MEDS ORDERED: ASPIRIN 81 MG TABLET, CHEWABLE PO ONE (09:21)
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
[2019-02-07 09:40] LABS: ABSOLUTE EOSINOPHILS # (AUTO) 0.2 10^3/uL (0.0-0.6); ABSOLUTE LYMPHOCYTES (AUTO) 1.6 10^3/uL (0.5-4.7); ABSOLUTE MONOCYTES (AUTO) 1.1 10^3/uL (0.1-1.4); ABSOLUTE NEUT (AUTO) 4.2 10^3/uL (1.7-8.2); BASOPHILS % (AUTO) 0.2 % (0-2); EOSINOPHILS % (AUTO) 2.4 % (0-6); HEMATOCRIT 36.6 % (37.9-51.0); HEMOGLOBIN 12.7 g/dL (13.5-17.0); LYMPHOCYTES % (AUTO) 22.5 % (13-45); MEAN CORPUSCULAR HEMOGLOBIN 32.3 pg (27.0-33.4); MEAN CORPUSCULAR HGB CONC 34.6 g/dL (32.0-36.0); MEAN CORPUSCULAR VOLUME 93 fl (80-97); MONOCYTES % (AUTO) 15.1 % (3-13); PLATELET COUNT 347 10^3/uL (150-450); RED BLOOD COUNT 3.92 10^6/uL (4.35-5.55); RED CELL DISTRIBUTION WIDTH 14.4 % (11.5-14.0); SEGMENTED NEUTROPHILS % (AUTO) 59.8 % (42-78); TOTAL CELLS COUNTED % (AUTO) 100 %
--- NOTE | 2019-02-07 09:53 | RADIOLOGY REPORT (SQ) ---
EXAM DESCRIPTION: CHEST 2 VIEWS COMPLETED DATE/TIME: 02/07/2019 9:43 am REASON FOR STUDY: L sided CP COMPARISON: 01/24/2019 EXAM PARAMETERS: NUMBER OF VIEWS: two views TECHNIQUE: Digital Frontal and Lateral radiographic views of the chest acquired. RADIATION DOSE: NA LIMITATIONS: none FINDINGS: LUNGS AND PLEURA: No opacities, masses or pneumothorax. No pleural effusion. MEDIASTINUM AND HILAR STRUCTURES: No masses or contour abnormalities. HEART AND VASCULAR STRUCTURES: Cardiomegaly status post median sternotomy with implantable loop recor chioma. BONES: No acute findings. HARDWARE: None in the chest. OTHER: No other significant finding. IMPRESSION: Cardiomegaly without acute abnormality of the lungs. No focal airspace opacity. TECHNICAL DOCUMENTATION: JOB ID: [id number] [employer]- All Rights Reserved Reading location - IP/workstation name: [email or web address]
[2019-02-07 10:07] LABS: ALANINE AMINOTRANSFERASE 26 U/L (21-72); ALBUMIN 3.6 g/dL (3.5-5.0); ALKALINE PHOSPHATASE 69 U/L (38-126); ANION GAP 8 (5-19); ASPARTATE AMINO TRANSFERASE 30 U/L (17-59); BILIRUBIN,DIRECT 0.5 mg/dL (0.0-0.4); BILIRUBIN,TOTAL 0.8 mg/dL (0.2-1.3); BLOOD UREA NITROGEN 19 mg/dL (7-20); CALCIUM 9.3 mg/dL (8.4-10.2); CARBON DIOXIDE 25 mmol/L (22-30); CHLORIDE 102 mmol/L (98-107); CREATINE KINASE 23 U/L (55-170); GLUCOSE 183 mg/dL (75-110); POTASSIUM 5.1 mmol/L (3.6-5.0); TOTAL PROTEIN 7.7 g/dL (6.3-8.2)
[2019-02-07 10:11] LABS: CREATINE KINASE MB 1.2 ng/mL (<4.55); TROPONIN I 0.02 ng/mL
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
[2019-02-07] MEDS ORDERED: ONDANSETRON 4 MG TAB.RAPDIS PO PRN (12:29)
[2019-02-07] MEDS ORDERED: OXYCODONE-ACETAMINOPHEN 5-325 MG TABLET PO PRN (12:29)
[2019-02-07] MEDS ORDERED: TEMAZEPAM 15 MG CAPSULE PO PRN (12:29)
[2019-02-07] MEDS ORDERED: IPRATROPIUM/ALBUTEROL 0.5-2.5 MG/3 ML AMPUL NEB PRN (12:29)
--- NOTE | 2019-02-07 14:31 | EKG REPORT ---
SEVERITY:- ABNORMAL ECG - SINUS RHYTHM PROLONGED QT INTERVAL : Confirmed by: Joanne Hinkle MD 07-Feb-2019 14:30:48
[2019-02-07] MEDS ORDERED: NITROGLYCERIN 0.4 MG/TAB 25 TAB/BOTTLE SL PRN (16:06)
[2019-02-07] MEDS ORDERED: GABAPENTIN 300 MG CAPSULE PO PRN (16:06)
[2019-02-07] MEDS ORDERED: MECLIZINE HCL 12.5 MG TABLET PO PRN (16:06)
[2019-02-07] MEDS ORDERED: CHLORZOXAZONE 500 MG TABLET PO PRN (16:06)
[2019-02-07] MEDS ORDERED: DIPHENHYDRAMINE HCL 25 MG CAPSULE PO PRN (16:06)
[2019-02-07] MEDS ORDERED: INSULIN ASPART 30 UNIT SUBCUT SCH (16:15)
[2019-02-07] MEDS ORDERED: DEXTROSE 50%-WATER SYRINGE 12.5 GM/25 ML DOSE IV PRN (18:00)
[2019-02-07] MEDS ORDERED: GLUCAGON,HUMAN RECOMB 1 MG INJ IM PRN (18:00)
[2019-02-07] MEDS ORDERED: DEXTROSE 40% GEL 15 GM TUBE X 2 PO PRN (18:00)
[2019-02-07] MEDS ORDERED: DEXTROSE 40% GEL 15 GM TUBE PO PRN (18:00)
[2019-02-07] MEDS ORDERED: DEXTROSE 50%-WATER SYRINGE 25 GM/50 ML DOSE IV PRN (18:00)
[2019-02-07] MEDS: INSULIN LISPRO 100 UNIT/ML 3 ML VIAL SUBCUT SCH (21:39)
[2019-02-07] MEDS: RANOLAZINE 500 MG TAB.SR.12H PO SCH (21:42)
[2019-02-07] MEDS ORDERED: (PENDING PHARMACY ID) (Ranolazine [Ranexa] 1,000 MG) PO SCH (22:00)
[2019-02-07] MEDS ORDERED: FENOFIBRATE 150 MG PO SCH (22:00)
[2019-02-07] MEDS ORDERED: INSULIN GLARGINE,HUM.REC.ANLOG 1,000 UNIT/10 ML VIAL SUBCUT SCH (22:00)
[2019-02-07] MEDS ORDERED: FENOFIBRATE NANOCRYSTALLIZED 145 MG TABLET PO SCH (22:00)
[2019-02-08] MEDS ORDERED: PANTOPRAZOLE SODIUM 20 MG TABLET.DR PO SCH (08:00)
[2019-02-08] MEDS ORDERED: (PENDING PHARMACY ID) (Esomeprazole Magnesium [Nexium] 20 MG) PO SCH (08:00)
[2019-02-08] MEDS ORDERED: ESCITALOPRAM OXALATE 10 MG TABLET PO SCH (10:00)
[2019-02-08] MEDS ORDERED: CYANOCOBALAMIN (VITAMIN B-12) 1,000 MCG TABLET PO SCH (10:00)
[2019-02-08] MEDS ORDERED: CHOLECALCIFEROL (D3) 1,000 UNIT (25 MCG) TABLET PO SCH (10:00)
[2019-02-08] MEDS ORDERED: (PENDING PHARMACY ID) (Cholecalciferol (Vitamin D3) [Vitamin D3 2000 Unit Tablet] 2,000 UN PO SCH (10:00)
[2019-02-08] MEDS ORDERED: FOLIC ACID 1 MG TABLET PO SCH (10:00)
[2019-02-08] MEDS: INSULIN LISPRO 100 UNIT/ML 3 ML VIAL SUBCUT SCH (10:14)
--- NOTE | 2019-02-08 10:17 | PDOC DISCHARGE SUMMARY ---
General - Admit/Disc Date/PCP Admission Date/Primary Care Provider: 02/07/19 12:16 MAE DIA Discharge Date: 02/08/19 - Discharge Diagnosis (1) Chest pain Is this a current diagnosis for this admission?: Yes (2) Type 2 diabetes mellitus Is this a current diagnosis for this admission?: Yes (3) COPD (chronic obstructive pulmonary disease) Is this a current diagnosis for this admission?: Yes (4) Hypertension Is this a current diagnosis for this admission?: Yes (5) Hyperlipidemia Is this a current diagnosis for this admission?: Yes - Additional Information Resuscitation Status: Full Code Home Medications: Cholecalciferol (Vitamin D3) [Vitamin D3 2000 unit Tablet] 2,000 unit PO DAILY 09/13/17 Cyanocobalamin (Vitamin B-12) [Vitamin B-12 1000 mcg Tablet] 1,000 mcg PO DAILY 09/13/17 Diphenhydramine HCl [Benadryl 25 mg Capsule] 25 mg PO BIDP PRN 09/13/17 Escitalopram Oxalate [Lexapro 10 mg Tablet] 10 mg PO DAILY 09/13/17 Fenofibrate [Lipofen] 150 mg PO QHS 09/13/17 Folic Acid [Folvite 1 mg Tablet] 1 mg PO DAILY 09/13/17 Gabapentin [Neurontin 300 mg Capsule] 600 mg PO Q6HP PRN 09/13/17 Insulin Aspart [Novolog Insulin (Aspart) 100 unit/mL] 30 unit SUBCUT .SLIDING SCALE 09/13/17 Insulin Degludec [Tresiba Flextouch U-200] 70 units SUBCUT QHS 09/13/17 Chlorzoxazone [Parafon Forte Dsc 500 mg Tablet] 500 mg PO HSP PRN 01/24/19 Esomeprazole Magnesium [Nexium] 20 mg PO QAM 01/24/19 Nitroglycerin 0.4 mg SL Q5MP PRN 01/24/19 Meclizine HCl [Antivert 12.5 mg Tablet] 12.5 mg PO QIDP PRN 02/07/19 Ranolazine [Ranexa] 1,000 mg PO Q12 02/07/19 Ubidecarenone [Coq-10] 100 mg PO DAILY 02/07/19 History of Present Illness History of Present Illness: PAOLA RODRIGUEZ is a 78 year old male patient with past medical history of coronary artery disease status post quadruple coronary artery bypass graft and 2 stent placement about 2 years ago, chronic suprapubic Sawant catheter, type 2 diabetes mellitus, hypertension, hyperlipidemia, COPD, history of GI bleeding, peripheral arterial disease and history of stroke presented with chief complaint of chest pain. Patient reports this he has been in his usual b aseline state of health up until this morning when we woke up shortly followed by chest pain described as pressure-like nonradiating and it is about 5 out of 10 on severity pain scale. Patient denied any associated shortness of breath, palpitation, diaphoresis, nausea or vomiting. No urinary complaints. His first set of cardiac enzymes negative. Hospital Course Hospital Course: PAOLA RODRIGUEZ is a 78 year old male patient with past medical history of coronary artery disease status post quadruple coronary artery bypass graft and 2 stent placement about 2 years ago, chronic suprapubic Sawant catheter, type 2 diabetes mellitus, hypertension, hyperlipidemia, COPD, history of GI bleeding, peripheral arterial disease and history of stroke presented with chief complaint of chest pain. Patient reports this he has been in his usual baseline state of health up until this morning when we woke up shortly followed by chest pain described as pressure-like nonradiating and it is about 5 out of 10 on severity pain scale. Patient denied any associated shortness of breath, palpitation, diaphoresis, nausea or vomiting. No urinary complaints. His first set of cardiac enzymes negative. 02/12/2019: Patient admitted yesterday for observation of chest pain. Patient remained chest pain-free throughout the night. His EKG and 3 sets of troponins are negative. His vital signs and blood works are unremarkable. 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 Mcgill at [facility] for possible outpatient stress test. I will continue all his medications and patient advised to keep up his appointment. Physical Exam Vital Signs: Temp Pulse Resp BP Pulse Ox 97.9 F 81 16 157/77 H 98 02/08/19 04:03 02/08/19 07:00 02/08/19 04:03 02/08/19 04:03 02/08/19 04:03 Intake & Output 02/07/19 02/08/19 02/09/19 06:59 06:59 06:59 Intake Total 420 Output Total 1050 Balance -630 Weight 73.6 kg General appearance: PRESENT: no acute distress Head exam: PRESENT: atraumatic Neck exam: ABSENT: carotid bruit, JVD, lymphadenopathy, thyromegaly Respiratory exam: PRESENT: clear to auscultation [place]. ABSENT: rales, rhonchi, wheezes GI/Abdominal exam: PRESENT: normal bowel sounds, soft. ABSENT: distended, gu arding, mass, organolmegaly, rebound, tenderness Rectal exam: PRESENT: deferred Neurological exam: PRESENT: alert, awake, oriented to person, oriented to place, oriented to time, oriented to situation Results Laboratory Results: 02/07/19 09:23 02/07/19 09:23 02/07/19 02/07/19 02/07/19 09:23 09:23 13:40 Creatine Kinase 23 L CK-MB (CK-2) 1.20 Troponin I 0.020 0.018 02/07/19 02/08/19 02/08/19 19:06 00:55 06:49 Creatine Kinase CK-MB (CK-2) Troponin I 0.019 0.020 0.018 Impressions: Chest X-Ray 02/07/19 09:29 IMPRESSION: Cardiomegaly without acute abnormality of the lungs. No focal airspace opacity. Qualifiers - * PATIENT BEING DISCHARGED WITH ANY OF THE FOLLOWING DIAGNOSIS: No Acute Heart Failure - Is this a Heart Failure Patient?: No LVEF < 40%?: No- if no continue to question #3 3. Anticoagulant therapy for permanect/persistent/paraoxysmal Afib or Aflutter: N/A Follow-up Appointment scheduled within 7 days?: Yes
[2019-02-08] MEDS: RANOLAZINE 500 MG TAB.SR.12H PO SCH (10:18)
[2019-02-08 10:31] VITALS: BP 144/65
== END 2019-02-08 11:33 | disposition home or self-care (01) ==
LOC: ER 09:10 → EH 12:16 → 4S 14:12
PROVIDERS: ADMIT Internal Medicine; ATTEND Internal Medicine
DX: R07.89 Other chest pain (principal); E11.51 Type 2 diabetes mellitus with diabetic peripheral angiopathy without gangrene; J44.9 Chronic obstructive pulmonary disease, unspecified; I10 Essential (primary) hypertension; E78.5 Hyperlipidemia, unspecified; I25.10 Atherosclerotic heart disease of native coronary artery without angina pectoris; K21.9 Gastro-esophageal reflux disease without esophagitis; I25.2 Old myocardial infarction; Z79.899 Other long term (current) drug therapy; Z79.4 Long term (current) use of insulin; Z95.1 Presence of aortocoronary bypass graft; Z95.5 Presence of coronary angioplasty implant and graft; Z86.73 Personal history of transient ischemic attack (TIA), and cerebral infarction without residual deficits; Z89.422 Acquired absence of other left toe(s); Z89.021 Acquired absence of right finger(s); Z98.890 Other specified postprocedural states
CPT/HCPCS: 93005; 99285; 36415 ×2; 82553; 82962 ×2; 82550; 85025; 80053; 84484 ×2; 71046; 93010; G0378 ×3; A9270 ×9; J3490 ×2; J1815

== ENCOUNTER → 2019-03-04 | Outpatient (CLI) | payer MEDICARE, BC | LOC: LAB 14:49 | PROVIDERS: ATTEND Urology | DX: C61 Malignant neoplasm of prostate (principal) | CPT/HCPCS: 36415; 84153 ==

== ENCOUNTER → 2019-04-29 | Outpatient (CLI) | payer MEDICARE, BC | LOC: LAB 10:36 | PROVIDERS: ATTEND Urology | DX: C61 Malignant neoplasm of prostate (principal) | CPT/HCPCS: 36415; 84153; 84403 ==

== ENCOUNTER 2019-10-25 00:54 | Emergency (ER) | payer MEDICARE, BC ==
[2019-10-25 01:44] VITALS: BP 178/67
[2019-10-25 01:57] LABS: APPEARANCE,URINE CLOUDY; BILIRUBIN,URINE NEGATIVE (NEGATIVE); COLOR,URINE YELLOW; GLUCOSE, URINE 50 mg/dL (NEGATIVE); KETONES,URINE NEGATIVE (NEGATIVE); PROTEIN,URINE 100 mg/dL (NEGATIVE); URINE SPECIFIC GRAVITY 1.013; UROBILINOGEN,URINE NEGATIVE mg/dL (<2.0)
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
[2019-10-25] MEDS ORDERED: LEVOFLOXACIN 750 MG/D5W RTU 750 MG/150 ML RTUPB IV ONE (03:00)
== END 2019-10-25 04:59 | disposition home or self-care (01) ==
LOC: ER 00:54
DX: T83.010A Breakdown (mechanical) of cystostomy catheter, initial encounter (principal); Y84.6 Urinary catheterization as the cause of abnormal reaction of the patient, or of later complication, without mention of misadventure at the time of the procedure; N39.0 Urinary tract infection, site not specified; R31.9 Hematuria, unspecified; I25.10 Atherosclerotic heart disease of native coronary artery without angina pectoris; I10 Essential (primary) hypertension; E11.51 Type 2 diabetes mellitus with diabetic peripheral angiopathy without gangrene; J44.9 Chronic obstructive pulmonary disease, unspecified; Z85.46 Personal history of malignant neoplasm of prostate; Z95.1 Presence of aortocoronary bypass graft; Z95.5 Presence of coronary angioplasty implant and graft; Z88.8 Allergy status to other drugs, medicaments and biological substances; Z88.0 Allergy status to penicillin; Z88.7 Allergy status to serum and vaccine; Z88.6 Allergy status to analgesic agent; Z88.5 Allergy status to narcotic agent
CPT/HCPCS: 99283; 96365; 87086; 87088; 81001; 87186; J1956

== ENCOUNTER → 2019-11-24 | Outpatient (CLI) | payer MEDICARE, BC | LOC: OD 11:12 | PROVIDERS: ATTEND Urology | DX: C61 Malignant neoplasm of prostate (principal) | CPT/HCPCS: 36415; 84153 ==

== ENCOUNTER → 2020-01-20 | Outpatient (CLI) | payer MEDICARE, BC | LOC: OD 11:02 | PROVIDERS: ATTEND Urology | DX: C61 Malignant neoplasm of prostate (principal) | CPT/HCPCS: 36415; 82565; 84153 ==

== ENCOUNTER 2020-01-22 19:03 | Emergency (ER) | payer MEDICARE, BC ==
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
[2020-01-22 22:01] LABS: ABSOLUTE EOSINOPHILS # (AUTO) 0.2 10^3/uL (0.0-0.6); ABSOLUTE MONOCYTES (AUTO) 1.5 10^3/uL (0.1-1.4); ABSOLUTE NEUT (AUTO) 8.5 10^3/uL (1.7-8.2); BASOPHILS % (AUTO) 0.1 % (0-2); EOSINOPHILS % (AUTO) 1.3 % (0-6); HEMATOCRIT 35.8 % (37.9-51.0); HEMOGLOBIN 12.1 g/dL (13.5-17.0); LYMPHOCYTES % (AUTO) 16.7 % (13-45); MEAN CORPUSCULAR HEMOGLOBIN 32.6 pg (27.0-33.4); MEAN CORPUSCULAR HGB CONC 33.8 g/dL (32.0-36.0); MEAN CORPUSCULAR VOLUME 96 fl (80-97); MONOCYTES % (AUTO) 12.2 % (3-13); PLATELET COUNT 417 10^3/uL (150-450); RED BLOOD COUNT 3.71 10^6/uL (4.35-5.55); RED CELL DISTRIBUTION WIDTH 14.9 % (11.5-14.0); SEGMENTED NEUTROPHILS % (AUTO) 69.7 % (42-78); TOTAL CELLS COUNTED % (AUTO) 100 %; WHITE BLOOD COUNT 12.2 10^3/uL (4.0-10.5)
[2020-01-22 22:04] LABS: ALBUMIN 4.2 g/dL (3.5-5.0); ALKALINE PHOSPHATASE 99 U/L (38-126); ANION GAP 9 (5-19); ASPARTATE AMINO TRANSFERASE 44 U/L (17-59); BILIRUBIN,TOTAL 0.5 mg/dL (0.2-1.3); BLOOD UREA NITROGEN 20 mg/dL (7-20); CALCIUM 9.7 mg/dL (8.4-10.2); CARBON DIOXIDE 26 mmol/L (22-30); CHLORIDE 100 mmol/L (98-107); GLUCOSE 126 mg/dL (75-110); POTASSIUM 5.3 mmol/L (3.6-5.0); TOTAL PROTEIN 8.7 g/dL (6.3-8.2)
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
[2020-01-22 23:04] LABS: APPEARANCE,URINE CLOUDY; BILIRUBIN,URINE NEGATIVE (NEGATIVE); COLOR,URINE YELLOW; GLUCOSE, URINE NEGATIVE (NEGATIVE); KETONES,URINE NEGATIVE (NEGATIVE); LEUKOCYTE ESTERASE,URINE LARGE (NEGATIVE); NITRITE,URINE POSITIVE (NEGATIVE); PROTEIN,URINE 100 mg/dL (NEGATIVE); URINE SPECIFIC GRAVITY 1.014; UROBILINOGEN,URINE NEGATIVE mg/dL (<2.0)
[2020-01-22] MEDS ORDERED: LEVOFLOXACIN 750 MG/D5W RTU 750 MG/150 ML RTUPB IV ONE (23:32)
[2020-01-22] MEDS ORDERED: KETOROLAC TROMETHAMINE INJ/PF 30 MG/1 ML SDV IV ONE (23:33)
--- NOTE | 2020-01-22 23:40 | RADIOLOGY REPORT (SQ) ---
CLINICAL INDICATION: abdomin back flank pain after fall. . TECHNIQUE: Contrast enhanced spiral axial CT imaging was obtained of the abdomen and pelvis with multiplanar reconstructions. This exam was performed according to our departmental dose-optimization program, which includes automated exposure control, adjustment of the mA and/or kV according to patient size and/or use of iterative reconstruction techniques. COMPARISON: None. CORRELATION: None. FINDINGS: Abdomen: The lung bases definite chronic change. Dependent atelectasis. The heart is enlarged with postsurgical change. No evidence of pleural or pericardial fluid. The liver is heterogeneous. The gallbladder is nondistended without inflammatory change. The pancreas is unremarkable. The spleen is unremarkable. The adrenals are unremarkable. The kidneys appear grossly normal without evidence of urolithiasis or hydronephrosis. There is no evidence of free air. No free fluid. No bulky adenopathy. Abdominal aorta is calcified but nonaneurysmal. Pelvis: The bowel is nonobstructed. The bowel is unopacified with oral contrast. Pelvic contents demonstrate a suprapubic tube. The appendix is normal. 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 Sclerosis right inferior pubic ramus. Patchy sclerosis right ilium. Patchy sclerosis left ilium. Dense sclerosis T10. IMPRESSION: No acute intra-abdominal process. Osseous metastatic disease. This is sclerotic disease. In a man of this age this is most likely secondary to prostate carcinoma. Is this a known finding?.
[2020-01-23 03:13] VITALS: BP 154/76
== END 2020-01-23 02:00 | disposition home or self-care (01) ==
LOC: ER 19:03
DX: S39.92XA Unspecified injury of lower back, initial encounter (principal); S50.311A Abrasion of right elbow, initial encounter; W17.89XA Other fall from one level to another, initial encounter; Y93.89 Activity, other specified; N30.00 Acute cystitis without hematuria; K59.00 Constipation, unspecified; C61 Malignant neoplasm of prostate; C79.51 Secondary malignant neoplasm of bone; I25.10 Atherosclerotic heart disease of native coronary artery without angina pectoris; I10 Essential (primary) hypertension; E11.51 Type 2 diabetes mellitus with diabetic peripheral angiopathy without gangrene; Z79.899 Other long term (current) drug therapy; Z92.3 Personal history of irradiation; Z88.7 Allergy status to serum and vaccine; Z88.0 Allergy status to penicillin; Z88.8 Allergy status to other drugs, medicaments and biological substances; Z88.6 Allergy status to analgesic agent; Z88.5 Allergy status to narcotic agent
CPT/HCPCS: 99283; 96375; 96365; 36415; 87040; 87086; 85025; 87088; 80053; 81001; 87186; 74177; J1885; J1956

== ENCOUNTER 2020-01-26 20:13 | Emergency (ER) | payer MEDICARE, BC ==
[2020-01-26] MEDS ORDERED: NA PHOS,M-B/NA PHOS,DI-BA (ADULT) 133 ML ENEMA PR ONE (21:38)
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
[2020-01-26 22:53] LABS: ABSOLUTE EOSINOPHILS # (AUTO) 0.1 10^3/uL (0.0-0.6); ABSOLUTE LYMPHOCYTES (AUTO) 1.2 10^3/uL (0.5-4.7); ABSOLUTE MONOCYTES (AUTO) 1.1 10^3/uL (0.1-1.4); ABSOLUTE NEUT (AUTO) 7.7 10^3/uL (1.7-8.2); BASOPHILS % (AUTO) 0.2 % (0-2); EOSINOPHILS % (AUTO) 0.7 % (0-6); HEMATOCRIT 35.4 % (37.9-51.0); HEMOGLOBIN 12.2 g/dL (13.5-17.0); LYMPHOCYTES % (AUTO) 11.6 % (13-45); MEAN CORPUSCULAR HEMOGLOBIN 32.7 pg (27.0-33.4); MEAN CORPUSCULAR HGB CONC 34.4 g/dL (32.0-36.0); MEAN CORPUSCULAR VOLUME 95 fl (80-97); MONOCYTES % (AUTO) 10.9 % (3-13); PLATELET COUNT 357 10^3/uL (150-450); RED BLOOD COUNT 3.72 10^6/uL (4.35-5.55); RED CELL DISTRIBUTION WIDTH 14.5 % (11.5-14.0); SEGMENTED NEUTROPHILS % (AUTO) 76.6 % (42-78); TOTAL CELLS COUNTED % (AUTO) 100 %; WHITE BLOOD COUNT 10.1 10^3/uL (4.0-10.5)
[2020-01-26 23:02] LABS: ALKALINE PHOSPHATASE 93 U/L (38-126); ANION GAP 10 (5-19); ASPARTATE AMINO TRANSFERASE 36 U/L (17-59); BILIRUBIN,DIRECT 0.1 mg/dL (0.0-0.4); BILIRUBIN,TOTAL 0.6 mg/dL (0.2-1.3); BLOOD UREA NITROGEN 21 mg/dL (7-20); CALCIUM 9.2 mg/dL (8.4-10.2); CARBON DIOXIDE 25 mmol/L (22-30); CHLORIDE 98 mmol/L (98-107); GLUCOSE 156 mg/dL (75-110); POTASSIUM 4.7 mmol/L (3.6-5.0); TOTAL PROTEIN 8.2 g/dL (6.3-8.2)
[2020-01-26] MEDS ORDERED: MINERAL OIL 30 ML UDCUP PR ONE (23:23)
[2020-01-27 03:01] VITALS: BP 161/80
== END 2020-01-27 02:55 | disposition home or self-care (01) ==
LOC: ER 20:13
DX: C61 Malignant neoplasm of prostate (principal); K59.01 Slow transit constipation; R19.7 Diarrhea, unspecified; M54.9 Dorsalgia, unspecified; Z79.899 Other long term (current) drug therapy; Z88.0 Allergy status to penicillin; I25.10 Atherosclerotic heart disease of native coronary artery without angina pectoris; I25.2 Old myocardial infarction; I10 Essential (primary) hypertension; J44.9 Chronic obstructive pulmonary disease, unspecified; E11.9 Type 2 diabetes mellitus without complications
CPT/HCPCS: 99283; 36415; 83605; 85025; 80053; A9270 ×2; J3490

== ENCOUNTER 2020-03-16 18:56 | Inpatient (IN) | payer MEDICARE, BC ==
--- NOTE | 2020-03-16 20:30 | RADIOLOGY REPORT (SQ) ---
XR CHEST 1 VIEW HISTORY: Sepsis. COMPARISON: 02/07/2019 FINDINGS: The heart size is within normal limits. There is no pulmonary vascular congestion. There is a patchy opacity at the left lung base. No pleural effusions or pneumothorax. . postsurgical changes of median sternotomy. IMPRESSION: Left lung base focal opacity which may represent pneumonia.
[2020-03-16] MEDS ORDERED: NORMAL SALINE IV ONE (20:36)
[2020-03-16] MEDS ORDERED: CEFEPIME INJ 1 GM VIAL IV ONE (20:36)
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
[2020-03-16] MEDS ORDERED: VANCOMYCIN HCL INJ 1000 MG VIAL IV ONE (20:44)
[2020-03-16 20:48] LABS: HEMATOCRIT 35.1 % (37.9-51.0); HEMOGLOBIN 11.8 g/dL (13.5-17.0); MEAN CORPUSCULAR HEMOGLOBIN 31.9 pg (27.0-33.4); MEAN CORPUSCULAR HGB CONC 33.5 g/dL (32.0-36.0); MEAN CORPUSCULAR VOLUME 95 fl (80-97); PLATELET COUNT 265 10^3/uL (150-450); RED BLOOD COUNT 3.69 10^6/uL (4.35-5.55); RED CELL DISTRIBUTION WIDTH 16.6 % (11.5-14.0)
[2020-03-16 20:55] LABS: VENOUS BLOOD PCO2 34.1 mmHg (35-63); VENOUS BLOOD PH 7.41 (7.30-7.42)
[2020-03-16 20:57] LABS: INTERNATIONAL RATION (INR) 1.09; PROTHROMBIN TIME 14.4 SEC (11.4-15.4)
[2020-03-16 21:02] LABS: ALBUMIN 3.5 g/dL (3.5-5.0); ALKALINE PHOSPHATASE 151 U/L (38-126); ANION GAP 14 (5-19); ASPARTATE AMINO TRANSFERASE 42 U/L (17-59); BILIRUBIN,DIRECT 0.4 mg/dL (0.0-0.4); BILIRUBIN,TOTAL 0.7 mg/dL (0.2-1.3); BLOOD UREA NITROGEN 20 mg/dL (7-20); CALCIUM 8.8 mg/dL (8.4-10.2); CARBON DIOXIDE 20 mmol/L (22-30); CHLORIDE 102 mmol/L (98-107); GLUCOSE 112 mg/dL (75-110); POTASSIUM 3.9 mmol/L (3.6-5.0); TOTAL PROTEIN 7.2 g/dL (6.3-8.2)
[2020-03-16 21:22] LABS: ABSOLUTE LYMPHOCYTES# (MANUAL) 0.8 10^3/uL (0.5-4.7); BAND NEUTROPHILS % (MANUAL) 7 % (3-5); BASOPHILS % (MANUAL) 0 % (0-2); EOSINOPHILS % (MANUAL) 0 % (0-6); LYMPHOCYTES % (MANUAL) 10 % (13-45); MONOCYTES % (MANUAL) 0 % (3-13); SEGMENTED NEUTROPHILS % (MAN) 83 % (42-78); TOTAL CELLS COUNTED 100
[2020-03-16 21:25] LABS: ANISOCYTOSIS 1+; PLATELET COMMENT ADEQUATE; POLYCHROMASIA SLIGHT
[2020-03-17 00:11] LABS: APPEARANCE,URINE TURBID; BILIRUBIN,URINE NEGATIVE (NEGATIVE); COLOR,URINE BROWN; GLUCOSE, URINE NEGATIVE (NEGATIVE); KETONES,URINE TRACE mg/dL (NEGATIVE); PROTEIN,URINE >=500 mg/dL (NEGATIVE); URINE SPECIFIC GRAVITY 1.023
[2020-03-17] MEDS ORDERED: NORMAL SALINE 1000 ML 1,000 ML IV ONE (00:58)
[2020-03-17] MEDS ORDERED: ACETAMINOPHEN 325 MG TABLET PO ONE (01:40)
[2020-03-17] MEDS ORDERED: NOREPINEPHRINE BITARTRATE IV PRN ×2 (04:49)
[2020-03-17] MEDS ORDERED: WATER IV PRN ×2 (04:49)
[2020-03-17] MEDS ORDERED: DEXTROSE 5% IV PRN ×2 (04:49)
[2020-03-17] MEDS ORDERED: NOREPINEPHRINE BITARTRATE INJ/PF 4 MG/4 ML SDV IV ONE ×2 (05:35→06:15)
[2020-03-17] MEDS ORDERED: DEXTROSE 5%-WATER 250 ML with NOREPINEPHRINE BITARTRATE 4 MG IV PRN ×4 (06:16→11:12)
--- NOTE | 2020-03-17 09:37 | EKG REPORT ---
SEVERITY:- ABNORMAL ECG - SINUS TACHYCARDIA VENTRICULAR TRIGEMINY NONSPECIFIC REPOL ABNORMALITY, LATERAL LEADS PROLONGED QT INTERVAL : Confirmed by: Louis Adamson MD 17-Mar-2020 09:37:10
[2020-03-17] MEDS ORDERED: GLUCAGON,HUMAN RECOMB 1 MG INJ IM PRN (11:18)
[2020-03-17] MEDS ORDERED: DEXTROSE 40% GEL 15 GM TUBE PO PRN ×2 (11:18)
[2020-03-17] MEDS ORDERED: DEXTROSE 50%-WATER 25 GM/50 ML DISP.SYRIN IV PRN ×2 (11:18)
[2020-03-17] MEDS ORDERED: ACETAMINOPHEN 325 MG TABLET PO PRN (11:20)
[2020-03-17] MEDS: NORMAL SALINE 1000 ML 1,000 ML IV PRN ×2 (12:46→16:38)
[2020-03-17] MEDS: CEFEPIME 1 GM/D5W RTU 1 GM/50 ML RTUPB IV SCH ×2 (12:47→21:19)
[2020-03-17] MEDS ORDERED: HEPARIN SOD (PORCINE) 5,000 UNIT/ML 1 ML VIAL SUBCUT SCH (14:00)
[2020-03-17] MEDS ORDERED: ASPIRIN 325 MG TABLET PO ONE (16:30)
[2020-03-17] MEDS ORDERED: HEPARIN SOD (PORCINE) 1,000 UNIT/ML 10 ML VIAL IV PRN (16:30)
[2020-03-17] MEDS: HEPARIN SODIUM,PORCINE/D5W 25,000 UNIT/250 ML RTUINJ IV PRN (16:51)
[2020-03-17] MEDS: METOPROLOL TARTRATE 25 MG TABLET PO SCH ×2 (16:52→23:50)
[2020-03-17] MEDS: INSULIN REG, HUMAN 100 UNIT/ML 3 ML VIAL (PYX) SUBCUT SCH ×2 (17:50→21:45)
--- NOTE | 2020-03-17 19:30 | XCELERA REPORT ---
[address] [address] Transthoracic Echocardiogram Report Name: PAOLA RODRIGUEZ Age: 79 yrs Gender: Male : 1940 Patient Status: Inpatient Patient Location: ICU^606^A Study Date: 03/17/2020 06:08 PM History: Eleavated Troponin Height: 70 in Weight: 182 lb BSA: 2.0 m2 Procedure: A complete two-dimensional transthoracic echocardiogram was performed (2D, M-mode, spectral and color flow Doppler). The study was technically difficult with many images being suboptimal in quality. The apical views were difficult to obtain and are suboptimal in quality. Reason For Study: elevated troponin; ACS Previous Evaluation: A previous study was performed on 01/29/2019 LVEF 60%. History: Elevated Troponin. Ordering Physician: LEWIS CATHERINE Performed By: Darlene Zafar Interpretation Summary Left ventricular systolic function is low normal. The Ejection Fraction estimate is 50-55% The right ventricle is mild to moderately dilated. The right ventricular systolic function is mildly reduced. There is a mild amount of mitral regurgitation There is no aortic valve stenosis There is a mild to moderate amount of tricuspid regurgitation There is mild pulmonary hypertension by echo There is no pericardial effusion. MMode/2D Measurements & Calculations RVDd: 4.8 cm LVIDd: 5.3 cm FS: 30.9 % Ao root diam: 3.4 cm IVSd: 0.93 cm LVIDs: 3.6 cm EDV(Teich): 133.6 ml Ao root area: 9.2 cm2 LVPWd: 1.1 cm ESV(Teich): 56.0 ml LA dimension: 4.7 cm EF(Teich): 58.1 % Doppler Measurements & Calculations MV E max jules: MV P1/2t max jules: Ao V2 max: LV V1 max P.6 cm/sec 109.0 cm/sec 166.5 cm/sec 2.1 mmHg MV A max jules: MV P1/2t: 86.6 msec Ao max PG: LV V1 max: 65.9 cm/sec MVA(P1/2t): 2.5 cm2 11.1 mmHg 72.5 cm/sec MV E/A: 1.6 MV dec slope: 368.6 cm/sec2 MV dec time: 0.23 sec PA V2 max: PI end-d jules: TR max jules: MV P1/2t-pr_phl: 76.4 cm/sec 139.0 cm/sec 237.4 cm/sec 86.6 msec PA max P.3 mmHg TR max P.5 mmHg Left Ventricle The left ventricle is grossly normal size. There is mild to moderate concentric left ventricular hypertrophy. Left ventricular systolic function is low normal. The Ejection Fraction estimate is 50-55%. LV diastolic function not assessed. There is borderline global hypokinesis of the left ventricle. Right Ventricle The right ventricle is mild to moderately dilated. The right ventricular systolic function is mildly reduced. Atria The right atrium is normal. The left atrium is mildly dilated. Mitral Valve There is mild to moderate mitral leaflet calcification. There is no evidence of mitral valve prolapse. There is no mitral valve stenosis. There is a mild amount of mitral regurgitation. Aortic Valve The aortic valve is moderately calcified. There is no aortic valvular vegetation. There is no aortic valve stenosis. No aortic regurgitation is present. Tricuspid Valve The tricuspid valve is not well visualized, but is grossly normal. There is no tricuspid valve prolapse. There is no tricuspid stenosis. There is a mild to moderate amount of tricuspid regurgitation. Right ventricular systolic pressure is estimated to be elevated at 30-40mmHg. There is mild pulmonary hypertension by echo. Pulmonic Valve The pulmonic valve is not well seen, but is grossly normal. There is no vegetation on the pulmonic valve. There is no pulmonic valvular stenosis. There is a mild amount of pulmonic regurgitation. Great Vessels The aortic root is normal size. The IVC is dilated and has no respiratory collapse suggesting significantly high central venous pressures. Effusions There is no pericardial effusion. There is no pleural effusion. : LEWIS CATHERINE Anil
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
--- NOTE | 2020-03-17 20:52 | EKG REPORT ---
SEVERITY:- ABNORMAL ECG - SINUS TACHYCARDIA RIGHT BUNDLE BRANCH BLOCK ST DEPRESSION, CONSIDER ISCHEMIA, ANT-LAT LDS : Confirmed by: oLuis Admason MD 17-Mar-2020 20:51:36
[2020-03-17] MEDS: MAGNESIUM SULFATE/D5W 1 GM/100 ML RTUPB IV SCH ×3 (21:18→23:50)
[2020-03-17] MEDS ORDERED: QUETIAPINE FUMARATE 25 MG TABLET PO SCH (23:15)
[2020-03-17] MEDS ORDERED: QUETIAPINE FUMARATE 25 MG TABLET PO ONE (23:30)
[2020-03-18] MEDS ORDERED: ATORVASTATIN CALCIUM 40 MG TABLET PO ONE (00:45)
[2020-03-18] MEDS ORDERED: CLOPIDOGREL BISULFATE 300 MG TABLET PO ONE (01:00)
[2020-03-18] MEDS ORDERED: MAGNESIUM SULFATE/D5W 1 GM/100 ML RTUPB IV ONE ×2 (01:12→01:30)
[2020-03-18] MEDS ORDERED: ACETAMINOPHEN 325 MG TABLET PO PRN (01:23)
[2020-03-18] MEDS ORDERED: METOPROLOL TARTRATE 25 MG TABLET PO ONE (03:15)
[2020-03-18 04:02] LABS: HEMOGLOBIN 10.3 g/dL (13.5-17.0); MEAN CORPUSCULAR HEMOGLOBIN 32.1 pg (27.0-33.4); MEAN CORPUSCULAR HGB CONC 33.4 g/dL (32.0-36.0); MEAN CORPUSCULAR VOLUME 96 fl (80-97); PLATELET COUNT 197 10^3/uL (150-450); RED BLOOD COUNT 3.22 10^6/uL (4.35-5.55); RED CELL DISTRIBUTION WIDTH 17.1 % (11.5-14.0)
[2020-03-18 04:23] LABS: ANION GAP 12 (5-19); BLOOD UREA NITROGEN 25 mg/dL (7-20); CALCIUM 7.9 mg/dL (8.4-10.2); CARBON DIOXIDE 18 mmol/L (22-30); CHLORIDE 103 mmol/L (98-107); GLUCOSE 195 mg/dL (75-110); PHOSPHORUS 3.7 mg/dL (2.5-4.5); POTASSIUM 4.3 mmol/L (3.6-5.0)
[2020-03-18 04:24] LABS: WHITE BLOOD COUNT 23.5 10^3/uL (4.0-10.5)
[2020-03-18 04:28] LABS: ABSOLUTE LYMPHOCYTES# (MANUAL) 1.2 10^3/uL (0.5-4.7); ABSOLUTE MONOCYTES # (MANUAL) 0.2 10^3/uL (0.1-1.4); BAND NEUTROPHILS % (MANUAL) 6 % (3-5); BASOPHILS % (MANUAL) 0 % (0-2); EOSINOPHILS % (MANUAL) 0 % (0-6); LYMPHOCYTES % (MANUAL) 5 % (13-45); MONOCYTES % (MANUAL) 1 % (3-13); SEGMENTED NEUTROPHILS % (MAN) 88 % (42-78); TOTAL CELLS COUNTED 100; TROPONIN I 5.19 ng/mL
[2020-03-18 04:29] LABS: ANISOCYTOSIS 1+; PLATELET COMMENT ADEQUATE; TOXIC GRANULATION 1+; TOXIC VACUOLATION PRESENT
[2020-03-18 04:30] LABS: POLYCHROMASIA SLIGHT
[2020-03-18] MEDS: METOPROLOL TARTRATE 25 MG TABLET PO SCH ×3 (05:39→17:49)
[2020-03-18] MEDS: PANTOPRAZOLE SODIUM 40 MG TABLET.DR PO SCH (05:39)
[2020-03-18 08:44] LABS: C DIFFICILE GDH NEGATIVE (NEGATIVE)
[2020-03-18] MEDS: CEFEPIME 1 GM/D5W RTU 1 GM/50 ML RTUPB IV SCH ×2 (09:09→22:12)
[2020-03-18] MEDS: INSULIN REG, HUMAN 100 UNIT/ML 3 ML VIAL (PYX) SUBCUT SCH ×4 (09:09→22:03)
[2020-03-18] MEDS: CLOPIDOGREL BISULFATE 75 MG TABLET PO SCH (09:09)
[2020-03-18] MEDS: ASPIRIN 81 MG TABLET, CHEWABLE PO SCH (09:09)
--- NOTE | 2020-03-18 12:34 | PDOC CRITICAL CARE PROG REPORT ---
General Date:: 03/18/20 ICU Day:: 2 Hospital Day:: 2 Resuscitation Status: Full Code Events in the past 12 to 24 Hours:: This 79-year-old male was admitted on 03/17/2020 after presenting with complaints of fever, chills, cough and purulent urine. He was hypotensive on presentation. He was started on IV fluid administration and norepinephrine infusion. He is a PUI for COVID-19. 03/18: E. coli bacteremia. Urine is isolating gram-negative rods and gram- positive cocci in chains. On cefepime. Off pressors. No respiratory distress. Mentating well. Denies chest pain but was found to have significant elevation in troponin in the interim with some nonspecific ischemic changes in the lateral leads. Troponin peaked at (0.068>)7.7 and is now downtrending. On aspirin, Plavix, heparin, statin and beta-blockade as tolerated. Review of systems relevant to events:: Cardiovascular: Hypotension/shock (multifactorial), non-STEMI, septic shock/E. coli bacteremia. Genitourinary: Suprapubic catheter, urinary tract infection, prostate cancer Reason for ICU Addmission:: septic shock - Medications: Medications reviewed and adjusted accordingly: Yes Physical Exam Vital Signs: Temp Pulse Resp BP Pulse Ox 98.6 F 84 26 H 136/78 H 99 03/18/20 12:00 03/18/20 12:00 03/18/20 12:00 03/18/20 12:00 03/18/20 12:00 Intake & Output 03/17/20 03/18/20 03/19/20 06:59 06:59 06:59 Intake Total 4060 2678 50 Output Total 2245 0 Balance 4060 433 50 Weight 83.5 kg 87 kg Weight/Height Weight 87 kg Height 1.78 m General appearance: PRESENT: no acute distress, well-developed, well-nourished Head exam: PRESENT: atraumatic, normocephalic Eye exam: PRESENT: conjunctiva pink, EOMI, PERRLA. ABSENT: scleral icterus Mouth exam: PRESENT: moist, tongue midline Neck exam: ABSENT: carotid bruit, JVD, lymphadenopathy, thyromegaly Respiratory exam: PRESENT: crackles. ABSENT: rales, rhonchi, wheezes Cardiovascular exam: PRESENT: RRR, systolic murmur Pulses: PRESENT: normal dorsalis pedis pul GI/Abdominal exam: PRESENT: normal bowel sounds, soft. ABSENT: distended, guarding, mass, organolmegaly, rebound, tenderness Gentrourinary exam: PRESENT: indwelling catheter Extremities exam: PRESENT: full ROM. ABSENT: calf tenderness, clubbing, pedal edema Neurological exam: PRESENT: alert, awake, oriented to person, oriented to place, oriented to time, oriented to situation, CN II-XII grossly intact. ABSENT: motor sensory deficit Psychiatric exam: PRESENT: appropriate affect, normal mood. ABSENT: homicidal ideation, suicidal ideation Skin exam: PRESENT: dry, intact, warm. ABSENT: cyanosis, rash Laboratory/Radiographs Laboratory Results: 03/18/20 03:45 03/18/20 03:45 03/17/20 03/17/20 03/17/20 13:20 14:35 17:42 WBC RBC Hgb Hct MCV MCH MCHC RDW Plt Count Seg Neutrophils % Sodium Potassium Chloride Carbon Dioxide Anion Gap BUN Creatinine Est GFR ( Amer) Glucose Lactic Acid 3.9 H 2.8 H Calcium Phosphorus Magnesium 1.4 L 03/17/20 03/17/20 03/18/20 22:43 22:43 03:45 WBC RBC Hgb Hct MCV MCH MCHC RDW Plt Count Seg Neutrophils % Sodium 132.9 L Potassium 4.4 4.3 Chloride 103 Carbon Dioxide 18 L Anion Gap 12 BUN 25 H Creatinine 1.45 H Est GFR ( Amer) 57 L Glucose 195 H Lactic Acid Calcium 7.9 L Phosphorus 3.7 Magnesium 1.8 2.7 H 03/18/20 03:45 WBC 23.5 H D RBC 3.22 L Hgb 10.3 L Hct 31.0 L MCV 96 MCH 32.1 MCHC 33.4 RDW 17.1 H Plt Count 197 Seg Neutrophils % Not Reportable Sodium Potassium Chloride Carbon Dioxide Anion Gap BUN Creatinine Est GFR ( Amer) Glucose Lactic Acid Calcium Phosphorus Magnesium 03/16/20 20:50 Blood Blood Culture (PCR) - Final Escherichia Coli 03/16/20 20:10 Blood Blood Culture (PCR) - Final Escherichia Coli 03/16/20 03/17/20 03/17/20 20:10 13:20 14:35 Troponin I 0.068 Cancelled 7.270 NT-Pro-B Natriuret Pep 03/17/20 03/17/20 03/18/20 19:55 22:43 03:45 Troponin I 7.730 7.150 5.190 NT-Pro-B Natriuret Pep 40302 H Impressions: Chest X-Ray 03/16/20 19:08 IMPRESSION: Left lung base focal opacity which may represent pneumonia. All labs, radiographs, diagnostic studies and EKGs were personally reviewed: Yes In addition, reports of radiographic and diagnostic studies were read: Yes Assessment and Plan - Diagnosis (1) Septic shock Is this a current diagnosis for this admission?: Yes Plan: On cefepime. Should provide effective coverage for E. coli bacteremia. Gram-positive cocci in chains in the urine is suspicious for enterococcus. Will empirically add vancomycin, pending final identification. (2) NSTEMI (non-ST elevated myocardial infarction) Is this a current diagnosis for this admission?: Yes Plan: The patient is established with Dr. Christos Mcgill, who apparently has Dr. Ottoniel Porter cover his inpatient consults. It is come to my attention that Dr. Porter is currently not available. His office suggested that we consult cardiology head of precision targeting. On aspirin and Plavix. On heparin infusion. On statin. Beta-blockade as tolerated. (3) Gram-negative bacteremia Is this a current diagnosis for this admission?: Yes (4) Acute kidney injury Is this a current diagnosis for this admission?: Yes (5) Suprapubic catheter Is this a current diagnosis for this admission?: Yes (6) Insulin dependent type 2 diabetes mellitus, controlled Is this a current diagnosis for this admission?: Yes (7) Long QT interval Is this a current diagnosis for this admission?: Yes (8) Abnormal EKG Is this a current diagnosis for this admission?: Yes (9) Prostate cancer Is this a current diagnosis for this admission?: Yes Plan Summary: OK to transfer to [facility] from pulmonary standpoint. Critical Time Critical Time (minutes): 60 Level of Care: ICU -: 1. The care of a critical patient is a dynamic process. This note is a textiles sales representative synopsis but static in nature. The timeframe for treatments given in order is not necessarily the actual time these treatments may have been done. 2. This patient requires critical care secondary to ongoing requirements for therapy not offered or safe outside the critical care environment. Transfer to a lower level of care will result in altered life or limb morbidity and mortality. 3. Multidisciplinary rounds completed. 4. ABCDE bundle addressed.
[2020-03-18] MEDS ORDERED: VANCOMYCIN HCL 0 MG in DEXTROSE 5%-WATER 250 ML IV NR (12:45)
--- NOTE | 2020-03-18 12:46 | EKG REPORT ---
SEVERITY:- ABNORMAL ECG - SINUS RHYTHM PVC INCOMPLETE RIGHT BUNDLE BRANCH BLOCK BORDERLINE ST DEPRESSION, LATERAL LEADS : Confirmed by: Louis Adamson MD 18-Mar-2020 12:45:14
[2020-03-18] MEDS: HEPARIN SODIUM,PORCINE/D5W 25,000 UNIT/250 ML RTUINJ IV PRN (15:08)
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
[2020-03-18] MEDS ORDERED: NITROGLYCERIN 0.4 MG/TAB 25 TAB/BOTTLE SL PRN (15:49)
[2020-03-18] MEDS ORDERED: NORMAL SALINE 1000 ML 1,000 ML IV PRN (16:11)
--- NOTE | 2020-03-18 16:17 | PDOC PROGRESS REPORT ---
Subjective Progress Note for:: 03/18/20 Subjective:: Received signout from multimedia producer Briefly, patient is an 79-year-old male with a history of coronary arterial disease status post CABG in 2001, indwelling Sawant, prostate cancer, who was admitted to the hospital for septic shock secondary to UTI. Patient was only br iefly on pressors and actually was taking of Levophed shortly after arriving in the ICU. He was also noted to have an NSTEMI with troponin going as high as 7. EKG did show changes suggestive of myocardial ischemia. Patient treated medically with heparin drip, aspirin and Plavix. Patient developed bacteremia with E. coli. Urine culture growing gram-negative mikala and gram-positive cocci as well. Patient's blood pressure has been stable and he is ready for transition to the medical floor. On assessment today, patient denies any fever or chills. He does complain of insomnia. States he needs something to help him with sleeping tonight. Admits to history of CABG in 2001. States he has no stents in his heart. He was evaluated by her community living instructor today. Reason For Visit: SEPTIC SHOCK,ACUTE KIDNEY INJURY Physical Exam Vital Signs: Temp Pulse Resp BP Pulse Ox 98.6 F 84 21 H 135/88 H 100 03/18/20 12:00 03/18/20 14:00 03/18/20 14:00 03/18/20 14:00 03/18/20 14:00 Intake & Output 03/17/20 03/18/20 03/19/20 06:59 06:59 06:59 Intake Total 4060 2678 132 Output Total 2245 0 Balance 4060 433 132 Weight 83.5 kg 87 kg General appearance: PRESENT: no acute distress, cooperative Neck exam: ABSENT: JVD Respiratory exam: PRESENT: clear to auscultation carrington, unlabored. ABSENT: tachy pnea, wheezes Cardiovascular exam: PRESENT: +S1, +S2. ABSENT: tachycardia GI/Abdominal exam: PRESENT: soft. ABSENT: tenderness Neurological exam: PRESENT: alert, awake Results Laboratory Results: 03/18/20 03:45 03/18/20 03:45 03/17/20 03/17/20 03/17/20 17:42 22:43 22:43 WBC RBC Hgb Hct MCV MCH MCHC RDW Plt Count Seg Neutrophils % Sodium Potassium 4.4 Chloride Carbon Dioxide Anion Gap BUN Creatinine Est GFR ( Amer) Glucose Lactic Acid 2.8 H Calcium Phosphorus Magnesium 1.8 03/18/20 03/18/20 03:45 03:45 WBC 23.5 H D RBC 3.22 L Hgb 10.3 L Hct 31.0 L MCV 96 MCH 32.1 MCHC 33.4 RDW 17.1 H Plt Count 197 Seg Neutrophils % Not Reportable Sodium 132.9 L Potassium 4.3 Chloride 103 Carbon Dioxide 18 L Anion Gap 12 BUN 25 H Creatinine 1.45 H Est GFR ( Amer) 57 L Glucose 195 H Lactic Acid Calcium 7.9 L Phosphorus 3.7 Magnesium 2.7 H 03/16/20 20:50 Blood Blood Culture (PCR) - Final Escherichia Coli 03/16/20 20:10 Blood Blood Culture (PCR) - Final Escherichia Coli 03/16/20 03/17/20 03/17/20 20:10 13:20 14:35 Troponin I 0.068 Cancelled 7.270 NT-Pro-B Natriuret Pep 03/17/20 03/17/20 03/18/20 19:55 22:43 03:45 Troponin I 7.730 7.150 5.190 NT-Pro-B Natriuret Pep 91767 H Impressions: Chest X-Ray 03/16/20 19:08 IMPRESSION: Left lung base focal opacity which may represent pneumonia. Assessment and Plan - Diagnosis (1) E coli bacteremia Is this a current diagnosis for this admission?: Yes Plan: Continue cefepime. Repeat blood cultures. Awaiting sensitivity report. (2) Complicated UTI (urinary tract infection) Is this a current diagnosis for this admission?: Yes Plan: Indwelling suprapubic catheter. Urine culture growing gram-negative mikala likely E. coli, and gram-positive. Awaiting identification. Continue cefepime. Vancomycin added today given gram-positive. (3) NSTEMI (non-ST elevated myocardial infarction) Is this a current diagnosis for this admission?: Yes Plan: Evaluated by community living instructor Dr. Adamson who recommends medical therapy only at this point. He does have history of coronary artery disease with CABG in 2001. Follows with Dr. Mcgill at [place]. Echocardiogram showing some diastolic dysfunction, normal EF, RV dilation and borderline global hypokinesis of LV Continue aspirin, Plavix, beta-uliecs and statin. Heparin infusion for 48 hours total to be completed tomorrow. (4) Lactic acidosis Is this a current diagnosis for this admission?: Yes Plan: Secondary to sepsis. Lactic acid still elevated but has improved from 5>>2.8. Will place patient on very gentle hydration IV through the night and recheck lactic acid in the morning. (5) Prostate cancer Is this a current diagnosis for this admission?: Yes (6) Type 2 diabetes mellitus Is this a current diagnosis for this admission?: Yes Plan: Home regimen: Aspart sliding scale, Tresiba 70 units nightly Currently only on sliding scale insulin and blood glucose have been within acceptable range. We will monitor with Accu-Cheks. Will resume Lantus regimen gradually. (7) Septic shock Is this a current diagnosis for this admission?: Yes Plan: Resolved - Time Time Spent with patient: 25-34 minutes Anticipated Discharge Disposition: Home, Self Care Anticipated Discharge Timeframe: within 72 hours
[2020-03-18] MEDS ORDERED: LOPERAMIDE HCL 2 MG CAPSULE PO PRN (17:16)
[2020-03-18] MEDS ORDERED: LOPERAMIDE HCL 2 MG CAPSULE PO ONE (17:16)
[2020-03-18] MEDS ORDERED: VANCOMYCIN HCL 1,000 MG in DEXTROSE 5%-WATER 250 ML IV SCH (22:00)
[2020-03-18] MEDS: GABAPENTIN 300 MG CAPSULE PO SCH (22:04)
[2020-03-18] MEDS: RANOLAZINE 500 MG TAB.SR.12H PO SCH (22:04)
[2020-03-18] MEDS: ATORVASTATIN CALCIUM 40 MG TABLET PO SCH (22:05)
[2020-03-18] MEDS ORDERED: INSULIN GLARGINE,HUM.REC.ANLOG 1,000 UNIT/10 ML VIAL (PYX) SUBCUT ONE (23:25)
[2020-03-18] MEDS ORDERED: VANCOMYCIN HCL INJ 1000 MG VIAL ONE (23:26)
[2020-03-18] MEDS: INSULIN GLARGINE,HUM.REC.ANLOG 1,000 UNIT/10 ML VIAL SUBCUT SCH (23:30)
[2020-03-19] MEDS: DIPHENHYDRAMINE HCL 25 MG CAPSULE PO PRN ×2 (00:21→21:42)
[2020-03-19] MEDS: METOPROLOL TARTRATE 25 MG TABLET PO SCH ×3 (00:23→12:05)
[2020-03-19] MEDS: PANTOPRAZOLE SODIUM 40 MG TABLET.DR PO SCH (05:56)
[2020-03-19 07:19] LABS: ANION GAP 9 (5-19); BLOOD UREA NITROGEN 22 mg/dL (7-20); CARBON DIOXIDE 21 mmol/L (22-30); CHLORIDE 103 mmol/L (98-107); CHOLESTEROL 133.91 mg/dL (0-200); GLUCOSE 179 mg/dL (75-110); POTASSIUM 3.9 mmol/L (3.6-5.0); TRIGLYCERIDES 264 mg/dL (<150)
[2020-03-19 07:24] LABS: HEMATOCRIT 31.6 % (37.9-51.0); HEMOGLOBIN 10.7 g/dL (13.5-17.0); MEAN CORPUSCULAR HGB CONC 33.7 g/dL (32.0-36.0); MEAN CORPUSCULAR VOLUME 95 fl (80-97); PLATELET COUNT 162 10^3/uL (150-450); RED BLOOD COUNT 3.33 10^6/uL (4.35-5.55); RED CELL DISTRIBUTION WIDTH 16.9 % (11.5-14.0); WHITE BLOOD COUNT 18.1 10^3/uL (4.0-10.5)
[2020-03-19 07:29] LABS: DIRECT LDL 68 mg/dL (<100)
[2020-03-19 07:41] LABS: VLDL CHOLESTEROL 52.8 mg/dL (10-31)
[2020-03-19 08:20] LABS: ABSOLUTE LYMPHOCYTES# (MANUAL) 1.3 10^3/uL (0.5-4.7); ABSOLUTE MONOCYTES # (MANUAL) 1.8 10^3/uL (0.1-1.4); BAND NEUTROPHILS % (MANUAL) 1 % (3-5); BASOPHILS % (MANUAL) 0 % (0-2); EOSINOPHILS % (MANUAL) 1 % (0-6); LYMPHOCYTES % (MANUAL) 7 % (13-45); MONOCYTES % (MANUAL) 10 % (3-13); NUCLEATED RED BLOOD CELLS 1 /100 WBC (0); SEGMENTED NEUTROPHILS % (MAN) 81 % (42-78); TOTAL CELLS COUNTED 100
[2020-03-19 08:21] LABS: ANISOCYTOSIS 1+; PLATELET COMMENT ADEQUATE; TOXIC GRANULATION 1+; TOXIC VACUOLATION PRESENT
[2020-03-19] MEDS: INSULIN REG, HUMAN 100 UNIT/ML 3 ML VIAL (PYX) SUBCUT SCH ×4 (08:50→21:49)
[2020-03-19] MEDS: FOLIC ACID 1 MG TABLET PO SCH (10:07)
[2020-03-19] MEDS: GABAPENTIN 300 MG CAPSULE PO SCH ×2 (10:07→21:43)
[2020-03-19] MEDS: CLOPIDOGREL BISULFATE 75 MG TABLET PO SCH (10:07)
[2020-03-19] MEDS: ASPIRIN 81 MG TABLET, CHEWABLE PO SCH (10:07)
[2020-03-19] MEDS: CHOLECALCIFEROL (D3) 1,000 UNIT (25 MCG) TABLET PO SCH (10:07)
[2020-03-19] MEDS: CYANOCOBALAMIN (VITAMIN B-12) 1,000 MCG TABLET PO SCH (10:07)
[2020-03-19] MEDS: ESCITALOPRAM OXALATE 10 MG TABLET PO SCH (10:07)
[2020-03-19] MEDS: RANOLAZINE 500 MG TAB.SR.12H PO SCH ×2 (10:07→21:43)
[2020-03-19] MEDS ORDERED: CEFAZOLIN 2 GM/D5W RTU 2 GM/50 ML RTUPB IV SCH (12:00)
[2020-03-19] MEDS ORDERED: ONDANSETRON HCL INJ/PF 4 MG/2 ML SDV ONE (12:29)
[2020-03-19] MEDS: CEFAZOLIN SODIUM 2 GM in DEXTROSE 5%-WATER 100 ML IV SCH ×2 (12:30→18:20)
[2020-03-19] MEDS ORDERED: ONDANSETRON HCL INJ/PF 4 MG/2 ML SDV IV PRN (12:50)
[2020-03-19] MEDS ORDERED: MELATONIN 3 MG TABLET PO PRN (17:14)
--- NOTE | 2020-03-19 17:26 | PDOC PROGRESS REPORT ---
Subjective Progress Note for:: 03/19/20 Subjective:: Patient feels quite well this morning. He talked about needing something to help him sleep. States the Benadryl was not enough last night. Denies fever or chills. States he gets around fine. Reason For Visit: SEPTIC SHOCK,ACUTE KIDNEY INJURY Physical Exam Vital Signs: Temp Pulse Resp BP Pulse Ox 97.5 F 73 20 120/62 98 03/19/20 11:36 03/19/20 11:36 03/19/20 11:36 03/19/20 11:36 03/19/20 11:36 Intake & Output 03/18/20 03/19/20 03/20/20 06:59 06:59 06:59 Intake Total 2678 1571 340 Output Total 2245 1500 Balance 433 71 340 Weight 87 kg 87.2 kg General appearance: PRESENT: no acute distress, cooperative Neck exam: ABSENT: JVD Respiratory exam: PRESENT: clear to auscultation carrington, symmetrical, unlabored. ABSENT: stridor, tachypnea Cardiovascular exam: PRESENT: RRR, +S1, +S2. ABSENT: tachycardia GI/Abdominal exam: PRESENT: soft. ABSENT: rebound, rigid, tenderness Gentrourinary exam: PRESENT: indwelling catheter - Suprapubic Neurological exam: PRESENT: alert, awake, oriented to person, oriented to place, oriented to time, oriented to situation Results Laboratory Results: 03/19/20 06:05 03/19/20 06:05 03/19/20 03/19/20 03/19/20 06:05 06:05 06:05 WBC 18.1 H RBC 3.33 L Hgb 10.7 L Hct 31.6 L MCV 95 MCH 32.0 MCHC 33.7 RDW 16.9 H Plt Count 162 Seg Neutrophils % Not Reportable Sodium 133.4 L Potassium 3.9 Chloride 103 Carbon Dioxide 21 L Anion Gap 9 BUN 22 H Creatinine 1.05 Est GFR ( Amer) > 60 Glucose 179 H Lactic Acid 2.4 H Calcium 8.0 L Magnesium 2.2 Triglycerides 264 H Cholesterol 133.91 LDL Cholesterol Direct 68 VLDL Cholesterol 52.8 H HDL Cholesterol 17 L 03/18/20 16:39 Blood Blood Culture (PCR) - Final Staphylococcus Species 03/18/20 16:50 Blood Blood Culture (PCR) - Final Staphylococcus Species 03/16/20 20:50 Blood Blood Culture (PCR) - Final Escherichia Coli 03/16/20 20:50 Blood Blood Culture - Final Escherichia Coli 03/16/20 20:10 Blood Blood Culture (PCR) - Final Escherichia Coli 03/16/20 20:10 Blood Blood Culture - Final Escherichia Coli 03/16/20 23:35 Clean Catch Midstream Urine Culture - Final Escherichia Coli Enterococcus Faecalis(Group D) 03/16/20 03/17/20 03/17/20 20:10 13:20 14:35 Troponin I 0.068 Cancelled 7.270 NT-Pro-B Natriuret Pep 03/17/20 03/17/20 03/18/20 19:55 22:43 03:45 Troponin I 7.730 7.150 5.190 NT-Pro-B Natriuret Pep 91315 H 03/18/20 15:21 Troponin I 2.630 NT-Pro-B Natriuret Pep Impressions: Chest X-Ray 03/16/20 19:08 IMPRESSION: Left lung base focal opacity which may represent pneumonia. Assessment and Plan - Diagnosis (1) E coli bacteremia Is this a current diagnosis for this admission?: Yes Plan: Secondary to UTI. Antibiotics switched from cefepime to cefazolin IV. Continue IV antibiotics for now. Repeat blood culture showing no growth of E. coli currently. (2) Complicated UTI (urinary tract infection) Is this a current diagnosis for this admission?: Yes Plan: Secondary to E. coli and enterococcus. Indwelling suprapubic catheter. Cef azolin and vancomycin. (3) NSTEMI (non-ST elevated myocardial infarction) Is this a current diagnosis for this admission?: Yes Plan: Evaluated by chair upholsterer Dr. Adamson who recommends medical therapy only at this point. He does have history of coronary artery disease with CABG in 2001. Follows with Dr. Christos Mcgill at [place]. Echocardiogram showing some diastolic dysfunction, normal EF, RV dilation and borderline global hypokinesis of LV Continue aspirin, Plavix, Lopressor, atorvastatin, and Ranexa. Completed 48 hours of heparin infusion this evening. (4) Positive blood culture Is this a current diagnosis for this admission?: Yes Plan: Repeat blood cultures obtained yesterday and today shows no growth of E. coli but now incidentally picked up Staphylococcus species in 1of 2 bottles from both sets. This possibly could be a contaminant but we will repeat blood cultures today and continue vancomycin for the meantime. (5) Lactic acidosis Is this a current diagnosis for this admission?: Yes Plan: Secondary to sepsis. Lactic acid still remains minimally elevated despite gentle hydration overnight. May be secondary to malignancy at this point. Will recheck in the morning. Currently sepsis has resolved. (6) Prostate cancer Is this a current diagnosis for this admission?: Yes Plan: History of prostate cancer with radiation therapy administered many years ago but had recurrence a few years ago. Darolutamide will remain on hold given acute infection until patient follows up with Dr. Paul Diaz [urologist] in the office upon discharge. (7) Acute kidney injury Is this a current diagnosis for this admission?: Yes Plan: Resolved with gentle hydration. Creatinine seems to now be at his baseline. Monitor renal function. Avoid nephrotoxic meds. (8) Insomnia Qualifiers: Insomnia type: adjustment Qualified Code(s): F51.02 - Adjustment insomnia Is this a current diagnosis for this admission?: Yes Plan: Takes Benadryl at home which is being continued. We will add some melatonin. (9) Type 2 diabetes mellitus Is this a current diagnosis for this admission?: Yes Plan: Home regimen: Aspart sliding scale, Tresiba 70 units nightly Currently only on sliding scale insulin and blood glucose have been within acceptable range. Currently requiring much less dose of Lantus 15 units nightly as he is consuming less food due to taste. (10) Septic shock Is this a current diagnosis for this admission?: Yes Plan: Secondary to E. coli infection. Sepsis currently resolved. COVID-19 negative. - Time Time Spent with patient: 15-24 minutes Anticipated Discharge Disposition: Home, Self Care Anticipated Discharge Timeframe: within 72 hours
[2020-03-19] MEDS: LEVALBUTEROL HCL NEB 1.25 MG/3 ML AMPUL NEB PRN (21:13)
[2020-03-19] MEDS: ATORVASTATIN CALCIUM 40 MG TABLET PO SCH (21:42)
[2020-03-19] MEDS: METOPROLOL TARTRATE 50 MG TABLET PO SCH (21:42)
[2020-03-19] MEDS: INSULIN GLARGINE,HUM.REC.ANLOG 1,000 UNIT/10 ML VIAL SUBCUT SCH (21:44)
[2020-03-19] MEDS: MELATONIN 3 MG TABLET PO SCH (21:52)
[2020-03-19] MEDS ORDERED: METOPROLOL TARTRATE 25 MG TABLET PO SCH (22:00)
[2020-03-19] MEDS: VANCOMYCIN HCL 750 MG in DEXTROSE 5%-WATER 250 ML IV SCH (22:15)
[2020-03-20] MEDS: CEFAZOLIN SODIUM 2 GM in DEXTROSE 5%-WATER 100 ML IV SCH ×4 (00:05→17:46)
[2020-03-20] MEDS: PANTOPRAZOLE SODIUM 40 MG TABLET.DR PO SCH (05:37)
[2020-03-20] MEDS: LEVALBUTEROL HCL NEB 1.25 MG/3 ML AMPUL NEB PRN ×2 (08:08→18:07)
[2020-03-20] MEDS: INSULIN REG, HUMAN 100 UNIT/ML 3 ML VIAL (PYX) SUBCUT SCH ×4 (08:16→21:48)
[2020-03-20 08:31] LABS: HEMATOCRIT 28.2 % (37.9-51.0); HEMOGLOBIN 9.6 g/dL (13.5-17.0); MEAN CORPUSCULAR HEMOGLOBIN 31.8 pg (27.0-33.4); MEAN CORPUSCULAR HGB CONC 33.9 g/dL (32.0-36.0); MEAN CORPUSCULAR VOLUME 94 fl (80-97); PLATELET COUNT 178 10^3/uL (150-450); RED BLOOD COUNT 3.01 10^6/uL (4.35-5.55); RED CELL DISTRIBUTION WIDTH 17.1 % (11.5-14.0); WHITE BLOOD COUNT 13.9 10^3/uL (4.0-10.5)
[2020-03-20 08:34] LABS: ANION GAP 8 (5-19); BLOOD UREA NITROGEN 26 mg/dL (7-20); CALCIUM 7.8 mg/dL (8.4-10.2); CARBON DIOXIDE 22 mmol/L (22-30); CHLORIDE 103 mmol/L (98-107); GLUCOSE 113 mg/dL (75-110); POTASSIUM 4.5 mmol/L (3.6-5.0)
[2020-03-20 08:50] LABS: ABSOLUTE LYMPHOCYTES# (MANUAL) 1.9 10^3/uL (0.5-4.7); ABSOLUTE MONOCYTES # (MANUAL) 1.1 10^3/uL (0.1-1.4); BASOPHILS % (MANUAL) 0 % (0-2); EOSINOPHILS % (MANUAL) 2 % (0-6); LYMPHOCYTES % (MANUAL) 14 % (13-45); MONOCYTES % (MANUAL) 8 % (3-13); SEGMENTED NEUTROPHILS % (MAN) 76 % (42-78); TOTAL CELLS COUNTED 100
[2020-03-20 08:51] LABS: ANISOCYTOSIS 1+; PLATELET COMMENT ADEQUATE; PLATELET LARGE PRESENT
[2020-03-20] MEDS: RANOLAZINE 500 MG TAB.SR.12H PO SCH ×2 (10:22→21:37)
[2020-03-20] MEDS: ESCITALOPRAM OXALATE 10 MG TABLET PO SCH (10:22)
[2020-03-20] MEDS: ASPIRIN 81 MG TABLET, CHEWABLE PO SCH (10:23)
[2020-03-20] MEDS: CHOLECALCIFEROL (D3) 1,000 UNIT (25 MCG) TABLET PO SCH (10:23)
[2020-03-20] MEDS: CLOPIDOGREL BISULFATE 75 MG TABLET PO SCH (10:23)
[2020-03-20] MEDS: CYANOCOBALAMIN (VITAMIN B-12) 1,000 MCG TABLET PO SCH (10:23)
[2020-03-20] MEDS: FOLIC ACID 1 MG TABLET PO SCH (10:23)
[2020-03-20] MEDS: GABAPENTIN 300 MG CAPSULE PO SCH ×2 (10:23→21:35)
[2020-03-20] MEDS: METOPROLOL TARTRATE 50 MG TABLET PO SCH ×2 (10:23→21:36)
[2020-03-20] MEDS: ENOXAPARIN SODIUM INJ 40 MG/0.4 ML DISP.SYRIN SUBCUT SCH (10:24)
[2020-03-20] MEDS: VANCOMYCIN HCL 750 MG in DEXTROSE 5%-WATER 250 ML IV SCH ×2 (10:26→21:37)
--- NOTE | 2020-03-20 11:14 | PDOC PROGRESS REPORT ---
Subjective Progress Note for:: 03/20/20 Subjective:: Doing well. Speaking with nurse. Very comfortable and no chest pain. Reason For Visit: SEPTIC SHOCK,ACUTE KIDNEY INJURY Physical Exam Vital Signs: Temp Pulse Resp BP Pulse Ox 97.6 F 65 16 117/57 L 93 03/20/20 07:26 03/20/20 08:08 03/20/20 08:08 03/20/20 07:26 03/20/20 08:08 Intake & Output 03/19/20 03/20/20 03/21/20 06:59 06:59 06:59 Intake Total 1571 2743 250 Output Total 1500 1900 Balance 71 843 250 Weight 87.2 kg 87.9 kg General appearance: PRESENT: cooperative, obese, well-developed, well-nourished Head exam: PRESENT: atraumatic, normocephalic Eye exam: PRESENT: conjunctiva pink, EOMI Mouth exam: PRESENT: moist Respiratory exam: PRESENT: symmetrical, unlabored Cardiovascular exam: PRESENT: RRR, +S1, +S2 Pulses: PRESENT: normal radial pulses GI/Abdominal exam: PRESENT: soft Rectal exam: PRESENT: deferred Neurological exam: PRESENT: alert, awake, oriented to person, oriented to place Skin exam: PRESENT: dry, intact, normal color Results Laboratory Results: 03/20/20 08:09 03/20/20 08:09 03/20/20 03/20/20 03/20/20 06:11 06:11 06:11 WBC Cancelled RBC Cancelled Hgb Cancelled Hct Cancelled MCV Cancelled MCH Cancelled MCHC Cancelled RDW Cancelled Plt Count Cancelled Seg Neutrophils % Cancelled Sodium Cancelled Potassium Cancelled Chloride Cancelled Carbon Dioxide Cancelled Anion Gap Cancelled BUN Cancelled Creatinine Cancelled Est GFR ( Amer) Cancelled Est GFR (Non-Af Amer) Cancelled Glucose Cancelled Lactic Acid 1.2 Calcium Cancelled 03/20/20 03/20/20 08:09 08:09 WBC 13.9 H RBC 3.01 L Hgb 9.6 L Hct 28.2 L MCV 94 MCH 31.8 MCHC 33.9 RDW 17.1 H Plt Count 178 Seg Neutrophils % Not Reportable Sodium 132.8 L Potassium 4.5 Chloride 103 Carbon Dioxide 22 Anion Gap 8 BUN 26 H Creatinine 1.14 Est GFR ( Amer) > 60 Est GFR (Non-Af Amer) Glucose 113 H Lactic Acid Calcium 7.8 L 03/18/20 16:50 Blood Blood Culture (PCR) - Final Staphylococcus Species 03/18/20 16:39 Blood Blood Culture (PCR) - Final Staphylococcus Species 03/16/20 20:50 Blood Blood Culture (PCR) - Final Escherichia Coli 03/16/20 20:50 Blood Blood Culture - Final Escherichia Coli 03/16/20 20:10 Blood Blood Culture (PCR) - Final Escherichia Coli 03/16/20 20:10 Blood Blood Culture - Final Escherichia Coli 03/16/20 03/17/20 03/17/20 20:10 13:20 14:35 Troponin I 0.068 Cancelled 7.270 NT-Pro-B Natriuret Pep 03/17/20 03/17/20 03/18/20 19:55 22:43 03:45 Troponin I 7.730 7.150 5.190 NT-Pro-B Natriuret Pep 24906 H 03/18/20 15:21 Troponin I 2.630 NT-Pro-B Natriuret Pep Impressions: Chest X-Ray 03/16/20 19:08 IMPRESSION: Left lung base focal opacity which may represent pneumonia. Assessment & Plan - Diagnosis (1) Gram-negative bacteremia Is this a current diagnosis for this admission?: Yes Plan: Intravenous antibiotics per protocol. Clinically appears to be improving (2) NSTEMI (non-ST elevated myocardial infarction) Is this a current diagnosis for this admission?: Yes Plan: Patient known to have severe atka disease and by his description not amenable to percutaneous coronary intervention. Aggressive medical therapy was being pursued. I would recommend continuing the same There is no significant merit in pursuing ischemia evaluation given that he is completed his event and is presently chest pain-free I would consider continued aggressive medical therapy especially since there is some indication that he has nonviable targets for revascularization. He follows with Dr. Porter and this can be arranged as an outpatient. (3) Septic shock Is this a current diagnosis for this admission?: Yes Plan: Much improved. Clinically defervesced (4) HTN (hypertension) Is this a current diagnosis for this admission?: Yes Plan: Continue home medications per protocol
--- NOTE | 2020-03-20 17:46 | PDOC PROGRESS REPORT ---
Subjective Progress Note for:: 03/20/20 Subjective:: Patient is feeling very comfortable today. He denies any abdominal pain or shortness of breath. Discussed medical plan with him. Reason For Visit: SEPTIC SHOCK,ACUTE KIDNEY INJURY Physical Exam Vital Signs: Temp Pulse Resp BP Pulse Ox 98.2 F 59 L 18 112/51 L 98 03/20/20 15:31 03/20/20 15:31 03/20/20 15:31 03/20/20 15:31 03/20/20 15:31 Intake & Output 03/19/20 03/20/20 03/21/20 06:59 06:59 06:59 Intake Total 1571 2743 1085 Output Total 1500 1900 300 Balance 71 843 785 Weight 87.2 kg 87.9 kg General appearance: PRESENT: no acute distress, cooperative Neck exam: ABSENT: JVD Respiratory exam: PRESENT: symmetrical, unlabored. ABSENT: accessory muscle use, retraction, tachypnea Cardiovascular exam: PRESENT: RRR, +S1, +S2. ABSENT: tachycardia GI/Abdominal exam: PRESENT: soft. ABSENT: rebound, rigid, tenderness Neurological exam: PRESENT: alert, awake, oriented to person, oriented to place, oriented to time Focused psych exam: ABSENT: pressured speech Skin exam: ABSENT: jaundice Results Laboratory Results: 03/20/20 08:09 03/20/20 08:09 03/20/20 03/20/20 03/20/20 06:11 06:11 06:11 WBC Cancelled RBC Cancelled Hgb Cancelled Hct Cancelled MCV Cancelled MCH Cancelled MCHC Cancelled RDW Cancelled Plt Count Cancelled Seg Neutrophils % Cancelled Sodium Cancelled Potassium Cancelled Chloride Cancelled Carbon Dioxide Cancelled Anion Gap Cancelled BUN Cancelled Creatinine Cancelled Est GFR ( Amer) Cancelled Est GFR (Non-Af Amer) Cancelled Glucose Cancelled Lactic Acid 1.2 Calcium Cancelled 03/20/20 03/20/20 08:09 08:09 WBC 13.9 H RBC 3.01 L Hgb 9.6 L Hct 28.2 L MCV 94 MCH 31.8 MCHC 33.9 RDW 17.1 H Plt Count 178 Seg Neutrophils % Not Reportable Sodium 132.8 L Potassium 4.5 Chloride 103 Carbon Dioxide 22 Anion Gap 8 BUN 26 H Creatinine 1.14 Est GFR ( Amer) > 60 Est GFR (Non-Af Amer) Glucose 113 H Lactic Acid Calcium 7.8 L 03/18/20 16:50 Blood Blood Culture (PCR) - Final Staphylococcus Species 03/18/20 16:39 Blood Blood Culture (PCR) - Final Staphylococcus Species 03/16/20 03/17/20 03/17/20 20:10 13:20 14:35 Troponin I 0.068 Cancelled 7.270 NT-Pro-B Natriuret Pep 03/17/20 03/17/20 03/18/20 19:55 22:43 03:45 Troponin I 7.730 7.150 5.190 NT-Pro-B Natriuret Pep 14421 H 03/18/20 15:21 Troponin I 2.630 NT-Pro-B Natriuret Pep Impressions: Chest X-Ray 03/16/20 19:08 IMPRESSION: Left lung base focal opacity which may represent pneumonia. Assessment and Plan - Diagnosis (1) E coli bacteremia Is this a current diagnosis for this admission?: Yes Plan: Secondary to UTI. Initially on cefepime then switched to cefazolin IV. Continue cefazolin for now for now. Repeat blood culture showing no growth of E. coli currently. We will plan to put on oral antibiotics tomorrow. (2) Complicated UTI (urinary tract infection) Is this a current diagnosis for this admission?: Yes Plan: Secondary to E. coli and enterococcus. Indwelling suprapubic catheter which had been changed on admission. Cefazolin and vancomycin. Will de-escalate to oral therapy tomorrow. Patient will likely need 2 different antibiotics orally given there are no common options in terms of susceptibility for both E. coli and enterococcus species that he is growing in his urine. (3) NSTEMI (non-ST elevated myocardial infarction) Is this a current diagnosis for this admission?: Yes Plan: Evaluated by regional controller Dr. Adamson who recommends medical therapy only at this point. He does have history of coronary artery disease with CABG in 2001. Follows with Dr. Christos Mcgill at [facility]. Echocardiogram showing some diastolic dysfunction, normal EF, RV dilation and borderline global hypokinesis of LV Continue aspirin, Plavix, Lopressor, atorvastatin, and Ranexa. Completed 48 hours of heparin infusion 03/19/2020 Outpatient follow-up with Dr. Porter (4) Positive blood culture Is this a current diagnosis for this admission?: Yes Plan: Repeat blood cultures obtained 03/18/2020 shows no growth of E. coli but now incidentally picked up methicillin-resistant coag negative staph in 1of 2 bottles from both sets. These possibly could be contaminants but will continue vancomycin while awaiting repeat blood culture results. (5) Lactic acidosis Is this a current diagnosis for this admission?: Yes Plan: Resolved at this point. (6) Prostate cancer Is this a current diagnosis for this admission?: Yes Plan: History of prostate cancer with radiation therapy administered many years ago but had recurrence a few years ago. Darolutamide will remain on hold given acute infection until patient follows up with Dr. Paul Diaz [urologist] in the office upon discharge. (7) Acute kidney injury Is this a current diagnosis for this admission?: Yes Plan: Resolved with gentle hydration. Creatinine seems to now be at his baseline. Monitor renal function. Avoid nephrotoxic meds. (8) Insomnia Qualifiers: Insomnia type: adjustment Qualified Code(s): F51.02 - Adjustment insomnia Is this a current diagnosis for this admission?: Yes (9) Type 2 diabetes mellitus Is this a current diagnosis for this admission?: Yes (10) Septic shock Is this a current diagnosis for this admission?: Yes Plan: Secondary to E. coli infection. Sepsis currently resolved. COVID-19 negative. - Plan Summary Summary: Physical therapy has been ordered - Time Time Spent with patient: Less than 15 minutes Anticipated Discharge Disposition: Home, Self Care Anticipated Discharge Timeframe: within 36 hours
[2020-03-20] MEDS: MELATONIN 3 MG TABLET PO SCH (21:36)
[2020-03-20] MEDS: ATORVASTATIN CALCIUM 40 MG TABLET PO SCH (21:36)
[2020-03-20] MEDS: INSULIN GLARGINE,HUM.REC.ANLOG 1,000 UNIT/10 ML VIAL SUBCUT SCH (21:38)
[2020-03-21] MEDS: CEFAZOLIN SODIUM 2 GM in DEXTROSE 5%-WATER 100 ML IV SCH ×3 (00:41→13:21)
[2020-03-21] MEDS: PANTOPRAZOLE SODIUM 40 MG TABLET.DR PO SCH (05:43)
[2020-03-21 06:34] LABS: HEMATOCRIT 30.6 % (37.9-51.0); HEMOGLOBIN 10.3 g/dL (13.5-17.0); MEAN CORPUSCULAR HEMOGLOBIN 31.7 pg (27.0-33.4); MEAN CORPUSCULAR HGB CONC 33.7 g/dL (32.0-36.0); MEAN CORPUSCULAR VOLUME 94 fl (80-97); PLATELET COUNT 172 10^3/uL (150-450); RED BLOOD COUNT 3.25 10^6/uL (4.35-5.55); WHITE BLOOD COUNT 14.3 10^3/uL (4.0-10.5)
[2020-03-21 06:52] LABS: ANION GAP 9 (5-19); BLOOD UREA NITROGEN 23 mg/dL (7-20); CALCIUM 8.1 mg/dL (8.4-10.2); CARBON DIOXIDE 21 mmol/L (22-30); CHLORIDE 106 mmol/L (98-107); GLUCOSE 136 mg/dL (75-110); POTASSIUM 3.9 mmol/L (3.6-5.0)
[2020-03-21 07:18] LABS: ABSOLUTE LYMPHOCYTES# (MANUAL) 1.7 10^3/uL (0.5-4.7); ABSOLUTE MONOCYTES # (MANUAL) 0.9 10^3/uL (0.1-1.4); BAND NEUTROPHILS % (MANUAL) 1 % (3-5); BASOPHILS % (MANUAL) 0 % (0-2); EOSINOPHILS % (MANUAL) 0 % (0-6); LYMPHOCYTES % (MANUAL) 12 % (13-45); MONOCYTES % (MANUAL) 6 % (3-13); PROMYELOCYTES % (MANUAL) 1 % (0); SEGMENTED NEUTROPHILS % (MAN) 80 % (42-78); TOTAL CELLS COUNTED 100
[2020-03-21 07:19] LABS: ANISOCYTOSIS 1+; PLATELET CLUMPS PRESENT; PLATELET COMMENT ADEQUATE
[2020-03-21] MEDS: LEVALBUTEROL HCL NEB 1.25 MG/3 ML AMPUL NEB PRN (08:50)
[2020-03-21] MEDS: INSULIN REG, HUMAN 100 UNIT/ML 3 ML VIAL (PYX) SUBCUT SCH ×2 (08:57→12:48)
[2020-03-21] MEDS: RANOLAZINE 500 MG TAB.SR.12H PO SCH (10:13)
[2020-03-21] MEDS: FOLIC ACID 1 MG TABLET PO SCH (10:14)
[2020-03-21] MEDS: CHOLECALCIFEROL (D3) 1,000 UNIT (25 MCG) TABLET PO SCH (10:14)
[2020-03-21] MEDS: METOPROLOL TARTRATE 50 MG TABLET PO SCH (10:14)
[2020-03-21] MEDS: CLOPIDOGREL BISULFATE 75 MG TABLET PO SCH (10:14)
[2020-03-21] MEDS: GABAPENTIN 300 MG CAPSULE PO SCH (10:14)
[2020-03-21] MEDS: CYANOCOBALAMIN (VITAMIN B-12) 1,000 MCG TABLET PO SCH (10:14)
[2020-03-21] MEDS: ENOXAPARIN SODIUM INJ 40 MG/0.4 ML DISP.SYRIN SUBCUT SCH (10:14)
[2020-03-21] MEDS: ESCITALOPRAM OXALATE 10 MG TABLET PO SCH (10:14)
[2020-03-21] MEDS: ASPIRIN 81 MG TABLET, CHEWABLE PO SCH (10:14)
[2020-03-21] MEDS: VANCOMYCIN HCL 750 MG in DEXTROSE 5%-WATER 250 ML IV SCH (11:17)
[2020-03-21 11:47] LABS: VANCOMYCIN,TROUGH 13.4 ug/mL (5.0-20.0)
--- NOTE | 2020-03-21 14:12 | PDOC DISCHARGE SUMMARY ---
Impression - Admit/DC Date/PCP Admission Date/Primary Care Provider: 03/17/20 02:48 MAE DIA Discharge Date: 03/21/20 - Discharge Diagnosis (1) E coli bacteremia Is this a current diagnosis for this admission?: Yes (2) Complicated UTI (urinary tract infection) Is this a current diagnosis for this admission?: Yes (3) NSTEMI (non-ST elevated myocardial infarction) Is this a current diagnosis for this admission?: Yes (4) Positive blood culture Is this a current diagnosis for this admission?: Yes (5) Lactic acidosis Is this a current diagnosis for this admission?: Yes (6) Prostate cancer Is this a current diagnosis for this admission?: Yes (7) Acute kidney injury Is this a current diagnosis for this admission?: Yes (8) Insomnia Is this a current diagnosis for this admission?: Yes (9) Type 2 diabetes mellitus Is this a current diagnosis for this admission?: Yes (10) Septic shock Is this a current diagnosis for this admission?: Yes - Assessment Summary: Physical therapy has been ordered - Additional Information Resuscitation Status: Full Code Discharge Diet: Cardiac, Diabetic Referrals: MAE DIA MD [Primary Care Provider] - Follow up as needed KAYLIN TABARES MD [NO LOCAL MD] - (2 weeks) LORENA GROVES MD [ASSOCIATE] - Prescriptions: Loperamide HCl [Imodium 2 mg Capsule] 2 mg PO Q6HP PRN #20 capsule PRN Reason: Cephalexin Monohydrate [Keflex 500 mg Capsule] 500 mg PO TID 6 Days Metoprolol Tartrate [Lopressor 25 mg Tablet] 25 mg PO Q12 #60 tab Melatonin [Melatonin 5 mg Tablet] 5 mg PO HSP PRN #20 tablet PRN Reason: Clopidogrel Bisulfate [Plavix 75 mg Tablet] 75 mg PO DAILY #30 tablet Linezolid [Zyvox 600 mg Tablet] 600 mg PO Q12 5 Days #10 tablet Home Medications: Cyanocobalamin (Vitamin B-12) [Vitamin B-12 1000 mcg Tablet] 1,000 mcg PO DAILY 09/13/17 Diphenhydramine HCl [Benadryl 25 mg Capsule] 50 mg PO HSP PRN 09/13/17 Escitalopram Oxalate [Lexapro 10 mg Tablet] 10 mg PO DAILY 09/13/17 Fenofibrate [Lipofen] 150 mg PO QHS 09/13/17 Folic Acid [Folvite 1 mg Tablet] 1 mg PO DAILY 09/13/17 Gabapentin [Neurontin 300 mg Capsule] 600 mg PO Q6 09/13/17 Insulin Aspart [Novolog Insulin (Aspart) 100 unit/mL] 30 unit SUBCUT .SLIDING SCALE 09/13/17 Insulin Degludec [Tresiba Flextouch U-200] 70 units SUBCUT QHS 09/13/17 Esomeprazole Magnesium [Nexium] 20 mg PO QAM 01/24/19 Nitroglycerin 0.4 mg SL Q5MP PRN 01/24/19 Ubidecarenone [Coq-10] 100 mg PO DAILY 02/07/19 Cholecalciferol (Vitamin D3) [Vitamin D3 1000 Unit Tablet] 1,000 unit PO DAILY 03/17/20 Ranolazine [Ranolazine ER] 1,000 mg PO Q12 03/17/20 Rosuvastatin Calcium [Crestor] 20 mg PO QHS 03/17/20 Cephalexin Monohydrate [Keflex 500 mg Capsule] 500 mg PO TID 6 Days 03/21/20 Clopidogrel Bisulfate [Plavix 75 mg Tablet] 75 mg PO DAILY #30 tablet 03/21/20 Linezolid [Zyvox 600 mg Tablet] 600 mg PO Q12 5 Days #10 tablet 03/21/20 Loperamide HCl [Imodium 2 mg Capsule] 2 mg PO Q6HP PRN #20 capsule 03/21/20 Melatonin [Melatonin 5 mg Tablet] 5 mg PO HSP PRN #20 tablet 03/21/20 Metoprolol Tartrate [Lopressor 25 mg Tablet] 25 mg PO Q12 #60 tab 03/21/20 History of Present Illiness History of Present Illness: According to admitting provider: This 79-year-old male presented to [facility] emergency department with complaints of fever, chills, cough and purulent urine. Patient reports that he was experiencing the symptoms for about 1 day prior to presentation. The emergency department, he was found to be hypotensive. He was given 2 L of normal saline IV and was started on norepinephrine infusion. At the time of clinical interview, the patient is awake, alert and follows commands. He is on room air. He is on norepinephrine at 3 mcg/min. Systolic blood pressure 100s. He does report known exposure to COVID-19; however, he is under the impression that all of his contacts had "recovered". He lives at home with his , who he reports is in good health. Hospital Course Hospital Course: Patient was admitted to the hospital for septic shock and was admitted directly to the ICU. He was placed briefly on Levophed subsequently discontinued once his pressures became normal. He of course received IV fluid resuscitation. Sepsis was secondary to UTI and urine culture grew E. coli as well as enterococcus. He was also noted to have E. coli bacteremia from the UTI. He was treated with IV antibiotics. During his ICU stay, he was also noted to have an NSTEMI. His N STEMI was secondary to chronic CAD in the setting of septic shock. Was evaluated by Dr. Louis Adamson [coater carbon paper] who recommended medical management. Patient received 48 hours on a heparin drip. Patient was also treated with aspirin Plavix, Ranexa and metoprolol. Of note, patient states he had left heart cath last year which had showed that he had complete occlusion which could not be intervened on. He follows with Dr. Lorena Groves. Patient had no evidence of chest pain throughout his hospital stay. Patient was later downgraded to the medical floor. In the IMCU, patient continued receiving IV antibiotics for his infection. Repeat blood cultures were obtained which showed clearance of E. coli bacteremia. However repeat blood cultures incidentally picked up on Staphylococcus [id number] 1/2 bottles of both sets of blood cultures. It is very likely this is just likely a contaminant as such repeat blood cultures were obtained which are negative. Patient is being discharged on linezolid for treatment of enterococcus UTI given penicillin allergy. The linezolid should also cover methicillin resistant staph hominis if supposedly it is a true bacteremia. As mentioned before it is unlikely to be true bacteremia. For patient's E. coli complicated UTI, patient is being discharged with Keflex. Patient has been evaluated by physical therapy and cleared for home. Discussed discharge plan with patient and patient's . Patient will be following up with his coater carbon paper, urologist and his primary care provider for further care. Physical Exam Vital Signs: Temp Pulse Resp BP Pulse Ox 97.5 F 60 16 125/55 L 99 03/21/20 07:46 03/21/20 08:50 03/21/20 08:50 03/21/20 07:46 03/21/20 08:50 Intake & Output 03/20/20 03/21/20 03/22/20 06:59 06:59 06:59 Intake Total 2743 2605 830 Output Total 1900 2575 600 Balance 843 30 230 Weight 87.9 kg 88.1 kg General appearance: PRESENT: no acute distress, cooperative Neck exam: ABSENT: JVD Respiratory exam: PRESENT: symmetrical, unlabored. ABSENT: tachypnea Cardiovascular exam: PRESENT: +S1, +S2 GI/Abdominal exam: PRESENT: soft. ABSENT: tenderness Neurological exam: PRESENT: alert, awake Psychiatric exam: ABSENT: agitated, anxious Skin exam: ABSENT: jaundice Results Laboratory Results: WBC 14.3 10^3/uL (4.0-10.5) H 03/21/20 05:55 RBC 3.25 10^6/uL (4.35-5.55) L 03/21/20 05:55 Hgb 10.3 g/dL (13.5-17.0) L 03/21/20 05:55 Hct 30.6 % (37.9-51.0) L 03/21/20 05:55 MCV 94 fl (80-97) 03/21/20 05:55 MCH 31.7 pg (27.0-33.4) 03/21/20 05:55 MCHC 33.7 g/dL (32.0-36.0) 03/21/20 05:55 RDW 17.0 % (11.5-14.0) H 03/21/20 05:55 Plt Count 172 10^3/uL (150-450) 03/21/20 05:55 Lymph % (Auto) Not Reportable 03/21/20 05:55 Williams % (Auto) Not Reportable 03/21/20 05:55 Eos % (Auto) Not Reportable 03/21/20 05:55 Baso % (Auto) Not Reportable 03/21/20 05:55 Absolute Neuts (auto) Not Reportable 03/21/20 05:55 Absolute Lymphs (auto) Not Reportable 03/21/20 05:55 Absolute Monos (auto) Not Reportable 03/21/20 05:55 Absolute Eos (auto) Not Reportable 03/21/20 05:55 Absolute Basos (auto) Not Reportable 03/21/20 05:55 Total Counted 100 03/21/20 05:55 Seg Neutrophils % Not Reportable 03/21/20 05:55 Seg Neuts % (Manual) 80 % (42-78) H 03/21/20 05:55 Band Neutrophils % 1 % (3-5) L 03/21/20 05:55 Lymphocytes % (Manual) 12 % (13-45) L 03/21/20 05:55 Monocytes % (Manual) 6 % (3-13) 03/21/20 05:55 Eosinophils % (Manual) 0 % (0-6) 03/21/20 05:55 Basophils % (Manual) 0 % (0-2) 03/21/20 05:55 Promyelocytes % 1 % (0) H 03/21/20 05:55 Abs Neuts (Manual) 11.7 10^3/uL (1.7-8.2) H 03/21/20 05:55 Abs Lymphs (Manual) 1.7 10^3/uL (0.5-4.7) 03/21/20 05:55 Abs Monocytes (Manual) 0.9 10^3/uL (0.1-1.4) 03/21/20 05:55 Absolute Eos (Manual) 0.0 10^3/uL (0.0-0.6) 03/21/20 05:55 Abs Basophils (Manual) 0.0 10^3/uL (0.0-0.2) 03/21/20 05:55 Nucleated RBCs 1 /100 WBC (0) 03/19/20 06:05 Toxic Granulation 1+ 03/19/20 06:05 Toxic Vacuolation PRESENT 03/19/20 06:05 Platelet Estimate Cancelled 03/20/20 06:11 Clumped Platelets PRESENT 03/21/20 05:55 Large Platelets PRESENT 03/20/20 08:09 Platelet Comment ADEQUATE 03/21/20 05:55 Polychromasia SLIGHT 03/18/20 03:45 Anisocytosis 1+ 03/21/20 05:55 PT 14.4 SEC (11.4-15.4) 03/16/20 20:10 INR 1.09 03/16/20 20:10 APTT 64.4 SEC (23.5-35.8) H 03/19/20 09:03 VBG pH 7.41 (7.30-7.42) 03/16/20 20:10 VBG pCO2 34.1 mmHg (35-63) L 03/16/20 20:10 VBG HCO3 21.0 mmol/L (20-32) 03/16/20 20:10 VBG Base Excess -3.0 mmol/L 03/16/20 20:10 Sodium 136.4 mmol/L (137-145) L 03/21/20 05:55 Potassium 3.9 mmol/L (3.6-5.0) 03/21/20 05:55 Chloride 106 mmol/L (98-107) 03/21/20 05:55 Carbon Dioxide 21 mmol/L (22-30) L 03/21/20 05:55 Anion Gap 9 (5-19) 03/21/20 05:55 BUN 23 mg/dL (7-20) H 03/21/20 05:55 Creatinine 1.14 mg/dL (0.52-1.25) 03/21/20 05:55 Est GFR ( Amer) > 60 (>60) 03/21/20 05:55 Est GFR (Non-Af Amer) Cancelled 03/20/20 06:11 Est GFR (MDRD) Non-Af > 60 (>60) 03/21/20 05:55 Glucose 136 mg/dL (75-110) H 03/21/20 05:55 POC Glucose 293 mg/dL (70-110) H 03/21/20 12:11 Lactic Acid 1.2 mmol/L (0.7-2.1) 03/20/20 06:11 Calcium 8.1 mg/dL (8.4-10.2) L 03/21/20 05:55 Phosphorus 3.7 mg/dL (2.5-4.5) 03/18/20 03:45 Magnesium 2.2 mg/dL (1.6-2.3) 03/19/20 06:05 Total Bilirubin 0.7 mg/dL (0.2-1.3) 03/16/20 20:10 Direct Bilirubin 0.4 mg/dL (0.0-0.4) 03/16/20 20:10 Neonat Total Bilirubin Not Reportable 03/16/20 20:10 Neonat Direct Bilirubin Not Reportable 03/16/20 20:10 Neonat Indirect Bili Not Reportable 03/16/20 20:10 AST 42 U/L (17-59) 03/16/20 20:10 ALT 19 U/L (<50) 03/16/20 20:10 Alkaline Phosphatase 151 U/L (38-126) H 03/16/20 20:10 Troponin I 2.630 ng/mL 03/18/20 15:21 NT-Pro-B Natriuret Pep 76822 pg/mL (<450) H 03/18/20 03:45 Total Protein 7.2 g/dL (6.3-8.2) 03/16/20 20:10 Albumin 3.5 g/dL (3.5-5.0) 03/16/20 20:10 Triglycerides 264 mg/dL (<150) H 03/19/20 06:05 Cholesterol 133.91 mg/dL (0-200) 03/19/20 06:05 LDL Cholesterol Direct 68 mg/dL (<100) 03/19/20 06:05 VLDL Cholesterol 52.8 mg/dL (10-31) H 03/19/20 06:05 HDL Cholesterol 17 mg/dL (>40) L 03/19/20 06:05 EGFR Cancelled 03/20/20 06:11 Urine Color BROWN 03/16/20 23:35 Urine Appearance TURBID 03/16/20 23:35 Urine pH 5.0 (5.0-9.0) 03/16/20 23:35 Ur Specific [place] 1.023 03/16/20 23:35 Urine Protein >=500 mg/dL (NEGATIVE) H 03/16/20 23:35 Urine Glucose (UA) NEGATIVE mg/dL (NEGATIVE) 03/16/20 23:35 Urine Ketones TRACE mg/dL (NEGATIVE) H 03/16/20 23:35 Urine Blood NEGATIVE (NEGATIVE) 03/16/20 23:35 Urine Nitrite (Reflex) NEGATIVE (NEGATIVE) 03/16/20 23:35 Urine Bilirubin NEGATIVE (NEGATIVE) 03/16/20 23:35 Urine Urobilinogen 4.0 mg/dL (<2.0) H 03/16/20 23:35 Leukocyte Esterase Rfl TRACE (NEGATIVE) H 03/16/20 23:35 Urine RBC (Auto) 18 /HPF 03/16/20 23:35 Urine Bacteria (Auto) 2+ /HPF 03/16/20 23:35 Urine WBC (Reflex) > 182 /HPF 03/16/20 23:35 Urine WBC Clumps MANY /HPF 03/16/20 23:35 Squamous Epi Cells Auto 4 /HPF 03/16/20 23:35 Urine Mucus (Auto) MANY /LPF 03/16/20 23:35 Urine Ascorbic Acid 40 (NEGATIVE) H 03/16/20 23:35 Stl C. Difficile GDH Ag NEGATIVE (NEGATIVE) 03/18/20 04:31 Stl C.difficile Tox A&B NEGATIVE (NEGATIVE) 03/18/20 04:31 Time Trough Drawn 1057 03/21/20 10:57 Vancomycin Trough 13.4 ug/mL (5.0-20.0) 03/21/20 10:57 COVID-19 Source NASOPHARYNGEAL 03/17/20 01:30 COVID-19 (SHASHI) NOT DETECTED 03/17/20 01:30 Slides for Path Review Cancelled 03/20/20 06:11 03/16/20 03/17/20 03/17/20 20:10 13:20 14:35 Troponin I 0.068 Cancelled 7.270 NT-Pro-B Natriuret Pep 03/17/20 03/17/20 03/18/20 19:55 22:43 03:45 Troponin I 7.730 7.150 5.190 NT-Pro-B Natriuret Pep 25464 H 03/18/20 15:21 Troponin I 2.630 NT-Pro-B Natriuret Pep Impressions: Chest X-Ray 03/16/20 19:08 IMPRESSION: Left lung base focal opacity which may represent pneumonia. Plan Time Spent: Greater than 30 Minutes Stroke Is this a Stroke Patient?: No Acute Heart Failure Is this a Heart Failure Patient?: No
[2020-03-21 14:57] VITALS: BP 126/54
== END 2020-03-21 15:08 | disposition home health service (06) | DRG 698 ==
LOC: ER 18:56 → EH 03-17 02:48 → ICU 03-17 10:42 → 3W 03-18 17:00
PROVIDERS: ADMIT Internal Medicine Critical Care Medicine; ATTEND Internal Medicine
DX: T83.511A Infection and inflammatory reaction due to indwelling urethral catheter, initial encounter (principal); A41.51 Sepsis due to Escherichia coli [E. coli]; I21.4 Non-ST elevation (NSTEMI) myocardial infarction; R65.21 Severe sepsis with septic shock; N17.9 Acute kidney failure, unspecified; N39.0 Urinary tract infection, site not specified; C61 Malignant neoplasm of prostate; Z79.4 Long term (current) use of insulin; I25.10 Atherosclerotic heart disease of native coronary artery without angina pectoris; I25.2 Old myocardial infarction; E78.5 Hyperlipidemia, unspecified; I10 Essential (primary) hypertension; I73.9 Peripheral vascular disease, unspecified; K21.9 Gastro-esophageal reflux disease without esophagitis; M19.90 Unspecified osteoarthritis, unspecified site; E11.51 Type 2 diabetes mellitus with diabetic peripheral angiopathy without gangrene; Y84.6 Urinary catheterization as the cause of abnormal reaction of the patient, or of later complication, without mention of misadventure at the time of the procedure; Z20.828 Contact with and (suspected) exposure to other viral communicable diseases; Z88.0 Allergy status to penicillin; Z88.8 Allergy status to other drugs, medicaments and biological substances; Z88.5 Allergy status to narcotic agent; Z88.7 Allergy status to serum and vaccine; F51.02 Adjustment insomnia; Z92.3 Personal history of irradiation; B95.2 Enterococcus as the cause of diseases classified elsewhere; Z90.49 Acquired absence of other specified parts of digestive tract; Z95.1 Presence of aortocoronary bypass graft; Z89.021 Acquired absence of right finger(s); Z89.422 Acquired absence of other left toe(s)
CPT/HCPCS: 36415; 71045; 80048; 80053; 80061; 80202; 81001; 82803; 82962; 83605; 83735; 83880; 84100; 84132; 84484; 85025; 85610; 85730; 87040; 87077; 87086; 87088; 87150; 87186; 87324; 87449; 87635; 93005; 93010; 93306; 94640; 99291; C9803; J0690; J0692; J1644; J1650; J1815; J2405; J3370; J3475; J3490; J7030; J7060; J7614

== ENCOUNTER 2020-03-23 07:57 | Observation (INO) | payer MEDICARE, BC ==
--- NOTE | 2020-03-23 09:09 | EKG REPORT ---
SEVERITY:- ABNORMAL ECG - SINUS RHYTHM INCOMPLETE RIGHT BUNDLE BRANCH BLOCK BORDERLINE ST DEPRESSION, LATERAL LEADS : Confirmed by: Gregoria Xiong 23-Mar-2020 09:09:08
[2020-03-23 09:23] LABS: HEMATOCRIT 34.1 % (37.9-51.0); HEMOGLOBIN 11.4 g/dL (13.5-17.0); MEAN CORPUSCULAR HEMOGLOBIN 31.9 pg (27.0-33.4); MEAN CORPUSCULAR HGB CONC 33.5 g/dL (32.0-36.0); MEAN CORPUSCULAR VOLUME 95 fl (80-97); PLATELET COUNT 225 10^3/uL (150-450); RED BLOOD COUNT 3.58 10^6/uL (4.35-5.55); RED CELL DISTRIBUTION WIDTH 17.3 % (11.5-14.0); VENOUS BLOOD BASE EXCESS 1.6 mmol/L; VENOUS BLOOD HCO3 26.2 mmol/L (20-32); VENOUS BLOOD PCO2 41.3 mmHg (35-63); VENOUS BLOOD PH 7.42 (7.30-7.42); WHITE BLOOD COUNT 16.5 10^3/uL (4.0-10.5)
[2020-03-23 09:32] LABS: APPEARANCE,URINE CLEAR; BILIRUBIN,URINE NEGATIVE (NEGATIVE); COLOR,URINE YELLOW; GLUCOSE, URINE NEGATIVE (NEGATIVE); KETONES,URINE NEGATIVE (NEGATIVE); PROTEIN,URINE 30 mg/dL (NEGATIVE); UROBILINOGEN,URINE NEGATIVE mg/dL (<2.0)
[2020-03-23 09:36] LABS: INTERNATIONAL RATION (INR) 1.14; PROTHROMBIN TIME 14.8 SEC (11.4-15.4)
--- NOTE | 2020-03-23 09:50 | RADIOLOGY REPORT (SQ) ---
EXAM DESCRIPTION: CHEST SINGLE VIEW IMAGES COMPLETED DATE/TIME: 03/23/2020 8:36 am REASON FOR STUDY: dyspnea COMPARISON: 03/16/2020 NUMBER OF VIEWS: One view. TECHNIQUE: Single frontal radiographic image of the chest acquired. LIMITATIONS: None. FINDINGS: LUNGS AND PLEURA: Small pleural effusions, left greater than right. Increasing parenchyma l density in the left costophrenic angle. MEDIASTINUM AND HEART: Stable heart size and mediastinal structures. SUPPORT DEVICES: Appropriate location without change. BONY STRUCTURES: No acute findings. HARDWARE: None. OTHER: No other significant finding. IMPRESSION: Rehydration versus progressing pneumonia or asymmetric edema. Reading location - IP/workstation name: [email or web address]
[2020-03-23 09:56] LABS: ABSOLUTE LYMPHOCYTES# (MANUAL) 2.5 10^3/uL (0.5-4.7); ABSOLUTE MONOCYTES # (MANUAL) 1.3 10^3/uL (0.1-1.4); ANISOCYTOSIS 1+; BAND NEUTROPHILS % (MANUAL) 1 % (3-5); BASOPHILS % (MANUAL) 0 % (0-2); EOSINOPHILS % (MANUAL) 2 % (0-6); LYMPHOCYTES % (MANUAL) 15 % (13-45); MONOCYTES % (MANUAL) 8 % (3-13); PLATELET COMMENT ADEQUATE; SEGMENTED NEUTROPHILS % (MAN) 74 % (42-78); TOTAL CELLS COUNTED 100
[2020-03-23 09:57] LABS: PLATELET LARGE PRESENT; POLYCHROMASIA 1+
[2020-03-23 09:58] LABS: POIKILOCYTOSIS SLIGHT; TARGET CELLS SLIGHT; TEAR DROP CELLS SLIGHT
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
[2020-03-23 10:50] LABS: ALBUMIN 3.5 g/dL (3.5-5.0); ALKALINE PHOSPHATASE 282 U/L (38-126); ANION GAP 8 (5-19); ASPARTATE AMINO TRANSFERASE 131 U/L (17-59); BILIRUBIN,DIRECT 0.8 mg/dL (0.0-0.4); BILIRUBIN,TOTAL 1.3 mg/dL (0.2-1.3); BLOOD UREA NITROGEN 16 mg/dL (7-20); CALCIUM 8.5 mg/dL (8.4-10.2); CARBON DIOXIDE 27 mmol/L (22-30); CHLORIDE 101 mmol/L (98-107); GLUCOSE 148 mg/dL (75-110); POTASSIUM 4.6 mmol/L (3.6-5.0)
--- NOTE | 2020-03-23 12:09 | RADIOLOGY REPORT (SQ) ---
EXAM DESCRIPTION: CTA CHEST IMAGES COMPLETED DATE/TIME: 03/23/2020 11:30 am REASON FOR STUDY: dyspnea, r/o PE COMPARISON: None. TECHNIQUE: CT scan of the chest performed using helical scanning technique with dynamic intravenous contrast injection. Images reviewed with lung, soft tissue and bone windows. Reconstructed coronal and sagittal MPR images reviewed. Additional 3 dimensional post-processing performed to develop Maximal Intensity Projection images (CT P). All images stored on PACS. All CT scanners at this facility use dose modulation, iterative reconstruction, and/or weight based d osing when appropriate to reduce radiation dose to as low as reasonably achievable (ALARA). [facility]: Dose Right [facility]: CareDose [facility]: Dose Right [facility]: Teradose 4D [facility]: Myla CONTRAST TYPE AND DOSE: contrast/concentration: Isovue 350.00 mmol/ml; Total Contrast Delivered: 60. 0 ml; Total Saline Delivered: 70.0 ml RENAL FUNCTION: GFR > 60. RADIATION DOSE: CT Rad equipment meets quality standard of care and radiation dose reduction techniq ues were employed. CTDIvol: 13.2 - 16.7 mGy. DLP: 583 mGy-cm. . LIMITATIONS: None. FINDINGS: LUNGS AND PLEURA: Small bilateral pleural effusions and associated dependent airspace dise ase in the lower lobes. AORTA AND GREAT VESSELS: No aneurysm. No dissection. HEART: No pericardial effusion. Prior CABG. PULMONARY ARTERIES: No emboli visualized in the main pulmonary arteries or the segmental branches. HILAR AND MEDIASTINAL STRUCTURES: 1.9 x 2.3 cm AP window node. HARDWARE: None in the chest. UPPER ABDOMEN: Trace amount of ascites. Limited exam. THYROID AND OTHER SOFT TISSUES: No masses. No adenopathy. BONES: Sclerotic bone metastasis. Compression fracture superior endplate T12. Mild retropulsion. 3D MIPS: Confirm above findings. OTHER: No other significant finding. IMPRESSION: 1. No PE. 2. Bilateral pleural effusions. 3. Sclerotic bone metastasis. Pathologic fracture T12. COMMENT: Quality ID # [id number]: Final reports with documentation of one or more dose reduction techniques (e.g., Automated exposure control, adjustment of the mA and/or kV according to patient size, use of iterative reconstruction technique) TECHNICAL DOCUMENTATION: JOB ID: [id number] 2010 [employer]- All Rights Reserved Reading location - IP/workstation name: [email or web address]
[2020-03-23 12:34] LABS: TROPONIN I 0.288 ng/mL
[2020-03-23] MEDS ORDERED: FUROSEMIDE INJ/PF 20 MG/2 ML SDV IV ONE (13:12)
[2020-03-23] MEDS ORDERED: GLUCAGON,HUMAN RECOMB 1 MG INJ IM PRN (17:14)
[2020-03-23] MEDS ORDERED: DEXTROSE 50%-WATER 25 GM/50 ML DISP.SYRIN IV PRN ×2 (17:14)
[2020-03-23] MEDS ORDERED: DEXTROSE 40% GEL 15 GM TUBE PO PRN ×2 (17:14)
[2020-03-23] MEDS: ESCITALOPRAM OXALATE 10 MG TABLET PO SCH (18:44)
[2020-03-23] MEDS: GABAPENTIN 300 MG CAPSULE PO SCH ×2 (18:44→23:10)
[2020-03-23] MEDS: CLOPIDOGREL BISULFATE 75 MG TABLET PO SCH (18:44)
[2020-03-23] MEDS: FENOFIBRATE NANOCRYSTALLIZED 145 MG TABLET PO SCH (18:48)
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
[2020-03-23] MEDS ORDERED: MELATONIN 5 MG TABLET PO SCH (22:00)
[2020-03-23] MEDS ORDERED: ATORVASTATIN CALCIUM 80 MG TABLET PO SCH (22:00)
[2020-03-23] MEDS: RANOLAZINE 500 MG TAB.SR.12H PO SCH (22:23)
[2020-03-23] MEDS: METOPROLOL TARTRATE 25 MG TABLET PO SCH (22:23)
[2020-03-23] MEDS: LINEZOLID 600 MG TABLET PO SCH (22:23)
[2020-03-23] MEDS: INSULIN LISPRO 100 UNIT/ML 3 ML VIAL SUBCUT SCH (22:23)
[2020-03-23] MEDS: CEPHALEXIN 500 MG CAPSULE PO SCH (22:23)
[2020-03-24] MEDS: CEPHALEXIN 500 MG CAPSULE PO SCH (05:35)
[2020-03-24] MEDS: GABAPENTIN 300 MG CAPSULE PO SCH ×2 (05:35→11:46)
[2020-03-24] MEDS ORDERED: PANTOPRAZOLE SODIUM 40 MG TABLET.DR PO SCH (06:00)
[2020-03-24] MEDS: INSULIN LISPRO 100 UNIT/ML 3 ML VIAL SUBCUT SCH ×2 (07:30→11:46)
[2020-03-24] MEDS: METOPROLOL TARTRATE 25 MG TABLET PO SCH (09:57)
[2020-03-24] MEDS: ESCITALOPRAM OXALATE 10 MG TABLET PO SCH (09:57)
[2020-03-24] MEDS: FENOFIBRATE NANOCRYSTALLIZED 145 MG TABLET PO SCH (09:58)
[2020-03-24] MEDS: CLOPIDOGREL BISULFATE 75 MG TABLET PO SCH (09:58)
[2020-03-24] MEDS: RANOLAZINE 500 MG TAB.SR.12H PO SCH (09:58)
[2020-03-24] MEDS ORDERED: FOLIC ACID 1 MG TABLET PO SCH (10:00)
[2020-03-24] MEDS: LINEZOLID 600 MG TABLET PO SCH (10:00)
[2020-03-24] MEDS ORDERED: ENOXAPARIN SODIUM INJ 30 MG/0.3 ML DISP.SYRIN SUBCUT SCH (10:00)
[2020-03-24] MEDS ORDERED: FUROSEMIDE INJ/PF 20 MG/2 ML SDV IV ONE (11:30)
[2020-03-24 12:07] VITALS: BP 151/61
--- NOTE | 2020-03-24 14:03 | PDOC DISCHARGE SUMMARY ---
Impression - Admit/DC Date/PCP Admission Date/Primary Care Provider: 03/23/20 16:25 MAE DIA Discharge Date: 03/24/20 - Discharge Diagnosis (1) Physical deconditioning Is this a current diagnosis for this admission?: Yes (2) Generalized weakness Is this a current diagnosis for this admission?: Yes - Assessment Summary: PAOLA RODRIGUEZ is an 79 year old male with recent admission (03/17 to 03/21) for septic shock due to CAUTI c/b NSTEMI. During his hospitalization, he was evaluated by physical therapy and referred to for Home PT. He was discharged home on 03/21, he was home on 03/22 and then presented to the ED on the morning on 03/23. At home, he has been physically debilitated and weak, requiring a lot of help and support from his and son. He is not interested in going to a SNF for rehab, but had hoped that Home PT would have started on his first day home (03/22). On 03/23, while attempting to get out of bed this morning, he felt very SOB. Family called 911. By the time EMS arrived, he was actually breathing normally and not requiring O2, but the EMS reportedly encouraged the family to get him "checked out" at the hospital "for some labs", to which the family agreed. Here in the ED, he had normal VS and was saturating 100% on room air. However, the patient felt too weak to go home, and so he was referred to the hospitalist service for observation overnight. At this time, Mr. Rodriguez denies any SOB, LAWSON, chest pain, chest pressure, dizziness, lightheadedness, orthopnea, abd pain, nausea, vomiting, diarrhea, fevers/chills or sick contacts. He has been taking his medications as prescribed. He will be admitted for observation overnight. He does not appear to be in acute CHF, and in fact his pro-BNP is almost half what it was a week ago. His dyspnea on exertion on the morning of admission was likely related to deconditioning, and he will require extensive ongoing PT. Discharge planning consulted to touch base with his home health agency to ensure that they could come out to see him this week. He was discharged home in stable condition the following day with resumption of Home Health for PT. - Additional Information Resuscitation Status: Full Code Discharge Diet: Cardiac Discharge Activity: Activity As Tolerated Referrals: MAE DIA MD [Primary Care Provider] - 03/30/20 11:15 am Prescriptions: Furosemide [Lasix 20 mg Tablet] 20 mg PO QAM #30 tablet Home Medications: Cyanocobalamin (Vitamin B-12) [Vitamin B-12 1000 mcg Tablet] 1,000 mcg PO DAILY 09/13/17 Escitalopram Oxalate [Lexapro 10 mg Tablet] 10 mg PO DAILY 09/13/17 Fenofibrate [Lipofen] 150 mg PO QHS 09/13/17 Folic Acid [Folvite 1 mg Tablet] 1 mg PO DAILY 09/13/17 Gabapentin [Neurontin 300 mg Capsule] 600 mg PO Q6 09/13/17 Insulin Aspart [Novolog Insulin (Aspart) 100 unit/mL] 30 unit SUBCUT .SLIDING SCALE 09/13/17 Insulin Degludec [Tresiba Flextouch U-200] 70 units SUBCUT QHS 09/13/17 Nitroglycerin 0.4 mg SL Q5MP PRN 01/24/19 Ubidecarenone [Coq-10] 100 mg PO DAILY 02/07/19 Cholecalciferol (Vitamin D3) [Vitamin D3 1000 Unit Tablet] 1,000 unit PO DAILY 03/17/20 Ranolazine [Ranolazine ER] 1,000 mg PO Q12 03/17/20 Rosuvastatin Calcium [Crestor] 20 mg PO QHS 03/17/20 Clopidogrel Bisulfate [Plavix 75 mg Tablet] 75 mg PO DAILY #30 tablet 03/21/20 Metoprolol Tartrate [Lopressor 25 mg Tablet] 25 mg PO Q12 #60 tab 03/21/20 Darolutamide [Nubeqa] 600 mg PO BID 03/23/20 Esomeprazole Magnesium [Nexium] 20 mg PO DAILY 03/23/20 Furosemide [Lasix 20 mg Tablet] 20 mg PO QAM #30 tablet 03/24/20 History of Present Illiness History of Present Illness: PAOLA RODRIGUEZ is an 79 year old male with recent admission (03/17 to 03/21) for septic shock due to CAUTI c/b NSTEMI. During his hospitalization, he was evaluated by physical therapy and referred to for Home PT. He was discharged home on 03/21, he was home on 03/22 and then presented to the ED on the morning on 03/23. History obtained from patient and his son. At home, he has been physically debilitated and weak, requiring a lot of help and support from his and son. He is not interested in going to a SNF for rehab, but had hoped that Home PT would have started on his first day home (03/22). On 03/23, while attempting to get out of bed this morning, he felt very SOB. Family called 911. By the time EMS arrived, he was actually breathing normally and not requiring O2, but the EMS reportedly encouraged the family to get him "checked out" at the hospital "for some labs", to which the family agreed. Here in the ED, he had normal VS and was saturating 100% on room air. However, the patient felt too weak to go home, and so he was referred to the hospitalist service for observation overnight. At this time, Mr. Rodriguez denies any SOB, LAWSON, chest pain, chest pressure, dizziness, lightheadedness, orthopnea, abd pain, nausea, vomiting, diarrhea, fevers/chills or sick contacts. He has been taking his medications as prescribed. Physical Exam Vital Signs: Temp Pulse Resp BP Pulse Ox 98.5 F 66 18 151/61 H 97 03/24/20 13:01 03/24/20 13:01 03/24/20 13:01 03/24/20 13:01 03/24/20 13:01 Intake & Output 03/23/20 03/24/20 03/25/20 06:59 06:59 06:59 Intake Total 1060 480 Output Total 3247 Balance -2187 480 Weight 79 kg Results Laboratory Results: WBC 16.5 10^3/uL (4.0-10.5) H 03/23/20 08:55 RBC 3.58 10^6/uL (4.35-5.55) L 03/23/20 08:55 Hgb 11.4 g/dL (13.5-17.0) L 03/23/20 08:55 Hct 34.1 % (37.9-51.0) L 03/23/20 08:55 MCV 95 fl (80-97) 03/23/20 08:55 MCH 31.9 pg (27.0-33.4) 03/23/20 08:55 MCHC 33.5 g/dL (32.0-36.0) 03/23/20 08:55 RDW 17.3 % (11.5-14.0) H 03/23/20 08:55 Plt Count 225 10^3/uL (150-450) 03/23/20 08:55 Lymph % (Auto) Not Reportable 03/23/20 08:55 [place] % (Auto) Not Reportable 03/23/20 08:55 Eos % (Auto) Not Reportable 03/23/20 08:55 Baso % (Auto) Not Reportable 03/23/20 08:55 Absolute Neuts (auto) Not Reportable 03/23/20 08:55 Absolute Lymphs (auto) Not Reportable 03/23/20 08:55 Absolute Monos (auto) Not Reportable 03/23/20 08:55 Absolute Eos (auto) Not Reportable 03/23/20 08:55 Absolute Basos (auto) Not Reportable 03/23/20 08:55 Total Counted 100 03/23/20 08:55 Seg Neutrophils % Not Reportable 03/23/20 08:55 Seg Neuts % (Manual) 74 % (42-78) 03/23/20 08:55 Band Neutrophils % 1 % (3-5) L 03/23/20 08:55 Lymphocytes % (Manual) 15 % (13-45) 03/23/20 08:55 Monocytes % (Manual) 8 % (3-13) 03/23/20 08:55 Eosinophils % (Manual) 2 % (0-6) 03/23/20 08:55 Basophils % (Manual) 0 % (0-2) 03/23/20 08:55 Abs Neuts (Manual) 12.4 10^3/uL (1.7-8.2) H 03/23/20 08:55 Abs Lymphs (Manual) 2.5 10^3/uL (0.5-4.7) 03/23/20 08:55 Abs Monocytes (Manual) 1.3 10^3/uL (0.1-1.4) 03/23/20 08:55 Absolute Eos (Manual) 0.3 10^3/uL (0.0-0.6) 03/23/20 08:55 Abs Basophils (Manual) 0.0 10^3/uL (0.0-0.2) 03/23/20 08:55 Large Platelets PRESENT 03/23/20 08:55 Platelet Comment ADEQUATE 03/23/20 08:55 Polychromasia 1+ 03/23/20 08:55 Poikilocytosis SLIGHT 03/23/20 08:55 Anisocytosis 1+ 03/23/20 08:55 Target Cells SLIGHT 03/23/20 08:55 Tear Drop Cells SLIGHT 03/23/20 08:55 PT 14.8 SEC (11.4-15.4) 03/23/20 08:55 INR 1.14 03/23/20 08:55 VBG pH 7.42 (7.30-7.42) 03/23/20 08:55 VBG pCO2 41.3 mmHg (35-63) 03/23/20 08:55 VBG HCO3 26.2 mmol/L (20-32) 03/23/20 08:55 VBG Base Excess 1.6 mmol/L 03/23/20 08:55 Sodium 136.2 mmol/L (137-145) L 03/23/20 10:10 Potassium 4.6 mmol/L (3.6-5.0) 03/23/20 10:10 Chloride 101 mmol/L (98-107) 03/23/20 10:10 Carbon Dioxide 27 mmol/L (22-30) 03/23/20 10:10 Anion Gap 8 (5-19) 03/23/20 10:10 BUN 16 mg/dL (7-20) 03/23/20 10:10 Creatinine 0.95 mg/dL (0.52-1.25) 03/23/20 10:10 Est GFR ( Amer) > 60 (>60) 03/23/20 10:10 Est GFR (Non-Af Amer) Cancelled 03/23/20 08:55 Est GFR (MDRD) Non-Af > 60 (>60) 03/23/20 10:10 Glucose 148 mg/dL (75-110) H 03/23/20 10:10 POC Glucose 217 mg/dL (70-110) H 03/24/20 11:31 Lactic Acid 1.3 mmol/L (0.7-2.1) 03/23/20 08:55 Calcium 8.5 mg/dL (8.4-10.2) 03/23/20 10:10 Total Bilirubin 1.3 mg/dL (0.2-1.3) 03/23/20 10:10 Direct Bilirubin 0.8 mg/dL (0.0-0.4) H 03/23/20 10:10 Neonat Total Bilirubin Not Reportable 03/23/20 10:10 Neonat Direct Bilirubin Not Reportable 03/23/20 10:10 Neonat Indirect Bili Not Reportable 03/23/20 10:10 AST 131 U/L (17-59) H 03/23/20 10:10 ALT 46 U/L (<50) 03/23/20 10:10 Alkaline Phosphatase 282 U/L (38-126) H 03/23/20 10:10 Troponin I 0.288 ng/mL 03/23/20 11:30 NT-Pro-B Natriuret Pep 78584 pg/mL (<450) H 03/23/20 11:30 Total Protein 8.0 g/dL (6.3-8.2) 03/23/20 10:10 Albumin 3.5 g/dL (3.5-5.0) 03/23/20 10:10 EGFR Cancelled 03/23/20 08:55 Urine Color YELLOW 03/23/20 08:55 Urine Appearance CLEAR 03/23/20 08:55 Urine pH 6.0 (5.0-9.0) 03/23/20 08:55 Ur Specific Jay Em 1.010 03/23/20 08:55 Urine Protein 30 mg/dL (NEGATIVE) H 03/23/20 08:55 Urine Glucose (UA) NEGATIVE mg/dL (NEGATIVE) 03/23/20 08:55 Urine Ketones NEGATIVE mg/dL (NEGATIVE) 03/23/20 08:55 Urine Blood NEGATIVE (NEGATIVE) 03/23/20 08:55 Urine Nitrite (Reflex) NEGATIVE (NEGATIVE) 03/23/20 08:55 Urine Bilirubin NEGATIVE (NEGATIVE) 03/23/20 08:55 Urine Urobilinogen NEGATIVE mg/dL (<2.0) 03/23/20 08:55 Leukocyte Esterase Rfl SMALL (NEGATIVE) H 03/23/20 08:55 Urine RBC (Auto) 2 /HPF 03/23/20 08:55 Urine WBC (Reflex) 15 /HPF 03/23/20 08:55 Urine Ascorbic Acid NEGATIVE (NEGATIVE) 03/23/20 08:55 03/23/20 11:30 Troponin I 0.288 NT-Pro-B Natriuret Pep 56141 H Impressions: Chest X-Ray 03/23/20 08:12 IMPRESSION: Rehydration versus progressing pneumonia or asymmetric edema. Chest/Abdomen CTA 03/23/20 10:16 IMPRESSION: 1. No PE. 2. Bilateral pleural effusions. 3. Sclerotic bone metastasis. Pathologic fracture T12. Stroke Is this a Stroke Patient?: No Acute Heart Failure Is this a Heart Failure Patient?: No
== END 2020-03-24 13:44 | disposition home health service (06) ==
LOC: ER 07:57 → EH 16:25 → 4N 18:22
PROVIDERS: ADMIT Hospitalist; ATTEND Hospitalist
DX: R53.81 Other malaise (principal); R53.1 Weakness; I25.2 Old myocardial infarction; E78.5 Hyperlipidemia, unspecified; I10 Essential (primary) hypertension; I25.10 Atherosclerotic heart disease of native coronary artery without angina pectoris; J44.9 Chronic obstructive pulmonary disease, unspecified; E11.51 Type 2 diabetes mellitus with diabetic peripheral angiopathy without gangrene; K21.9 Gastro-esophageal reflux disease without esophagitis; M19.90 Unspecified osteoarthritis, unspecified site; F32.9 Major depressive disorder, single episode, unspecified; Z79.4 Long term (current) use of insulin; Z79.899 Other long term (current) drug therapy; Z79.02 Long term (current) use of antithrombotics/antiplatelets; Z95.1 Presence of aortocoronary bypass graft; Z95.5 Presence of coronary angioplasty implant and graft; Z89.021 Acquired absence of right finger(s); Z89.422 Acquired absence of other left toe(s); Z88.6 Allergy status to analgesic agent; Z88.0 Allergy status to penicillin; Z88.7 Allergy status to serum and vaccine; Z88.8 Allergy status to other drugs, medicaments and biological substances; Z86.73 Personal history of transient ischemic attack (TIA), and cerebral infarction without residual deficits
CPT/HCPCS: 93005; 99285; 36415; 87040; 87086; 82962 ×2; 83605; 85025; 85610; 80053; 81001; 84484; 82803; 83880; 71045; 71275; 93010; 97530; 97161; G0378 ×3; A9270 ×22; J1940 ×2; J1650; J1815; J3490

== ENCOUNTER → 2020-05-31 | Outpatient (CLI) | payer MEDICARE, BC | LOC: OD 09:19 | PROVIDERS: ATTEND Urology | DX: C61 Malignant neoplasm of prostate (principal) | CPT/HCPCS: 36415; 84153 ==

== ENCOUNTER → 2020-07-12 | Outpatient (CLI) | payer MEDICARE, BC | LOC: OD 11:29 | PROVIDERS: ATTEND Urology | DX: C61 Malignant neoplasm of prostate (principal) | CPT/HCPCS: 36415; 84153 ==